=== PATIENT | female | born 1975 | race Caucasian/White ===

== ENCOUNTER → 2018-06-25 15:00 | Outpatient (CLI) | payer OTHER, SELFPAY | PROVIDERS: Family Provider Family Medicine; PCP Family Medicine; Visit Provider Nurse Practitioner Women's Health | DX: N89.8 Other specified noninflammatory disorders of vagina (principal) | CPT/HCPCS: 87070; 87205 ==

== ENCOUNTER → 2019-07-03 | Outpatient (CLI) | payer OTHER, SELFPAY ==
--- NOTE | 2019-07-03 07:38 | BI_ITS ---
MAMMOGRAPHY - BILATERAL SCREENING REASON FOR EXAM: Female, 43 years old. Routine annual screening examination. PERTINENT HISTORY: Non-contributory. TECHNIQUE: Digital bilateral breast sriram (3D mammographic acquisition) in the CC and MLO projections. 2-D mediolateral oblique (MLO) and craniocaudad (CC) views of both breasts were obtained. CAD: Full Field Digital Mammography with Computer Added Detection was performed. COMPARISON: Comparison is made with prior outside examination dated June 21, 2016. FINDINGS: Breast Composition: The breasts are extremely dense, which lowers the sensitivity of mammography. There are no dominant masses or suspicious calcifications. No other significant abnormalities are identified. There has been no significant change since the prior study. BI/SCREEN MAMM (CAD) W/SRIRAM BILAT IMPRESSION: Stable bilateral screening mammogram. Yearly follow-up mammogram recommended. (A) ASSESSMENT CATEGORY: BIRADS Category 1: Negative. A letter regarding these results will be sent to the patient by the facility within 30 days. Approximately 10% of breast cancers are not detected by mammography. A normal mammogram should not delay biopsy of a clinically suspicious abnormality. [id number] Electronically Signed: Rohan Bey, at 9:26 EDT , Service support ,
[2019-07-03 09:44] LABS: Absolute Lymphocyte Count 1.59 X10^3/uL (0.83-4.51); Absolute Neutrophil Count 3.9 X10^3/uL (2.0-7.7); Basophil# 0.06 X10^3/uL; Eosinophil# 0.09 X10^3/uL; Eosinophils% 1.5 % (0-5); Hematocrit 47.7 % (37-47); Hemoglobin 16.3 g/dL (12.0-15.0); Lymphocyte # 1.59 X10^3/ul (4.0); Lymphocyte % 25.6 % (19-41); Mean Corp Hgb Conc 34.2 g/dL (32-36); Mean Corpuscular Hgb 32.1 pg (27.0-32.0); Mean Corpuscular Volume 94.1 fL (81-99); Mean Platelet Vol. 10.6 fl (6.2-12.0); Monocyte# 0.51 X10^3/uL; Monocyte% 8.2 % (0-10); NRBC Flagged by Analyzer 0 % (0-5); Neutrophil # 3.93 X10^3/uL (2.7-7.7); Neutrophil % 63.4 % (47-70); Platelet Count 179 K/mm3 (150-450); RBC Distribution Width CV 11.9 % (11.6-14.6); Red Blood Count 5.07 M/mm3 (4.2-5.4); White Blood Count 6.2 K/mm3 (4.4-11.0)
[2019-07-03 10:11] LABS: T4 Free Direct 1.22 ng/dL (0.76-1.46); Thyroid Stim Hormone (TSH) 2.84 uIU/mL (0.358-3.74)
== END | disposition home or self-care (01) ==
PROVIDERS: Family Provider Family Medicine; PCP Family Medicine; Referring Provider Nurse Practitioner Women's Health; Visit Provider Nurse Practitioner Women's Health
DX: Z12.31 Encounter for screening mammogram for malignant neoplasm of breast (principal); R53.83 Other fatigue
CPT/HCPCS: 36415; 77063; 77067; 84439; 84443; 85025

== ENCOUNTER → 2020-07-06 | Outpatient (CLI) | payer OTHER, SELFPAY ==
[2020-07-06 09:22] VITALS: BMI 21.9
[2020-07-09 07:35] LABS: HPV APTIMA, High Risk Negative (Negative)
== END | disposition home or self-care (01) ==
LOC: LABSPEC 11:50
PROVIDERS: PCP Family Medicine; Referring Provider Nurse Practitioner Women's Health; Visit Provider Nurse Practitioner Women's Health
DX: Z12.4 Encounter for screening for malignant neoplasm of cervix (principal)
CPT/HCPCS: 87624; 88175; G0145

== ENCOUNTER → 2021-02-11 08:33 | Outpatient (CLI) | payer OTHER, SELFPAY ==
[2020-07-06 09:22] VITALS: BMI 21.9
[2021-02-11 10:46] LABS: Anion Gap 5 (5-15); BUN 12 mg/dL (7-18); BUN/Creat Ratio 12.8 RATIO (10-20); Calcium,Total 8.5 mg/dL (8.5-10.1); Chloride 107 mmol/L (98-107); Cholesterol 121 mg/dL (200); Creatinine, Serum 0.94 mg/dL (0.55-1.02); EST Glomerular Filtration Rate 68 mL/min (>60); Est Glom Filt Rate - Afr Amer 82 mL/min (>60); Free T3 1.9 pg/mL (2.18-3.98); Glucose 82 mg/dL (74-106); High Density Lipoprotein 40 mg/dL; Potassium 4.2 mmol/L (3.5-5.1); Sodium Level 140 mmol/L (136-145); T4 Free Direct 0.99 ng/dL (0.76-1.46); Thyroid Stim Hormone (TSH) 4.07 uIU/mL (0.358-3.74); Triglycerides 64 mg/dL; Very Low Density Lipoprotein 13 mg/dL (5-40)
== END ==
PROVIDERS: PCP Family Medicine; Referring Provider Family Medicine; Visit Provider Family Medicine
DX: Z00.00 Encounter for general adult medical examination without abnormal findings (principal); E03.9 Hypothyroidism, unspecified
CPT/HCPCS: 36415; 80048; 80061; 84439; 84443; 84481

== ENCOUNTER → 2021-04-09 | Outpatient (CLI) | payer OTHER, SELFPAY ==
[2021-04-03 11:21] VITALS: BMI 21.9
== END | disposition home or self-care (01) ==
LOC: LABSPEC 12:09
PROVIDERS: PCP Family Medicine; Referring Provider Physician Assistant Medical; Visit Provider Physician Assistant Medical
DX: L08.9 Local infection of the skin and subcutaneous tissue, unspecified (principal); B95.62 Methicillin resistant Staphylococcus aureus infection as the cause of diseases classified elsewhere
CPT/HCPCS: 87070; 87075; 87205

== ENCOUNTER 2021-04-11 20:03 | Emergency (ER) | payer OTHER, SELFPAY ==
[2021-04-03 11:21] VITALS: BMI 21.9
[2021-04-11 20:04] VITALS: BP 158/70; PULSE 77; RESP 16; TEMP 36.7; O2SAT 99; BMI 23.4
[2021-04-11 21:33] LABS: Absolute Lymphocyte Count 2.12 X10^3/uL (0.83-4.51); Absolute Neutrophil Count 4.2 X10^3/uL (2.0-7.7); Basophil# 0.08 X10^3/uL; Basophil% 1.1 % (0-1); Eosinophil# 0.33 X10^3/uL; Eosinophils% 4.4 % (0-5); Hematocrit 46.4 % (37-47); Hemoglobin 15.1 g/dL (12.0-15.0); Lymphocyte # 2.12 X10^3/ul (0.83-4.51); Lymphocyte % 28.2 % (19-41); Mean Corp Hgb Conc 32.5 g/dL (32-36); Mean Corpuscular Hgb 32.1 pg (27.0-32.0); Mean Corpuscular Volume 98.7 fL (81-99); Mean Platelet Vol. 11.1 fl (6.2-12.0); Monocyte# 0.79 X10^3/uL; Monocyte% 10.5 % (0-10); NRBC Flagged by Analyzer 0 % (0-5); Neutrophil # 4.16 X10^3/uL (2.7-7.7); Neutrophil % 55.4 % (47-70); Platelet Count 203 K/mm3 (150-450); RBC Distribution Width CV 11.8 % (11.6-14.6); RBC Distribution Width SD 43.1 fl (35.1-43.9); White Blood Count 7.5 K/mm3 (4.4-11.0)
[2021-04-11 21:40] LABS: Erythrocyte Sedimentation Rate 2 mm/hr (0-30)
[2021-04-11 21:46] LABS: Anion Gap 7 (5-15); BUN 16 mg/dL (7-18); BUN/Creat Ratio 15.5 RATIO (10-20); CRP < 2.90 mg/L (0.0-3.0); Calcium,Total 8.2 mg/dL (8.5-10.1); Chloride 108 mmol/L (98-107); Creatinine, Serum 1.03 mg/dL (0.55-1.02); EST Glomerular Filtration Rate 61 mL/min (>60); Est Glom Filt Rate - Afr Amer 74 mL/min (>60); Estimated Creatinine Clearance 68.11 ml/min; Glucose 80 mg/dL (74-106); Potassium 3.8 mmol/L (3.5-5.1); Sodium Level 136 mmol/L (136-145)
--- NOTE | 2021-04-11 22:25 | EDS_ITS ---
HPI History of Present Illness Chief Complaint: Cellulitis Informant: patient Onset/Context/Timing Onset: Weeks (3 weeks) Context: Gradual Onset Current Severity: Moderate Maximum Severity: Moderate Narrative Narrative: Patient presents with 3-week history of redness and swelling to her left lower extremity. She is currently on antibiotics. [facility] on [facility] and started on Keflex. She followed up the following week with her PCP and then dermatology. She had punch biopsies performed 2 days ago. She is currently on doxycycline and triamcinolone cream topically. Patient presents tonight because it does not seem to be improving. She is also noting some red raised areas to her right adorno. She denies that the area is painful. She has not had fevers or chills. No weeping lesions. [facility] Medical History Anemia hx of child Stomach ulcer Thyroid disease Home Medications ferrous sulfate 65 mg PO BID 11/10/14 [History Last Taken 11/17/14 05:30] desogestrel 0.15 mg-ethinyl estradiol 0.03 mg tablet 1 tab PO QDAY #84 tab 07/06/20 [Rx Last Taken Unknown] doxycycline monohydrate [Mondoxyne NL] 100 mg PO BID 04/11/21 [History Last Taken Unknown] levothyroxine [Synthroid] 88 mcg PO DAILY 04/11/21 [History Last Taken Unknown] triamcinolone acetonide applic TOPICAL 04/11/21 [History Last Taken Unknown] Allergy/AdvReac Type Severity Reaction Status Date / Time No Known Allergies Allergy Verified 04/11/21 20:04 Surgical History Hernia Social History Smoking Status: Never smoker alcohol intake: current alcohol intake frequency: a few times a month details: social substance use type: does not use caffeine: Yes what type of physical activity do you participate in: walking frequency: 5-6 times per week seatbelt use: always do you feel safe at home: Yes additional social history: [facility] [employer] 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[employer] [facility] ED Constitutional Constitutional ED: Denies chills or fever(s) Eyes Eyes: Denies change in vision ENT ENT ED: Denies sore throat Cardiovascular Cardiovascular: Denies chest pain Respiratory/Chest Respiratory/Chest: Denies cough or dyspnea Gastrointestinal Gastrointestinal: Denies abdominal pain, diarrhea, nausea or vomiting Genitourinary Genitourinary ED: Denies dysuria Musculoskeletal Musculoskeletal: Denies back pain Integumentary Reports rash Neurologic Neurologic: Denies headache(s) or weakness Psychiatric Psychiatric: Denies anxiety or depression Endocrine Endocrinology: Denies polydipsia or polyuria Allergic/Immunologic Allergic/Immunologic ED: Denies urticaria EXAM Physical Exam Const Vital Signs: 04/11/21 20:04 04/11/21 22:37 Temperature 98.1 F Temperature Source Temporal Pulse Rate 77 81 Respiratory Rate 16 18 Blood Pressure 158/70 H 145/78 H Blood Pressure Mean 99 Pulse Ox 99 98 Oxygen Delivery Method Room Air Positive well nourished and well developed General Appearance ED: well developed HEENT Reports normocephalic and head/scalp atraumatic Eyes PERRL and EOMs intact bilaterally Neck supple Chest Wall inspection of chest normal and palpation of chest normal Resp normal respiratory effort and clear to auscultation bilaterally Cardio regular rate and regular rhythm GI normal to inspection, nondistended, normoactive bowel sounds Palpation: soft Extremity Extremity Narrative: Left lower extremity: Erythema around the anterior two thirds of the leg. Some satellite erythema lesions noted superiorly. No blisters or open wounds. Area is not significantly hot to the touch. Biopsy sites appear to be healing appropriately. Right lower extremity: Findings consistent with folliculitis noted over the anterior right adorno. No sign of cellulitis. Neuro oriented x3 and no sensory deficits noted Sensorium / Orientation: alert Motor Exam: strength 5/5 throughout Psych mental status grossly normal Skin no rashes or lesions noted MDM MDM MDM Narrative Medical decision making narrative: Blood work including sed rate and CRP are obtained. Lab Data Labs: Laboratory Results - last 24 hr 04/11/21 04/11/21 21:20 21:20 WBC 7.5 RBC 4.70 Hgb 15.1 H Hct 46.4 MCV 98.7 MCH 32.1 H MCHC 32.5 RDW Std Deviation 43.1 RDW Coeff of Wilfred 11.8 Plt Count 203 MPV 11.1 Immature Gran % (Auto) 0.400 Neut % (Auto) 55.4 Lymph % (Auto) 28.2 [place] % (Auto) 10.5 H Eos % (Auto) 4.4 Baso % (Auto) 1.1 H Absolute Neuts (auto) 4.2 Absolute Lymphs (auto) 2.12 Nucleated RBC % 0 ESR 2 Sodium 136 Potassium 3.8 Chloride 108 H Carbon Dioxide 21.0 Anion Gap 7 BUN 16 Creatinine 1.03 H Estim Creat Clear Calc 68.11 Est GFR (MDRD) Af Amer 74 Est GFR (MDRD) Non-Af 61 BUN/Creatinine Ratio 15.5 Glucose 80 Calcium 8.2 L C-React Prot Ext Range < 2.90 Treatment and Re-Evaluation Comments:: Lab work is unremarkable at this time. I did give the patient a dose of IV steroids. She will continue to use steroids topically. I encouraged her to follow-up this week for biopsy results as I feel this will be the marin in determining the cause of her presentation. At this time there is no sign of acute infection. Discharge Plan Triage Chief Complaint: Cellulitis ED Provider: Leandra Patel Dx/Rx/DC Orders Clinical Impression: Erythema of lower extremity Instructions: ED Erythema Prescriptions: No Action desogestrel-ethinyl estradiol [Enskyce] 0.15-0.03 mg tablet 1 tab PO QDAY Qty: 84 RF: 4 ferrous sulfate 325 MG tablet 65 mg PO BID RF: 0 triamcinolone acetonide 0.1 % cream TOPICAL RF: 0 levothyroxine [Synthroid] 88 mcg tablet 88 mcg PO DAILY RF: 0 doxycycline monohydrate [Mondoxyne NL] 100 mg capsule 100 mg PO BID RF: 0 Primary Care Provider: Dimitry Mao Referrals: Lizy Spicer MD [NON-STAFF] - 5-7 Days Dimitry Mao MD [Primary Care Provider] - Disposition Disposition: Home, self care Discharge Date/Time: 04/11/21 22:43
[2021-04-11] MEDS: MethylPREDNISolone 125 MG/2 ML Vial IV (22:33)
[2021-04-11 22:37] VITALS: BP 145/78; PULSE 81; RESP 18; O2SAT 98
== END 2021-04-11 22:43 | disposition home or self-care (01) ==
PROVIDERS: Emergency Provider Emergency Medicine; PCP Family Medicine
DX: L53.8 Other specified erythematous conditions (principal); D64.9 Anemia, unspecified; Z87.11 Personal history of peptic ulcer disease; Z79.899 Other long term (current) drug therapy
CPT/HCPCS: 80048; 85025; 85652; 86140; 96374; 99283; A4216

== ENCOUNTER → 2021-04-16 12:18 | Outpatient (CLI) | payer OTHER, SELFPAY ==
[2021-04-11 20:04] VITALS: BMI 23.4
[2021-04-16 12:21] LABS: Lyme Ab Screen Interpretation REF LAB
[2021-04-19 20:33] LABS: Lyme Scn Total Ab w/Rflx <0.91 ISR (0.00-0.90)
== END ==
PROVIDERS: PCP Family Medicine; Referring Provider Family Medicine; Visit Provider Family Medicine
DX: L03.119 Cellulitis of unspecified part of limb (principal); L02.419 Cutaneous abscess of limb, unspecified
CPT/HCPCS: 36415; 86618

== ENCOUNTER → 2021-04-19 10:20 | Outpatient (CLI) | payer OTHER, SELFPAY ==
[2021-04-11 20:04] VITALS: BMI 23.4
[2021-04-19 12:46] LABS: Erythrocyte Sedimentation Rate < 1 mm/hr (0-30)
[2021-04-19 12:48] LABS: Absolute Lymphocyte Count 0.56 X10^3/uL (0.83-4.51); Absolute Neutrophil Count 10.5 X10^3/uL (2.0-7.7); Basophil# 0.06 X10^3/uL; Basophil% 0.5 % (0-1); Eosinophil# 0.08 X10^3/uL; Eosinophils% 0.7 % (0-5); Hematocrit 44.4 % (37-47); Lymphocyte # 0.56 X10^3/ul (0.83-4.51); Lymphocyte % 4.9 % (19-41); Mean Corp Hgb Conc 33.8 g/dL (32-36); Mean Corpuscular Hgb 31.4 pg (27.0-32.0); Mean Corpuscular Volume 93.1 fL (81-99); Mean Platelet Vol. 11.4 fl (6.2-12.0); Monocyte# 0.23 X10^3/uL; NRBC Flagged by Analyzer 0 % (0-5); Neutrophil # 10.49 X10^3/uL (2.7-7.7); Neutrophil % 91.3 % (47-70); POSITIVE DIFFERENTIAL YES; Platelet Count 350 K/mm3 (150-450); RBC Distribution Width SD 41.5 fl (35.1-43.9); Red Blood Count 4.77 M/mm3 (4.2-5.4); White Blood Count 11.5 K/mm3 (4.4-11.0)
[2021-04-19 12:50] LABS: Differential Indicated SCAN CRITERIA MET
[2021-04-19 13:16] LABS: CRP, High Sensitivity Cardiac 0.48 mg/L; Free T3 2.1 pg/mL (2.18-3.98); T4 Free Direct 1.45 ng/dL (0.76-1.46); Thyroid Stim Hormone (TSH) 3.96 uIU/mL (0.358-3.74)
[2021-04-20 18:58] LABS: ANTINUCLEAR ANTIBODIES DIRECT Negative (Negative); Anti-dsDNA Ab 5 IU/mL (0-9)
== END ==
PROVIDERS: PCP Family Medicine; Visit Provider Family Medicine
DX: L27.0 Generalized skin eruption due to drugs and medicaments taken internally (principal); D64.9 Anemia, unspecified; E03.9 Hypothyroidism, unspecified
CPT/HCPCS: 36415; 84439; 84443; 84481; 85025; 85652; 86038; 86141; 86225

== ENCOUNTER → 2021-06-09 13:11 | Outpatient (CLI) | payer OTHER, SELFPAY ==
--- NOTE | 2021-06-09 13:13 | BI_ITS ---
MAMMOGRAPHY - BILATERAL SCREENING REASON FOR EXAM: Female, 45 years old. Routine annual screening examination. PERTINENT HISTORY: Non-contributory. TECHNIQUE: Digital bilateral breast sriram (3D mammographic acquisition) in the CC and MLO projections. 2-D mediolateral oblique (MLO) and craniocaudad (CC) views of both breasts were obtained. CAD: Full Field Digital Mammography with Computer Added Detection was performed. COMPARISON: Comparison is made with prior study dated 07/03/2019. FINDINGS: Breast Composition: The breasts are extremely dense, which lowers the sensitivity of mammography. There are no dominant masses or suspicious calcifications. No other significant abnormalities are identified. There has been no significant change since the prior study. BI/SCRN MAMM (CAD)W/SRIRAM BILAT IMPRESSION: Stable bilateral screening mammogram. Yearly follow-up mammogram recommended. (A) ASSESSMENT CATEGORY: BIRADS Category 1: Negative. A letter regarding these results will be sent to the patient by the facility within 30 days. Approximately 10% of breast cancers are not detected by mammography. A normal mammogram should not delay biopsy of a clinically suspicious abnormality. [id number] Electronically Signed: Rohan Bey MD at 14:05 EDT , Service support ,
== END ==
PROVIDERS: PCP Family Medicine; Referring Provider Nurse Practitioner Women's Health; Visit Provider Nurse Practitioner Women's Health
DX: Z12.31 Encounter for screening mammogram for malignant neoplasm of breast (principal)
CPT/HCPCS: 77063; 77067

== ENCOUNTER → 2021-06-17 15:48 | Outpatient (CLI) | payer OTHER, SELFPAY ==
[2021-06-17 15:14] VITALS: BMI 23.4
[2021-06-17 16:43] LABS: Follicle Stimulating Hormone 104.4 mIU/mL
== END ==
PROVIDERS: PCP Family Medicine; Referring Provider Nurse Practitioner Women's Health; Visit Provider Nurse Practitioner Women's Health
DX: N91.2 Amenorrhea, unspecified (principal)
CPT/HCPCS: 36415; 83001

== ENCOUNTER → 2021-07-01 09:54 | Outpatient (CLI) | payer OTHER, SELFPAY ==
[2021-06-17 15:14] VITALS: BMI 23.4
--- NOTE | 2021-07-01 09:57 | ART_ITS ---
Reason For Study: ulcer Procedure A bilateral lower extremity continuous wave Doppler with analog waveform analysis,segmental pressures,and ankle brachial indexes with exercise. Left Segmental Pressures Left brachial= 112mmHg. Left posterior tibial artery = 144mmHg. Left dorsalis pedis artery = 123mmHg. The left dorsalis pedis waveforms are triphasic. The left posterior tibial artery waveforms are triphasic. Right Segmental Pressures Right brachial= 119mmHg. Right posterior tibial artery = 137mmHg. Right dorsalis pedis artery = 133mmHg. The right dorsalis pedis waveforms are triphasic. The right posterior tibial artery waveforms are triphasic. Indices The right ankle brachial index by the dorsalis pedis is 1.12. The right ankle brachial index by the posterior tibial artery is 1.15. The right post exercise ankle brachial index is 1.32. The left ankle brachial index by the posterior tibial artery is 1.03. The left ankle brachial index by the dorsalis pedis is 1.21. The left post exercise ankle brachial index is 1.33. VL/Lower Ext Art Exam w/ Exercise Interpretation Summary Normal bilateral lower extremity ankle-brachial indices with normal bilateral p osterior tibialis and dorsalis pedis triphasic Doppler waveforms Normal bilateral lower extremity response to exercise with the right FUENTES going from 1.15 to immediately after exercise at 1.32 and the left FUENTES going from the resting 1.21 to immediately exercise at 1.33 Ordering Physician: Lazara Hickey Performed By: TRISTIAN LAURA Brayden
== END ==
PROVIDERS: PCP Family Medicine; Referring Provider Nurse Practitioner Women's Health; Visit Provider Nurse Practitioner Women's Health
DX: L53.9 Erythematous condition, unspecified (principal); L03.119 Cellulitis of unspecified part of limb; L02.419 Cutaneous abscess of limb, unspecified
CPT/HCPCS: 93924

== ENCOUNTER → 2022-03-23 | Outpatient (CLI) | payer OTHER, SELFPAY ==
[2022-03-23 15:55] LABS: Lyme Ab Screen Interpretation REF LAB
[2022-03-23 17:45] LABS: Absolute Neutrophil Count 2.7 X10^3/uL (2.0-7.7); Basophil# 0.06 X10^3/uL; Basophil% 1.1 % (0-1); Eosinophil# 0.41 X10^3/uL; Eosinophils% 7.3 % (0-5); Hematocrit 43.3 % (37-47); Hemoglobin 14.3 g/dL (12.0-15.0); Lymphocyte % 31.9 % (19-41); Mean Corpuscular Hgb 30.7 pg (27.0-32.0); Mean Corpuscular Volume 92.9 fL (81-99); Mean Platelet Vol. 11.6 fl (6.2-12.0); Monocyte# 0.67 X10^3/uL; Monocyte% 11.9 % (0-10); NRBC Flagged by Analyzer 0 % (0-5); Neutrophil # 2.69 X10^3/uL (2.7-7.7); Neutrophil % 47.6 % (47-70); Platelet Count 256 K/mm3 (150-450); RBC Distribution Width CV 11.9 % (11.6-14.6); RBC Distribution Width SD 40.5 fl (35.1-43.9); Red Blood Count 4.66 M/mm3 (4.2-5.4); White Blood Count 5.6 K/mm3 (4.4-11.0)
[2022-03-23 18:52] LABS: Anion Gap 5 (5-15); BUN 12 mg/dL (7-18); BUN/Creat Ratio 15.3 RATIO (10-20); CRP < 2.90 mg/L (0.0-3.0); Chloride 107 mmol/L (98-107); Creatinine, Serum 0.79 mg/dL (0.55-1.02); EST Glomerular Filtration Rate 83 mL/min (>60); Est Glom Filt Rate - Afr Amer 100 mL/min (>60); Glucose 91 mg/dL (74-106); Potassium 4.1 mmol/L (3.5-5.1); Rheumatoid Factor < 10.0 IU/mL (<15); Sodium Level 140 mmol/L (136-145)
[2022-03-23 18:59] LABS: Erythrocyte Sedimentation Rate 4 mm/hr (0-30)
[2022-03-25 18:08] LABS: ANTINUCLEAR ANTIBODIES DIRECT Negative (Negative)
== END | disposition home or self-care (01) ==
LOC: MFPLAB 15:53
PROVIDERS: PCP Family Medicine; Referring Provider Family Medicine; Visit Provider Family Medicine
DX: R21 Rash and other nonspecific skin eruption (principal)
CPT/HCPCS: 36415; 80048; 85025; 85652; 86038; 86140; 86431; 86618

== ENCOUNTER → 2022-03-25 | Outpatient (CLI) | payer OTHER, SELFPAY ==
[2022-03-25 17:46] LABS: Color, Urine Yellow (Yellow); Glucose, Dipstick Normal (Normal); Ketone-Dipstick Negative (Negative); Leukocyte Esterase-Dipstick 100 /ul (Negative); Nitrite-Dipstick Positive (Negative); Occult Blood-Urine 10 /ul (Negative); Protein-Dipstick Negative (Negative); Urine Bilirubin Dipstick Negative (Negative); Urine Clarity Clear (Clear); Urine Urobilinogen Normal (Normal)
[2022-03-25 17:53] LABS: Protein, Urine (Random) < 6.0 mg/dL (<11.9); Protein:Creat Ratio 110 mg/g CRE (0-200)
[2022-03-28 09:51] LABS: Hepatitis B Surface Antibody Reactive; Hepatitis B Surface Antigen Non-Reactive (Nonreactive); Hepatitis C Antibody Non-Reactive (Nonreactive)
[2022-03-29 15:08] LABS: PROELU- Albumin, Urine 26.8 % (.); PROELU- Alpha-1-Globulin,Ur 7.1 % (.); PROELU- Alpha-2-Globulin,Ur 21.8 % (.); PROELU- Gamma Globulin, Ur 14.4 % (.); Total Protein, Ur 14.6 mg/dL (Not Estab.)
[2022-03-29 15:32] LABS: CCP IgG Antibodies 10 units (0-19)
== END | disposition home or self-care (01) ==
PROVIDERS: PCP Family Medicine; Referring Provider Family Medicine; Visit Provider Internal Medicine Rheumatology
DX: M06.4 Inflammatory polyarthropathy (principal); R21 Rash and other nonspecific skin eruption; E03.9 Hypothyroidism, unspecified
CPT/HCPCS: 36415; 81002; 82570; 84156; 84166; 86200; 86706; 86803; 87340

== ENCOUNTER → 2022-05-19 | Outpatient (CLI) | payer OTHER, SELFPAY ==
[2022-05-19 12:29] LABS: Vitamin D,25 Hydroxy 37.8 ng/mL
[2022-05-25 06:08] LABS: Immunoglobulin A 299 mg/dL (87-352); Immunoglobulin E 54 IU/mL (6-495); Immunoglobulin G 1181 mg/dL (586-1602); Immunoglobulin M 114 mg/dL (26-217)
[2022-05-26 16:51] LABS: C1 EST Inhibitor, Functional >100 (.); Complement CH50 59 U/mL (>41); Thyroid Peroxidase AB 200 IU/mL (0-34)
== END | disposition home or self-care (01) ==
PROVIDERS: PCP Family Medicine; Referring Provider Nurse Practitioner; Visit Provider Nurse Practitioner
DX: L50.1 Idiopathic urticaria (principal); D84.9 Immunodeficiency, unspecified; E55.9 Vitamin D deficiency, unspecified; E07.9 Disorder of thyroid, unspecified
CPT/HCPCS: 36415; 82306; 82784; 82785; 83520; 86160; 86161; 86162; 86376

== ENCOUNTER → 2022-07-07 | Outpatient (CLI) | payer OTHER, SELFPAY ==
[2022-07-07 16:52] LABS: Absolute Lymphocyte Count 2.27 X10^3/uL (0.83-4.51); Absolute Neutrophil Count 3.8 X10^3/uL (2.0-7.7); Basophil# 0.06 X10^3/uL; Basophil% 0.9 % (0-1); Eosinophil# 0.12 X10^3/uL; Eosinophils% 1.7 % (0-5); Hematocrit 44.2 % (37-47); Hemoglobin 14.6 g/dL (12.0-15.0); Lymphocyte # 2.27 X10^3/ul (0.83-4.51); Lymphocyte % 32.6 % (19-41); Mean Corpuscular Hgb 31.1 pg (27.0-32.0); Mean Platelet Vol. 10.8 fl (6.2-12.0); Monocyte# 0.66 X10^3/uL; Monocyte% 9.5 % (0-10); NRBC Flagged by Analyzer 0 % (0-5); Neutrophil # 3.83 X10^3/uL (2.7-7.7); Platelet Count 263 K/mm3 (150-450); RBC Distribution Width CV 11.9 % (11.6-14.6); RBC Distribution Width SD 41.7 fl (35.1-43.9)
[2022-07-07 17:45] LABS: CRP < 2.90 mg/L (0.0-3.0)
[2022-07-12 08:49] LABS: CCP IgG Antibodies 9 units (0-19)
[2022-07-12 12:46] LABS: Anti-Nuclear Antibody Test Negative (.)
== END | disposition home or self-care (01) ==
LOC: LAB 16:34
PROVIDERS: PCP Family Medicine; Visit Provider Nurse Practitioner
DX: J30.9 Allergic rhinitis, unspecified (principal); D84.9 Immunodeficiency, unspecified; J45.50 Severe persistent asthma, uncomplicated; R06.00 Dyspnea, unspecified; J32.9 Chronic sinusitis, unspecified; T78.3XXD Angioneurotic edema, subsequent encounter; T78.09XD Anaphylactic reaction due to other food products, subsequent encounter; Z91.038 Other insect allergy status; E55.9 Vitamin D deficiency, unspecified; E07.9 Disorder of thyroid, unspecified
CPT/HCPCS: 36415; 83520; 85025; 86038; 86140; 86200

== ENCOUNTER → 2022-08-19 | Outpatient (CLI) | payer OTHER, SELFPAY ==
[2022-08-19 11:40] LABS: Absolute Lymphocyte Count 1.52 X10^3/uL (0.83-4.51); Absolute Neutrophil Count 2.6 X10^3/uL (2.0-7.7); Basophil# 0.05 X10^3/uL; Basophil% 1.1 % (0-1); Eosinophil# 0.06 X10^3/uL; Eosinophils% 1.3 % (0-5); Hematocrit 45.9 % (37-47); Hemoglobin 15.2 g/dL (12.0-15.0); Lymphocyte # 1.52 X10^3/ul (0.83-4.51); Lymphocyte % 31.9 % (19-41); Mean Corp Hgb Conc 33.1 g/dL (32-36); Mean Corpuscular Volume 93.5 fL (81-99); Mean Platelet Vol. 10.8 fl (6.2-12.0); Monocyte# 0.52 X10^3/uL; Monocyte% 10.9 % (0-10); NRBC Flagged by Analyzer 0 % (0-5); Neutrophil % 54.6 % (47-70); Platelet Count 267 K/mm3 (150-450); RBC Distribution Width CV 11.4 % (11.6-14.6); RBC Distribution Width SD 39.3 fl (35.1-43.9); Red Blood Count 4.91 M/mm3 (4.2-5.4); White Blood Count 4.8 K/mm3 (4.4-11.0)
[2022-08-19 12:14] LABS: T4 Free Direct 1.11 ng/dL (0.76-1.46); Thyroid Stim Hormone (TSH) 4.82 uIU/mL (0.358-3.74)
== END | disposition home or self-care (01) ==
LOC: LAB 11:04
PROVIDERS: PCP Family Medicine; Referring Provider Internal Medicine Endocrinology, Diabetes & Metabolism; Visit Provider Internal Medicine Endocrinology, Diabetes & Metabolism
DX: D64.9 Anemia, unspecified (principal); E03.8 Other specified hypothyroidism; E06.3 Autoimmune thyroiditis
CPT/HCPCS: 36415; 84439; 84443; 85025

== ENCOUNTER → 2022-10-19 | Outpatient (CLI) | payer OTHER, SELFPAY ==
[2022-10-19 10:54] LABS: T4 Free Direct 1.09 ng/dL (0.76-1.46); Thyroid Stim Hormone (TSH) 2.44 uIU/mL (0.358-3.74)
== END | disposition home or self-care (01) ==
PROVIDERS: PCP Family Medicine; Referring Provider Internal Medicine Endocrinology, Diabetes & Metabolism; Visit Provider Internal Medicine Endocrinology, Diabetes & Metabolism
DX: E03.8 Other specified hypothyroidism (principal); E06.3 Autoimmune thyroiditis
CPT/HCPCS: 36415; 84439; 84443

== ENCOUNTER → 2023-06-19 | Outpatient (CLI) | payer OTHER, SELFPAY ==
--- NOTE | 2023-06-19 07:23 | BI_ITS ---
MAMMOGRAPHY - BILATERAL SCREENING REASON FOR EXAM: Female, 47 years old. Routine annual screening examination. PERTINENT HISTORY: Non-contributory. TECHNIQUE: Digital bilateral breast sriram (3D mammographic acquisition) in the CC and MLO projections. 2-D mediolateral oblique (MLO) and craniocaudad (CC) views of both breasts were obtained. CAD: Full Field Digital Mammography with Computer Added Detection was performed. COMPARISON: Comparison is made with prior study dated June 09, 2021 and July 03, 2019. FINDINGS: Breast Composition: The breasts are extremely dense, which lowers the sensitivity of mammography. There are no dominant masses or suspicious calcifications. No other significant abnormalities are identified. There has been no significant change since the prior study. BI/SCRN MAMM (CAD)W/SRIRAM BILAT IMPRESSION: Stable bilateral screening mammogram. Yearly follow-up mammogram recommended. (A) ASSESSMENT CATEGORY: BIRADS Category 1: Negative. A letter regarding these results will be sent to the patient by the facility within 30 days. Approximately 10% of breast cancers are not detected by mammography. A normal mammogram should not delay biopsy of a clinically suspicious abnormality. [id number] Electronically Signed: Rohan Bey MD at 8:50 EDT ,
== END | disposition home or self-care (01) ==
LOC: OPBI 07:22
PROVIDERS: PCP Family Medicine; Referring Provider Nurse Practitioner Women's Health; Visit Provider Nurse Practitioner Women's Health
DX: Z12.31 Encounter for screening mammogram for malignant neoplasm of breast (principal)
CPT/HCPCS: 77063; 77067

== ENCOUNTER → 2023-09-05 | Outpatient (CLI) | payer OTHER, SELFPAY ==
[2023-09-05 16:04] LABS: Absolute Lymphocyte Count 2.12 X10^3/uL (0.83-4.51); Absolute Neutrophil Count 4.2 X10^3/uL (2.0-7.7); Basophil% 1.4 % (0-1); Eosinophils% 2.7 % (0-5); Hemoglobin 14.8 g/dL (12.0-15.0); Lymphocyte # 2.12 X10^3/ul (0.83-4.51); Lymphocyte % 28.9 % (19-41); Mean Corp Hgb Conc 32.2 g/dL (32-36); Mean Corpuscular Hgb 30.6 pg (27.0-32.0); Mean Corpuscular Volume 95.2 fL (81-99); Mean Platelet Vol. 11.2 fl (6.2-12.0); Monocyte# 0.71 X10^3/uL; Monocyte% 9.7 % (0-10); NRBC Flagged by Analyzer 0 % (0-5); Neutrophil # 4.19 X10^3/uL (2.7-7.7); Platelet Count 287 K/mm3 (150-450); RBC Distribution Width CV 12.1 % (11.6-14.6); RBC Distribution Width SD 42.3 fl (35.1-43.9); Red Blood Count 4.83 M/mm3 (4.2-5.4); White Blood Count 7.3 K/mm3 (4.4-11.0)
[2023-09-05 16:28] LABS: Vitamin D,25 Hydroxy 39.6 ng/mL
[2023-09-05 16:35] LABS: Cholesterol 117 mg/dL (200); Ferritin 20 ng/mL (8-252); High Density Lipoprotein 50 mg/dL; T4 Free Direct 1.05 ng/dL (0.76-1.46); Thyroid Stim Hormone (TSH) 2.33 uIU/mL (0.358-3.74); Triglycerides 93 mg/dL; Very Low Density Lipoprotein 19 mg/dL (5-40)
== END | disposition home or self-care (01) ==
LOC: LAB 15:31
PROVIDERS: PCP Family Medicine; Referring Provider Internal Medicine Endocrinology, Diabetes & Metabolism; Visit Provider Internal Medicine Endocrinology, Diabetes & Metabolism
DX: E03.8 Other specified hypothyroidism (principal); E06.3 Autoimmune thyroiditis; E55.9 Vitamin D deficiency, unspecified
CPT/HCPCS: 36415; 80061; 82306; 82728; 84439; 84443; 85025

== ENCOUNTER 2023-11-22 07:52 | Day surgery (SDC) | payer OTHER, SELFPAY ==
[2023-11-22 08:23] VITALS: BP 99/66; PULSE 63; RESP 12; TEMP 36.3; O2SAT 100; BMI 20.7
[2023-11-22] MEDS: Lactated Ringers 1,000 ML 15 ML IV (08:38)
--- NOTE | 2023-11-22 08:38 | H&P.OPEN ---
[facility] - General General Date of Service: 11/22/23 [facility] Narrative KURTIS WOO, is a 48 F who presents for screening colonoscopy. Patient never had previous colonoscopy. Patient denies any family history of colon cancer in immediate family. Patient's bowel movements daily denies any blood. Patient denies any chronic abdominal pain/nausea/vomiting/reflux. 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 Non-smoker Post-menopausal Thyroid disease Wears contact lenses Home Medications ferrous sulfate 325 mg (65 mg iron) tablet 65 mg PO .QOD 07/04/22 [History Last Taken 11/14/23] levothyroxine 88 mcg tablet (Synthroid) 88 mcg PO .daily, 1 / on #96 tabs 09/13/23 [Rx Last Taken 11/19/23] estradiol 0.01% (0.1 mg/gram) vaginal cream 1 appful vaginal SUTH 11/17/23 [History Last Taken 11/17/23] levothyroxine 88 mcg capsule 132 mcg PO CHENEY 11/17/23 [History Last Taken 11/22/23] Allergy/AdvReac Type Severity Reaction Status Date / Time doxycycline Allergy Intermediate Rash Verified 11/22/23 08:22 Family History (Updated 09/20/23 @ 08:28 by Kim Bonilla) Grandfather Colon cancer Other Anemia Autoimmune disorder Surgical History (Updated 11/17/23 @ 11:20 by Anna Cooper) History of umbilical hernia repair Social History Smoking Status: Never smoker alcohol intake: current alcohol intake frequency: 0-2 drinks per day details: social substance use type: does not use caffeine: Yes what type of physical activity do you participate in: walking and additional details: treadmill frequency: 5-6 times per week seatbelt use: always do you feel safe at home: Yes additional social history: [employer] 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Past Medical/Surgical History Planned Operation Planned Operative Procedure/s: CSCOPE OA S.O.S: No Previous Hospitalizations/Surgeries HX Hospitalizations: No HX of Surgeries: VAGINAL CHILDBIRTH X 2 Any Problems With Anesthesia: No You/Your Family Experience Fever (Hyperthermia) With Anes: No Cholinesterase deficiency: No Cardiovascular Hx Chest Pain within Last 2 months: No Hx of Irregular Heartbeat and/or Afib: No Hx Heart Attack: No Hx Congestive Heart Failure: No Hx Rheumatic Fever: No Hx Hypertension: No Hx Internal Defibrillator: No Hx Pacemaker: No Hx Cardiac Catheterization: No Hx Cardiac Surgery/Stents/Etc.: No Hx Stress Test: No Hx Pain in Legs when Walking/Leg Cramps: No Respiratory Chronic Cough: No HX of Shortness of Breath: No Hoarseness: No Hx Chronic Obstructive Pulmonary Disease (COPD): No Hx Asthma: No Hx Emphysema: No Hx Sleep Apnea: No CPAP: No BIPAP: No Hx Respiratory Tract Infection/Cold (presently): No Do You Snore Loudly (louder than talking or can be heard): No Do You Often Feel Tired/ Fatigued/ Sleepy Dring Daytime?: No Has Anyone Observed You Stop Breathing During Sleep?: No Result (for STOP score): Negative Hx Smoking: No Smoking Status: Never smoker Gastrointestinal Hx Gastrointestinal Disorders: No Hx Gastrointestinal Bleed: No Hx Ulcer: Yes (AGE 6) Hx Hiatal Hernia: No Difficulty Chewing/Swallowing: No Special diet followed at home: No Hx Unplanned Weight Loss of 20#: No HX Unplanned Weight Gain of 20#: No Neurological Hx Seizures: No HX Syncope/Blackout Spells/Unconsciousness: No Hx Transient Ischemic Attacks (TIA): No Hx Multiple Sclerosis: No Hx Parkinson's Disease: No Hx Head/Neck Injury: No Hx Headaches: No Hx Back Injury/Pain: No Recent Onset of Speech Difficulty: No Restless Legs: No Does patient have nerve stimulator: No Blood Disorder Hx Leukemia: No Bleeding Tendencies: No Hx Deep Vein Thrombosis: No Hx High Cholesterol: No Blood Transmitted Disease: No Hx Hepatitis: No Hx Cirrhosis: No Hx Anemia: Yes (ON IRON) Hx Blood Disorders: No Reproduction : No Is Patient Lactating: No Hx Hysterectomy: No Hx Tubal Ligation: No Are You Post Menopause: No Genitourinary Hx Renal Disease: No Musculoskeletal Hx Arthritis: No Hx Rheumatoid Arthritis: No Hx Gout: No Recent Onset of an Orthopedic Problem: No Endocrine Hx Diabetes: No Thyroid Disease: Yes (ON MED) Hx Steroid Therapy: No Psycho/Social Hx Substance Use: No Hx Alcohol Use: Yes (OCCASIONAL SOCIAL) Hx Anxiety: No Hx Depression: No Mental Illness: No Hx Dementia: No Miscellaneous Hx Cancer: No Recent Exposure to Contagious Disease: No Hx of C-Diff: No Any Loose Teeth: No Allergies doxycycline Allergy (Intermediate, Verified 11/22/23 08:22) Rash Discharge Is Pt Admitted From a Residential, or a [place] [facility]: No After D/C, Where Do you Plan to Go: Return Home Vital Signs Vital Signs Vital Signs: 11/22/23 08:23 11/22/23 08:23 Temperature 97.4 F L Temperature Source Temporal Pulse Rate 63 Respiratory Rate 12 Respiratory Pattern Normal Blood Pressure 99/66 Blood Pressure Mean 77 Blood Pressure Source Manual Blood Pressure Position Sitting Blood Pressure Location Left Arm Pulse Ox 100 Oxygen Delivery Method Room Air Weight Weight: 136 lb 10.986 oz Body Mass Index (BMI) 20.7 Physical Exam Const alert, oriented x3 and no apparent distress HEENT normocephalic and head/scalp atraumatic Resp normal respiratory effort Cardio regular rate GI soft to palpation and non-tender; Negative for non-distended Palpation: Negative for guarding Extremity no clubbing, cyanosis or edema Skin no rashes or lesions noted Neuro CN's II-XII intact bilaterally Psych mental status grossly normal Assessment & Plan Assessment/Plan (1) Encounter for screening for malignant neoplasm of colon: Surgery Risks - Colonoscopy Risks Include but are not Limited To: Risks include but are not limited to: Bleeding, perforation requiring further surgery, inability to complete colonoscopy requiring barium enema.
[2023-11-22 09:25] VITALS: BP 110/73; BP 99/66; PULSE 63; RESP 16; TEMP 36.4; O2SAT 92
--- NOTE | 2023-11-22 09:27 | OP.CCLET_ITS ---
11/22/2023 Dimitry Mao MD [address] [id number] Re : Colonoscopy procedure for Marycheryle Sage Dear Dr. Mao This procedure was performed on Wednesday, November 22, 2023. My impressions and recommendations are as follows: Impressions : - Hemorrhoids found on perianal exam. - Non-bleeding internal hemorrhoids. - The entire examined colon is normal. - No specimens collected. Recommendations : - Discharge patient to home. - Resume previous diet. - Continue present medications. - Repeat colonoscopy in 10 years for screening purposes. My findings are described in the full procedure note, which is enclosed. If I can be of further assistance, please feel free to contact me at Doctor phone number(s): , Work: . Sincerely, MD Nilam Garza MD 11/22/2023 9:26:22 AM This report has been signed electronically.
--- NOTE | 2023-11-22 09:27 | OP.COLON_ITS ---
Patient Name: Mary Sage Procedure Date: 11/22/2023 8:46 AM Date of : 1975 Age: 48 Procedure: Colonoscopy Indications: Screening for colorectal malignant neoplasm Providers: Nilam Elliott MD Referring MD: Nilam Elliott MD Medicines: Monitored Anesthesia Care Patient Profile: This is a 48 year old female. Last Colonoscopy: none. The patient's first colonoscopy is today. Complications: No immediate complications. Procedure: Pre-Anesthesia Assessment: - Prior to the procedure, a History and Physical was performed, and patient medications and allergies were reviewed. The patient's tolerance of previous anesthesia was also reviewed. The risks and benefits of the procedure and the sedation options and risks were discussed with the patient. All questions were answered, and informed consent was obtained. Prior Anticoagulants: The patient has taken no anticoagulant or antiplatelet agents. ASA Grade Assessment: Per anesthesia. After reviewing the risks and benefits, the patient was deemed in satisfactory condition to undergo the procedure. After I obtained informed consent, the scope was passed under direct vision. Throughout the procedure, the patient's blood pressure, pulse, and oxygen saturations were monitored continuously. The pediatric colonoscope was introduced through the anus and advanced to the cecum, identified by the appendiceal orifice, ileocecal valve and palpation. The colonoscopy was technically difficult and complex due to a tortuous colon. The patient tolerated the procedure well. The quality of the bowel preparation was good. Scope In: 9:01:07 AM Scope Withdrawal Time 0 hours 4 minutes 55 seconds Scope Out: 9:19:48 AM Total Procedure Duration Time 0 hours 18 minutes 41 seconds Findings: Hemorrhoids were found on perianal exam. Non-bleeding internal hemorrhoids were found. The hemorrhoids were Grade I (internal hemorrhoids that do not prolapse). The entire examined colon appeared normal. Impression: - Hemorrhoids found on perianal exam. - Non-bleeding internal hemorrhoids. - The entire examined colon is normal. - No specimens collected. Recommendation: - Discharge patient to home. - Resume previous diet. - Continue present medications. - Repeat colonoscopy in 10 years for screening purposes. Procedure Code(s): --- Professional --- G0121, PT, Colorectal cancer screening; colonoscopy on individual not meeting criteria for high risk Diagnosis Code(s): --- Professional --- Z12.11, Encounter for screening for malignant neoplasm of colon K64.0, First degree hemorrhoids CPT copyright 2021 [employer]. All rights reserved. The codes documented in this report are preliminary and upon lumber stacker driver review may be revised to meet current compliance requirements. MD Nilam Garza MD 11/22/2023 9:26:22 AM This report has been signed electronically. Number of Addenda: 0 Note Initiated On: 11/22/2023 8:46 AM
[2023-11-22 09:30] VITALS: BP 91/61; BP 99/66; PULSE 65; RESP 16; O2SAT 93
[2023-11-22 09:35] VITALS: BP 90/54; BP 99/66; PULSE 77; RESP 16; O2SAT 96
[2023-11-22 09:40] VITALS: BP 94/62; BP 99/66; PULSE 74; RESP 16; TEMP 36.4; O2SAT 97
[2023-11-22 09:48] VITALS: BP 99/66
== END 2023-11-22 10:15 | disposition home or self-care (01) ==
LOC: EN 07:53 → AC 07:53
PROVIDERS: PCP Family Medicine; Referring Provider Surgery; Visit Provider Surgery
PROC: 0DJD8ZZ Inspection of Lower Intestinal Tract, Via Natural or Artificial Opening Endoscopic (ICD-10-PCS; CPT 45378; principal; 2023-11-22 08:55)
DX: Z12.11 Encounter for screening for malignant neoplasm of colon (principal); D64.9 Anemia, unspecified; E06.3 Autoimmune thyroiditis; K64.0 First degree hemorrhoids; Z79.890 Hormone replacement therapy; K64.4 Residual hemorrhoidal skin tags; Z80.0 Family history of malignant neoplasm of digestive organs; Z87.19 Personal history of other diseases of the digestive system
CPT/HCPCS: 45378; J7120; J2405

== ENCOUNTER → 2024-07-02 | Outpatient (CLI) | payer OTHER, SELFPAY ==
[2024-07-02 09:36] LABS: Absolute Lymphocyte Count 1.71 X10^3/uL (0.83-4.51); Absolute Neutrophil Count 2.4 X10^3/uL (2.0-7.7); Basophil# 0.05 X10^3/uL; Basophil% 1.1 % (0-1); Eosinophils% 2.1 % (0-5); Hematocrit 44.4 % (37-47); Hemoglobin 14.6 g/dL (12.0-15.0); Lymphocyte # 1.71 X10^3/ul (0.83-4.51); Lymphocyte % 36.5 % (19-41); Mean Corp Hgb Conc 32.9 g/dL (32-36); Mean Corpuscular Hgb 30.7 pg (27.0-32.0); Mean Corpuscular Volume 93.5 fL (81-99); Mean Platelet Vol. 10.8 fl (6.2-12.0); Monocyte# 0.46 X10^3/uL; Monocyte% 9.8 % (0-10); NRBC Flagged by Analyzer 0 % (0-5); Neutrophil # 2.35 X10^3/uL (2.7-7.7); Neutrophil % 50.3 % (47-70); Platelet Count 238 K/mm3 (150-450); RBC Distribution Width CV 11.8 % (11.6-14.6); RBC Distribution Width SD 40.7 fl (35.1-43.9); Red Blood Count 4.75 M/mm3 (4.2-5.4); White Blood Count 4.7 K/mm3 (4.4-11.0)
[2024-07-02 10:03] LABS: Vitamin D,25 Hydroxy 47.3 ng/mL
[2024-07-02 10:11] LABS: Ferritin 15 ng/mL (8-252); T4 Free Direct 1.16 ng/dL (0.76-1.46); Thyroid Stim Hormone (TSH) 2.55 uIU/mL (0.358-3.74)
== END | disposition home or self-care (01) ==
PROVIDERS: PCP Family Medicine; Referring Provider Internal Medicine Endocrinology, Diabetes & Metabolism; Visit Provider Internal Medicine Endocrinology, Diabetes & Metabolism
DX: E55.9 Vitamin D deficiency, unspecified (principal); E03.8 Other specified hypothyroidism; E06.3 Autoimmune thyroiditis; R53.81 Other malaise; R53.83 Other fatigue
CPT/HCPCS: 36415; 82306; 82728; 84439; 84443; 85025

== ENCOUNTER → 2024-07-04 | Outpatient (CLI) | payer OTHER, SELFPAY ==
--- NOTE | 2024-07-04 08:17 | BD_ITS ---
STUDY: DUAL ENERGY X-RAY ABSORPTIOMETRY / DXA REASON FOR EXAM: Female, 48 years old. Screening TECHNIQUE: Bone Mineral Density (BMD) measurements of lumbar spine and bilateral hips were obtained. COMPARISON: None. FINDINGS: Lumbar Spine (L1-L4): g/cm2 (0.921) / T-score (-1.1) / Z-score (-0.4) Findings are suggestive of osteopenia with a low fracture risk. Left Femur Total: g/cm2 (0.876) / T-score (-0.5) / Z-score (0.0) Left Femoral Neck: g/cm2 (0.710) / T-score (-1.2) / Z-score (-0.5) Right Femur Total: g/cm2 (0.916) / T-score (-0.2) / Z-score (0.3) Right Femoral Neck: g/cm2 (0.768) / T-score (-0.7) / Z-score (0.1) BD/Dexa Bone Density Study IMPRESSION: The patient is considered osteopenic as outlined below according to World Jamel Organization (WHO) criteria with a low fracture risk. Reference Information: The T-score is the number of standard deviations above or below the standard which is normal for young adults at their peak bone mineral density. The World Health Organization (WHO) interprets the T-scores as follows: Above -1 Normal bone density Between -1 and -2.5 Osteopenia Equal to / or below -2.5 Osteoporosis As a practical clinical guideline, osteopenia may be graded as follows: Mild -1 through -1.5 Moderate -1.6 through -2.0 Severe -2.1 through -2.4 The Z-score is the number of standard deviations above or below age-matched controls. A Z-score of less than -1.5 would be considered abnormal. References: 1. NIH Osteoporosis and Related Bone Diseases www osteo.org 2. International Society for Clinical Densitometry www iscd.org 3. National Osteoporosis Foundation www nof.org Electronically Signed: Rohan Bey MD at 9:37 EDT ,
== END | disposition home or self-care (01) ==
LOC: OPBD 08:17
PROVIDERS: PCP Family Medicine; Referring Provider Internal Medicine Endocrinology, Diabetes & Metabolism; Visit Provider Internal Medicine Endocrinology, Diabetes & Metabolism
DX: Z13.820 Encounter for screening for osteoporosis (principal)
CPT/HCPCS: 77080

== ENCOUNTER → 2025-04-23 | Outpatient (CLI) | payer OTHER, SELFPAY ==
[2025-04-28 08:08] LABS: Alternaria tenuis <0.10 kU/L (Class 0); Ash, White <0.10 kU/L (Class 0); Aspergillus fumigatus <0.10 kU/L (Class 0); Bermuda Grass 1.38 kU/L (Class II); Birch 0.13 kU/L (Class 0/I); Black Walnut 0.18 kU/L (Class 0/I); Cat Hair / Dander,Stand 0.61 kU/L (Class II); Cedar, Mountain <0.10 kU/L (Class 0); Cladosporium herbarum <0.10 kU/L (Class 0); Clam <0.10 kU/L (Class 0); Cockroach, American <0.10 kU/L (Class 0); Codfish <0.10 kU/L (Class 0); Corn <0.10 kU/L (Class 0); Cottonwood <0.10 kU/L (Class 0); D farinae Mite 1.37 kU/L (Class II); D pteronyssinus 1.31 kU/L (Class II); Dog Epithelia <0.10 kU/L (Class 0); Egg, White <0.10 kU/L (Class 0); Immunoglobulin E 63 IU/mL (6-495); Milk (Cow) 0.18 kU/L (Class 0/I); Mouse Urine <0.10 kU/L (Class 0); Mulberry, White <0.10 kU/L (Class 0); Oak, White <0.10 kU/L (Class 0); Peanut <0.10 kU/L (Class 0); Pecan 1.59 kU/L (Class III); Penicillium Notatum <0.10 kU/L (Class 0); Pigweed, Rough <0.10 kU/L (Class 0); Ragweed, Short/Common 0.14 kU/L (Class 0/I); Russian Thistle <0.10 kU/L (Class 0); SCALLOP <0.10 kU/L (Class 0); SESAME SEED <0.10 kU/L (Class 0); Sheep Sorrel <0.10 kU/L (Class 0); Shrimp <0.10 kU/L (Class 0); Soybean <0.10 kU/L (Class 0); Sycamore, American <0.10 kU/L (Class 0); Timothy Grass 6.02 kU/L (Class IV); Walnut, (Food) <0.10 kU/L (Class 0); Wheat <0.10 kU/L (Class 0)
== END | disposition home or self-care (01) ==
LOC: LAB 16:25
PROVIDERS: PCP Family Medicine
DX: T78.40XA Allergy, unspecified, initial encounter (principal)
CPT/HCPCS: 36415; 82785; 86003

== ENCOUNTER → 2025-05-06 | Outpatient (CLI) | payer OTHER, SELFPAY ==
[2025-05-09 08:09] LABS: Thyroid Stim Immunoglob <0.10 IU/L (0.00-0.55)
== END | disposition home or self-care (01) ==
LOC: LAB 12:48
PROVIDERS: PCP Family Medicine; Referring Provider Internal Medicine Endocrinology, Diabetes & Metabolism; Visit Provider Internal Medicine Endocrinology, Diabetes & Metabolism
DX: E03.8 Other specified hypothyroidism (principal); E06.3 Autoimmune thyroiditis; E05.90 Thyrotoxicosis, unspecified without thyrotoxic crisis or storm
CPT/HCPCS: 36415; 84439; 84443; 84445

== ENCOUNTER → 2025-06-09 | Outpatient (CLI) | payer OTHER, SELFPAY ==
--- NOTE | 2025-06-09 08:30 | BI_ITS ---
EXAM: SCRN MAMM (CAD)W/SRIRAM BILAT DATE: 06/09/2025 CLINICAL HISTORY: F, Age 49 y/o , SCREEN FOR BREAST CANCER No family history. TECHNIQUE: SCRN MAMM (CAD)W/SRIRAM BILAT COMPARISON: Prior exam(s) dated June 19, 2023.. FINDINGS: TISSUE DENSITY: The breasts are extremely dense, which lowers the sensitivity of mammography. Bilateral Breast Mammographic Findings: No significant masses, calcifications or other abnormalities are identified. No suspicious masses, areas of developing architectural distortion, or suspicious calcifications. There has been no significant interval change. BI/SCRN MAMM (CAD)W/SRIRAM BILAT IMPRESSION: Stable examination. OVERALL FINAL ASSESSMENT BI-RADS 1: NEGATIVE. RECOMMENDATION: Routine annual follow-up in 1 Year A letter with findings and recommendations will be mailed to the patient. Reading Location: [place] [id number]
[2025-06-11 16:09] LABS: HPV APTIMA, High Risk Negative (Negative)
== END | disposition home or self-care (01) ==
LOC: OPBI 08:20
PROVIDERS: PCP Family Medicine; Referring Provider Nurse Practitioner Women's Health; Visit Provider Nurse Practitioner Women's Health
DX: Z12.31 Encounter for screening mammogram for malignant neoplasm of breast (principal); Z12.4 Encounter for screening for malignant neoplasm of cervix
CPT/HCPCS: 77063; 77067; 87624; 88175; G0145

== ENCOUNTER → 2025-07-03 | Outpatient (CLI) | payer OTHER, SELFPAY ==
[2025-07-03 12:04] LABS: Hematocrit 44.4 % (37-47); Hemoglobin 14.6 g/dL (12.0-15.0); Immature Granulocytes Count 0.020 X10^3/uL (0.0-0.0); Mean Corp Hgb Conc 32.9 g/dL (32-36); Mean Corpuscular Volume 94.1 fL (81-99); Mean Platelet Vol. 11.0 fl (6.2-12.0); NRBC Flagged by Analyzer 0 % (0-5); Platelet Count 243 K/mm3 (150-450); RBC Distribution Width CV 11.8 % (11.6-14.6); RBC Distribution Width SD 40.9 fl (35.1-43.9); Red Blood Count 4.72 M/mm3 (4.2-5.4); White Blood Count 5.6 K/mm3 (4.4-11.0)
[2025-07-03 12:51] LABS: Ferritin 21 ng/mL (22-378); Vitamin B12 772 pg/mL (180-914)
== END | disposition home or self-care (01) ==
LOC: LAB 11:22
PROVIDERS: PCP Family Medicine; Referring Provider Internal Medicine Endocrinology, Diabetes & Metabolism; Visit Provider Internal Medicine Endocrinology, Diabetes & Metabolism
DX: E06.3 Autoimmune thyroiditis (principal); E03.8 Other specified hypothyroidism; E61.1 Iron deficiency
CPT/HCPCS: 36415; 82607; 82728; 85025

== ENCOUNTER → 2025-07-30 | Outpatient (CLI) | payer OTHER, SELFPAY ==
--- OUTSIDE RECORDS SUMMARY | 2025-07-30 06:53 | XMS RPT_ITS | CCD ---
Author Organization [facility] Care Team Providers Care Recordings Librarian Name Role Phone Hays GEOMETRICIAN, Lazara S Unavailable Dimitry Sr MD Primary Care Provider Unavailable Primary Care Provider UnavailDIMITRY Schroeder Primary Care Unavailable TINO ADAMS Attending Unavailable Dimitry Sr MD Primary Care Provider ChristmasJed Primary Care Provider UnavailDr. Dimitry Schroeder Primary Care Provider Dr. Dimitry Sr Referring Provider Ruperto GEOMETRICIAN, GEOMETRICIAN-C Lazara Attending Provider Dr. Eric Bonilla Attending Provider Dr. Dimitry Sr Primary Care Provider Dr. Dimitry Sr Referring Provider Ruperto GEOMETRICIAN, GEOMETRICIAN-C Lazara Attending Provider Dr. Eric Bonilla Attending Provider Dr. Dimitry Sr Referring Provider Ruperto GEOMETRICIAN, GEOMETRICIAN-C Lazara Attending Provider Dr. Eric Bonilla Attending Provider Dr. Dimitry Sr Referring Provider Dr. Eric Bonilla Attending Provider Dr. Dimitry Sr Primary Care Provider Kim Bonilla Attending Provider Unavailable Dr. Nilam Elliott Attending Provider Dr. Nilam Elliott Referring Provider Dr. Nilam Elliott Other Provider Dr. Eric Bonilla Other Provider Dr. Dimitry Sr MD Primary Care Provider Dorothy DYER, Chuck Attending Provider Dorothy PA, Chukc Referring Provider Dr. Eric Bonilla MD Attending Provider Dr. Eric Bonilla MD Referring Provider Ruperto GEOMETRICIAN-C, Lazara Attending Provider Ruperto GEOMETRICIAN-C, Lazara Referring Provider Dr. Dimitry Sr MD Referring Provider King AMISHA, Dr. Reyes Attending Provider Unavailable Chad, Eric Attending Unavailable Chad, Eric Referring Unavailable Sr, Dimitry Primary Care Unavailable Sr, Dimitry Primary Care Unavailable De La Cruz, Chuck Attending Unavailable De La Cruz, Chuck Referring Unavailable Chad, Eric Attending Unavailable Sr, Dimitry Primary Care Unavailable Chad, Eric Referring Unavailable Sr, Dimitry Primary Care Unavailable Chad, Eric Attending Unavailable Chad, Eric Referring Unavailable Sr, Dimitry Referring Unavailable Hays, Lazara Attending Unavailable Sr, Dimitry Primary Care Unavailable Sr, Dimitry Referring Unavailable Chad, Eric Attending Unavailable Sr, Dimitry Primary Care Unavailable Hays, Lazara Attending Unavailable Hays, Lazara Referring Unavailable Sr, Dimitry Primary Care Unavailable Allergies Allergy Classification Reported Allergen(s) Allergy Type Date of Onset Reaction(s) Facility (3 sources) Cephalexin Drug Allergy 06-17-2021 [facility] Work Phone: (11 sources) Doxycycline Drug Allergy 08-19-2022 [facility] (1 source) Doxycycline Drug Allergy 07-03-2025 [facility] Repository Medications Current Medications Medication Drug Class(es) Dates Sig (Normalized) Sig (Original) diphenhydrAMINE hydrochloride 25 mg oral capsule (2 sources) Histamine-1 Receptor Antagonist Start: 04-24-2021 End: 05-04-2021 take 2 capsules by mouth every six hours as needed diphenhydrAMINE (BENADRYL) 25 mg capsule Take 2 (two) capsules (50 mg total) by mouth every 6 (six) hours as needed for itching . 30 capsule 0 04/24/2021 05/04/2021 Active Start: 04-24-2021 End: 04-24-2021 diphenhydrAMINE (BENADRYL) i njection 50 mg estradiol 0.1 mg/ml vaginal cream (20 sources) Estrogen Start: 06-09-2025 Estradiol 0.01 % (0.1 mg/gram) cream Active 0 VAGINAL .COMPLEX 42.5 2 June 09, 2025 9:22am small amount vaginally three times a week Start: 08-05-2024 End: 06-09-2025 Estradiol 0.01 % (0.1 mg/gra m) cream Discontinued 0 VAGINAL .COMPLEX 42.5 2 August 05, 2024 9:04am June 09, 2025 9:23am small amount vaginally twice a week Start: 06-19-2023 End: 08-05-2024 Estradiol 0.01 % (0.1 mg/gra m) cream Discontinued 1 NMA VAGINAL SUT November 17, 2023 1:00am August 05, 2024 9:04am small amount as directed vaginal every other day X 4 weeks then twice a week; Start: 06-19-2023 End: 11-17-2023 Estradiol Active 1 APPFUL [facility] November 17, 2023 12:00am small amount as directed vaginal every other day X 4 weeks then twice a week; famotidine 20 mg oral tablet (4 sources) Histamine-2 Receptor Antagonist Start: 04-24-2021 End: 05-24-2021 take 1 tablet by mouth twice daily faMOTIdine 20 MG tablet Take 20 mg by mouth Twice daily. 0 04/24/2021 05/24/2021 Active ferrous sulfate 325 mg oral tablet (20 sources) Start: 07-04-2022 take 1 tablet by mouth every other day Ferrous Sulfate 325 mg (65 mg iron) tablet Active 65 mg PO .QOD July 04, 2022 12:54pm Start: 07-04-2022 take 65 mg by mouth once daily Ferrous Sulfate Active 65 MG PO DAILY July 04, 2022 12:54pm Start: 06-20-2017 take 1 tablet by prachi once daily KP FERROUS SULFATE 325 (65 Fe) MG TABS One tablet by mouth daily FERROUS SULFATE [id number] Lazara Hickey GEOMETRICIAN Start: 11-10-2014 End: 07-04-2022 Ferrous Sulfate 325 MG table t Discontinued 65 mg PO TWICE A DAY November 10, 2014 1:00am July 04, 2022 12:54pm Start: 11-10-2014 End: 07-04-2022 take 65 mg by mouth twice daily Ferrous Sulfate Discon tinued 65 MG PO TWICE A DAY November 10, 2014 12:00am July 04, 2022 11:54am FERROUS SULFATE, DRIED (IRON, DRIED, ORAL) Take by mouth. 0 Active take 1 tablet by prachi th once daily Ferrous Sulfate (Iron) 325 (65 Fe) MG tablet Take 65 mg by mouth daily. 0 Active take 1 tablet by prachi th twice daily IRON TABS One tablet by mouth twice daily FERROUS SULFATE TABS [id number] Russell Huffman Uriel End: 06-20-2017 take 1 tablet by mouth twice daily IRON TABS One tablet by mouth twice daily FERROUS SULFATE TABS [id number] Lazara Hickey GEOMETRICIAN Comment on above: Take by mouth. predniSONE 20 mg oral tablet (5 sources) Start: 2 End: 2 take 3 tablets by mouth once daily, then take 2 tablets by mouth once daily, then take 1 tablet by mouth once daily, then take 0.5 tablet by mouth once daily predniSONE (DELTASONE) 20 mg tablet Indications: Dermal hypersensitivity reaction , Rash and other nonspecific skin eruption Take 3 tablets by mouth once daily for 5 days, THEN 2 tablets once daily for 5 days, THEN 1 tablet once daily for 5 days, THEN 0.5 tablets once daily for 5 days. 33 tablet 0 05/04/2022 05/24/2022 Active Start: 04-24-2021 End: 04-29-2021 take 1 tablet by mouth twice daily predniSONE 20 MG tablet Take 20 mg by mouth Twice daily. 0 04/24/2021 Active End: 04-24-2021 take 1 tablet by mouth once daily predniSONE (DELTASONE) 20 MG tablet Take 20 mg by mouth daily . 0 04/24/2021 Discontinued Comment on above: Take 3 tablets by mo [facility] once daily for 5 days, THEN 2 tablets once daily for 5 days, THEN 1 tablet once daily for 5 days, THEN 0.5 tablets once daily for 5 days. sulfamethoxazole 40 mg/ml / trimethoprim 8 mg/ml oral suspension (1 source) Dihydrofolate Reductase Inhibitor Antibacterial, Sulfonamide Antimicrobial sulfamethoxazole-tri met hoprim (BACTRIM,SEPTRA) 200-40 mg/5 mL suspension Take by mouth 2 (two) times a day . 0 Active triamcinolone acetonide 1 mg/ml topical cream (15 sources) Corticosteroid Start: 05-12-2021 triamcinolone 0.1 % Cream cream Apply area of lesion bid and prn for 10 days. 45 g 0 05/12/2021 Active Start: 04-11-2021 End: 06-17-2021 Triamcinolone Acetonide 0.1 % cream Discontinued NMA TOPICAL April 11, 2021 12:00am June 17, 2021 3:17pm Start: 04-11-2021 End: 06-17-2021 Triamcinolone Acetonide Disc ontinued APPLIC TOPICAL April 10, 2021 11:00pm June 17, 2021 2:17pm Completed/Discontinued Medications Medication Drug Class(es) Dates Sig (Normalized) Sig (Original) acetaminophen 325 mg / oxyCODONE hydrochloride 5 mg oral tablet (14 sources) Opioid Agonist Start: 11-17-2014 End: 12-02-2017 Oxycodone-Acetamino phen 1 TABLET tablet Discontinued 1 - 2 {tbl} PO EVERY 6 HOURS NEEDED as needed for Pain November 17, 2014 1:00am December 02, 2017 11:31am Start: 11-17-2014 End: 12-02-2017 take 1 tablet by mouth every six hours as needed Oxycodone-Acetaminophen Discontinued 1 - 2 TABLET PO EVERY 6 HOURS NEEDED November 17, 2014 12:00am December 02, 2017 10:31am Desogestrel-Ethinyl Estradiol (20 sources) Progestin, Estrogen Start: 07-06-2020 End: 06-17-2021 take 0.15 tablet by mouth once daily Desogestrel-Ethinyl Estradiol (Enskyce) 0.15-0.03 mg tablet Discontinued 1 {tbl} PO daily 84 4 July 06, 2020 9:00am June 17, 2021 3:16pm Start: 07-06-2020 End: 06-17-2021 take 0.15 tablet by mouth once daily Desogestrel-Ethinyl Estradiol (Enskyce) 0.15-0.03 mg tablet Discontinued 1 {tbl} PO daily 84 July 06, 2020 9:00am June 17, 2021 3:16pm Start: 07-06-2020 End: 06-17-2021 Desogestrel-Ethinyl Estradio l (Enskyce) 0.15-0.03 mg tablet Discontinued 1 TABLET PO daily 84 July 06, 2020 8:00am June 17, 2021 2:16pm Start: 07-06-2020 End: 06-17-2021 Desogestrel-Ethinyl Estradio l (Enskyce) 0.15-0.03 mg tablet Discontinued 1 TABLET PO daily July 06, 2020 9:00am June 17, 2021 3:16pm Start: 07-03-2019 End: 07-06-2020 take 0.15 tablet by mouth once daily Desogestrel-Ethinyl Estradiol (Enskyce) 0.15-0.03 mg tablet Discontinued 1 {tbl} PO daily 84 July 03, 2019 9:04am July 06, 2020 9:01am Start: 07-03-2019 End: 07-06-2020 take 0.15 tablet by mouth once daily Desogestrel-Ethinyl Estradiol (Enskyce) 0.15-0.03 mg tablet Discontinued 1 {tbl} PO daily July 03, 2019 9:04am July 06, 2020 9:01am Start: 07-03-2019 End: 07-06-2020 Desogestrel-Ethinyl Estradio l (Enskyce) 0.15-0.03 mg tablet Discontinued 1 TABLET PO daily 84 July 03, 2019 8:04am July 06, 2020 8:01am Start: 07-03-2019 End: 07-06-2020 Desogestrel-Ethinyl Estradio l (Enskyce) 0.15-0.03 mg tablet Discontinued 1 TABLET PO daily July 03, 2019 9:04am July 06, 2020 9:01am Start: 07-12-2018 End: 07-03-2019 take 0.15 tablet by mouth once daily Desogestrel-Ethinyl Estradiol (Enskyce) 0.15-0.03 mg tablet Discontinued 1 {tbl} PO daily 84 July 12, 2018 8:23am July 03, 2019 9:04am Start: 07-12-2018 End: 07-03-2019 take 0.15 tablet by mouth once daily Desogestrel-Ethinyl Estradiol (Enskyce) 0.15-0.03 mg tablet Discontinued 1 {tbl} PO daily July 12, 2018 8:23am July 03, 2019 9:04am Start: 07-12-2018 End: 07-03-2019 Desogestrel-Ethinyl Estradio l (Enskyce) 0.15-0.03 mg tablet Discontinued 1 TABLET PO daily July 12, 2018 7:23am July 03, 2019 8:04am Start: 07-12-2018 End: 07-03-2019 Desogestrel-Ethinyl Estradio l (Enskyce) 0.15-0.03 mg tablet Discontinued 1 TABLET PO daily July 12, 2018 8:23am July 03, 2019 9:04am Start: 06-25-2018 End: 07-12-2018 take 0.15 tablet by mouth once daily Desogestrel-Ethinyl Estradiol (Enskyce) 0.15-0.03 mg tablet Discontinued 1 {tbl} PO daily 84 June 25, 2018 11:45am July 12, 2018 8:23am Start: 06-25-2018 End: 07-12-2018 take 0.15 tablet by mouth once daily Desogestrel-Ethinyl Estradiol (Enskyce) 0.15-0.03 mg tablet Discontinued 1 {tbl} PO daily June 25, 2018 11:45am July 12, 2018 8:23am Start: 06-25-2018 End: 07-12-2018 Desogestrel-Ethinyl Estradio l (Enskyce) 0.15-0.03 mg tablet Discontinued 1 TABLET PO daily June 25, 2018 10:45am July 12, 2018 7:23am Start: 06-25-2018 End: 07-12-2018 Desogestrel-Ethinyl Estradio l (Enskyce) 0.15-0.03 mg tablet Discontinued 1 TABLET PO daily June 25, 2018 11:45am July 12, 2018 8:23am Start: 01-29-2018 End: 06-25-2018 take 0.15 tablet by mouth once daily Desogestrel-Ethinyl Estradiol (Enskyce) 0.15-0.03 mg tablet Discontinued 1 {tbl} PO daily 84 January 29, 2018 10:36am June 25, 2018 11:46am Start: 01-29-2018 End: 06-25-2018 take 0.15 tablet by mouth once daily Desogestrel-Ethinyl Estradiol (Enskyce) 0.15-0.03 mg tablet Discontinued 1 {tbl} PO daily January 29, 2018 10:36am June 25, 2018 11:46am Start: 01-29-2018 End: 06-25-2018 Desogestrel-Ethinyl Estradio l (Enskyce) 0.15-0.03 mg tablet Discontinued 1 TABLET PO daily January 29, 2018 9:36am June 25, 2018 10:46am Start: 01-29-2018 End: 06-25-2018 Desogestrel-Ethinyl Estradio l (Enskyce) 0.15-0.03 mg tablet Discontinued 1 TABLET PO daily January 29, 2018 10:36am June 25, 2018 11:46am Start: 01-29-2018 End: 01-29-2018 Desogestrel-Ethinyl Estradio l (Enskyce) 0.15-0.03 mg tablet Discontinued 1 TABLET PO daily January 29, 2018 10:35am January 29, 2018 10:37am Start: 01-29-2018 End: 01-29-2018 take 0.15 tablet by mouth once daily Desogestrel-Ethinyl Estradiol (Enskyce) 0.15-0.03 mg tablet Discontinued 1 {tbl} PO daily 24 12January 29, 2018 1:00am January 29, 2018 10:37am Start: 01-29-2018 End: 01-29-2018 take 0.15 tablet by mouth once daily Desogestrel-Ethinyl Estradiol (Enskyce) 0.15-0.03 mg tablet Discontinued 1 {tbl} PO daily January 29, 2018 1:00am January 29, 2018 10:37am Start: 01-29-2018 End: 01-29-2018 Desogestrel-Ethinyl Estradio l (Enskyce) 0.15-0.03 mg tablet Discontinued 1 TABLET PO daily January 29, 2018 12:00am January 29, 2018 9:37am Start: 01-29-2018 End: 01-29-2018 Desogestrel-Ethinyl Estradio l (Enskyce) 0.15-0.03 mg tablet Discontinued 1 TABLET PO daily January 29, 2018 1:00am January 29, 2018 10:37am Start: 06-20-2017 take 1 tablet by prachi th once daily ENSKYCE 0.15-30 MG-MCG TABS One tablet by mouth daily DESOGESTREL-ETHINYL ESTRADIOL [id number] Lazara Hickey NP Start: 06-21-2016 take 1 tablet by prachi th once daily, then take 0.15 tablet by mouth once Desogestrel-Ethinyl Estradiol (APRI) 0.15-0.03 mg per tablet Indications: Irregular menstrual cycle , General counseling for prescription of oral contraceptives Take 1 tablet by mouth once daily. 3 Package 4 06/21/2016 Active Comment on above: Take 1 tablet by prachi th once daily. doxycycline monohydrate 100 mg oral capsule (14 sources) Tetracycline-clas s Drug Start: 1 End: 1 take 1 capsule by mouth twice daily Doxycycline Monohydrate (Mondoxyne Nl) 100 mg capsule Discontinued 100 mg PO TWICE A DAY April 11, 2021 12:00am June 17, 2021 3:17pm Ethinyl Estradiol / Ferrous fumarate / Norethindrone (20 sources) Estrogen Start: 4 End: 8 take 1 tablet by mouth once daily Microgestin Fe 1-20 Tablet Discontinued 1 TABLET PO DAILY November 10, 2014 4:21pm January 29, 2018 10:35am Start: 11-10-2014 End: 01-29-2018 Microgestin Fe 1-20 Tablet Discontinued 1 {tbl} PO DAILY November 10, 2014 1:00am January 29, 2018 10:35am Start: 11-10-2014 End: 01-29-2018 take 1 tablet by mouth once daily Microgestin Fe 1-20 Tablet Discontinued 1 TABLET PO DAILY November 10, 2014 12:00am January 29, 2018 9:35am Start: 11-10-2014 End: 01-29-2018 take 1 tablet by mouth once daily Microgestin Fe 1-20 Tablet Discontinued 1 TABLET PO DAILY November 10, 2014 1:00am January 29, 2018 10:35am take 1 tablet by prachi th once daily, then take 1.5-30 tablets by mouth MICROGESTIN FE 1.5/30 1.5-30 MG-MCG TABS One tablet by mouth daily NORETHIN THELMA-ETH ESTRAD-FE [id number] Russell Trevino End: 06-20-2017 take 1 tablet by mouth once daily, then take 1.5-30 tablets by mouth MICROGESTIN FE 1.5/30 1.5-30 MG-MCG TABS One tablet by mouth daily NORETHIN THELMA-ETH ESTRAD-FE [id number] Lazara Hickey GEOMETRICIAN fluconazole 150 mg oral tablet (11 sources) Azole Antifungal Start: 07-04-2022 End: 08-19-2022 Fluconazole 150 mg tablet Discontinued 150 mg PO .COMPLEX 2 0 July 04, 2022 12:00am August 19, 2022 9:56am 150 mg PO take one po now and repeat in 3 days levothyroxine sodium 0.088 mg oral tablet (20 sources) l-Thyroxine Start: 11-17-2023 End: 01-11-2024 Levothyroxine 88 mcg capsule Discontinued 132 ug PO CHENEY November 17, 2023 1:00am January 11, 2024 8:28am Start: 11-17-2023 Levothyroxine Active 132 MCG PO CHENEY November 17, 2023 12:00am Start: 04-05-2021 End: 07-03-2025 take 1 tablet by mouth once daily Levothyroxine (Synthroid) 88 mcg tablet Discontinued 88 ug PO .daily, 1 1/2 on July 02, 2024 12:43pm July 03, 2025 9:06am Start: 06-20-2017 End: 06-20-2017 take 1 tablet by mouth once daily SYNTHROID 50 MCG TABS One tablet by mouth daily LEVOTHYROXINE SODIUM [id number] Lazara S Ruperto GEOMETRICIAN LEVOTHYROXINE SO DIUM (SYNTHROID ORAL) Take by mouth. 0 Active Comment on above: Take by mouth. methylPREDNISolone 125 mg injection (1 source) Corticosteroid Start: 04-24-2021 End: 04-24-2021 methylPREDNISolone sod suc(PF) (SOLU-medrol) Injection 125 mg Problems Active Problems Problem Classification Problem Date Documented Date Episodic/Chronic Menopausal disorders (14 sources) Atrophic vaginitis; Translations: [Postmenopausal atrophic vaginitis] 06-19-2023 Chronic Comment on above: estradiol cream estradiol cream 3 ni ghts a week Menstrual disorders (3 sources) Amenorrhea; Translations: [Amenorrhea, unspecified] Chronic Mycoses (2 sources) Candidiasis of vulva and vagina; Translations: [Candidiasis of vulva and vagina] Episodic Nutritional deficiencies (5 sources) Iron deficiency; Translations: [Iron deficiency] Onset: 07-03-2025 07-03-2025 Episodic Other connective tissue disease (14 sources) Pain in lower limb; Translations: [Pain in unspecified lower leg] 06-19-2023 Episodic Other connective tissue disease (4 sources) Pain in limb; Translations: [Pain in unspecified limb] 07-03-2025 Episodic Other connective tissue disease (2 sources) Pain in unspecified limb; Translations: [Pain in unspecified limb] Onset: 07-03-2025 Episodic Other inflammatory condition of skin (14 sources) Erythroderma; Translations: [Erythematous condition, unspecified] 06-19-2023 Episodic Other nervous system disorders (4 sources) Paresthesia of lower extremity; Translations: [Paresthesia of skin] 07-03-2025 Episodic Comment on above: Left leg only Other nervous system disorders (2 sources) Paresthesia of skin; Translations: [Paresthesia of skin] Onset: 07-03-2025 Episodic Other screening for suspected conditions (not mental disorders or infectious disease) (10 sources) Patient encounter status; Translations: [Encounter for screening for malignant neoplasm of colon] Onset: 06-09-2025 09-20-2023 Episodic Other skin disorders (3 sources) Eruption; Translations: [Rash and other nonspecific skin eruption] Episodic Skin and subcutaneous tissue infections (14 sources) Cellulitis and abscess of lower limb; Translations: [Cellulitis of unspecified part of limb] 06-19-2023 Episodic Thyroid disorders (20 sources) Hypothyroidism; Translations: [Hypothyroidism, unspecified] Onset: 06-17-2014 06-17-2014 Chronic Unclassified (4 sources) Medication monitoring; Translations: [Encounter for surveillance of contraceptive pills] Onset: 06-20-2017 06-20-2017 Past or Other Problems Problem Classification Problem Date Documented Da te Episodic/Chronic Abdominal hernia (4 sources) Umbilical hernia; Translations: [Umbilical hernia without obstruction or gangrene] 08-05-2014 Episodic Allergic reactions (4 sources) Inflammatory dermatosis; Translations: [Dermatitis, unspecified] Onset: 04-28-2025 Episodic Unclassified (11 sources) hx of child 06-25-2022 Results Test Name Value Interpretation Reference Range Facility Absolute lymphocyte countOrd ered By: Eric Bonilla on 07-03-2025 Lymphocytes Auto (Unsp spec) [#/Vol] 1.59 10*3/uL 0.83-4.51 [facility] Absolute neutrophil countOrd ered By: Eric Chad on 07-03-2025 Neutrophils (Bld) [#/Vol] 3.2 10*3/uL 2.0-7.7 [facility] Automated lymphocyte count a s percentage of total leukocytesOrdered By: Eric Bonilla on 07-03-2025 Lymphocytes/100 WBC Auto (Unsp spec) 28.4 % 19-41 [facility] Basophil percentageOrdered B y: Ericmiguel Bonilla on 07-03-2025 Basophils/100 WBC (Bld) 1.4 % High 0-1 [facility] CBC W/Diff, Automatedon Absolute Lymph 1.59 X10 3/uL Normal 0.83-4.51 [facility] Comment on above: Performed By: #### L [id number], [id number], L100.0100 #### [facility] [address] [place], [address] Absolute Neut 3.2 X10 3/uL Normal 2.0-7.7 [facility] Comment on above: Performed By: #### L [id number], [id number], L100.0100 #### [facility] [address] [place], [address] Basophils/100 WBC (Bld) 1.4 % High 0-1 [facility] Comment on above: Performed By: #### L [id number], [id number], L100.0100 #### [facility] [address] [place], [address] Eosinophils/100 WBC (Bld) 2.1 % Normal 0-5 [facility] Comment on above: Performed By: #### L [id number], [id number], L100.0100 #### [facility] [address] [place], [address] Erythrocyte distribution width (RBC) [Ratio] 11.8 % Normal 11.6-14.6 [facility] Comment on above: Performed By: #### L [id number], [id number], L100.0100 #### [facility] [address] [place], [address] Hematocrit (Bld) [Volume fraction] 44.4 % Normal 37-47 [facility] Comment on above: Performed By: #### L [id number], [id number], L100.0100 #### [facility] [address] [place], [address] Hemoglobin (Bld) [Mass/Vol] 14.6 g/dL Normal 12.0-15.0 [facility] Comment on above: Performed By: #### L [id number], [id number], L100.0100 #### [facility] [address] [place], [address] IG% 0.400 Normal 0.0-0.9 [facility] Comment on above: Result Comment: IG% - Immature Granulocytes (promyelocytes, myelocytes and metamyelocytes) > 1% indicates that a LEFT SHIFT is Present. Performed By: #### L [id number], [id number], L100.0100 #### [facility] [address] [place], [address] Lymphocytes/100 WBC (Bld) 28.4 % Normal 19-41 [facility] Comment on above: Performed By: #### L [id number], [id number], L100.0100 #### [facility] [address] [place], [address] MCH (RBC) [Entitic mass] 30.9 pg Normal 27.0-32.0 [facility] Comment on above: Performed By: #### L [id number], [id number], L100.0100 #### [facility] [address] [place], [address] MCHC (RBC) [Mass/Vol] 32.9 g/dL Normal 32-36 [facility] Comment on above: Performed By: #### L [id number], [id number], L100.0100 #### [facility] [address] [place], [address] MCV (RBC) [Entitic vol] 94.1 fL Normal 81-99 [facility] Comment on above: Performed By: #### L [id number], [id number], L100.0100 #### [facility] [address] [place], [address] Monocytes/100 WBC (Bld) 10.6 % High 0-10 [facility] Comment on above: Performed By: #### L [id number], [id number], L100.0100 #### [facility] [address] [place], [address] Neutrophils/100 WBC (Bld) 57.1 % Normal 47-70 [facility] Comment on above: Performed By: #### L [id number], [id number], L100.0100 #### [facility] [address] [place], [address] Nucleated RBC (Bld) [#/Vol] 0 10*3/uL Normal 0-5 [facility] Comment on above: Performed By: #### L [id number], [id number], L100.0100 #### [facility] [address] [place], [address] Platelet mean volume (Bld) [Entitic vol] 11.0 fL Normal 6.2-12.0 [facility] Comment on above: Performed By: #### L [id number], [id number], L100.0100 #### [facility] [address] [place], [address] Platelets (Bld) [#/Vol] 243 10*3/uL Normal 150-450 [facility] Comment on above: Performed By: #### L [id number], [id number], L100.0100 #### [facility] [address] [place], [address] RBC (Bld) [#/Vol] 4.72 10*6/uL Normal 4.2-5.4 [facility] Comment on above: Performed By: #### L [id number], [id number], L100.0100 #### [facility] [address] [place], [address] RDW SD 40.9 fl Normal 35.1-43.9 [facility] Comment on above: Performed By: #### L [id number], [id number], L100.0100 #### [facility] [address] [place], [address] WBC (Bld) [#/Vol] 5.6 10*3/uL Normal 4.4-11.0 [facility] Comment on above: Performed By: #### L [id number], [id number], L100.0100 #### [facility] [address] [place], [address] Endocrinology Visit Reporton 07-03-2025 Endocrinology Visit Report [facility] [address] [place] [address] OFFICE VISIT Date of Service: 07/03/25 MR#: [id number] Acct: [id number] Name: MARY SAGE Rep #: [id number] : 1975 Provider: Piotr Cummins Age/Sex: 49/F Location: [facility] [place] Status: Signed Intake Vital Signs 07/02/24 08:24 06/09/25 09:08 07/03/25 08:54 Height 5 ft 8 in 5 ft 8 in 5 ft 8 in Weight: 144 lb 8 oz BMI 21.9 BP 109/60 Blood Pressure Location Rt brachial Position Sitting Pulse 67 Pulse Source Monitor Pulse Oximetry (%) 99 Oxygen Delivery Method room air Intake Visit Reasons: 1 Y FU Chief Complaint: Annual thyroid Is patient in pain?: Yes Allergies doxycycline Allergy (Intermediate, Verified 07/03/25 08:59) Rash Medications ???Medication ???Instructions ???Recorded ???Confirmed ???Type ferrous sulfate 325 mg (65 mg 65 mg PO .QOD 07/04/22 07/03/25 Hi story iron) tablet estradiol 0.01% (0.1 mg/gram) See Rx Instructions vaginal 07/03/25 Rx vaginal cream .COMPLEX #42.5 grams levothyroxine 88 mcg tablet 88 mcg PO .daily, 11/28 on 07/03/25 Rx (Synthroid) #96 tabs PFSH Medical History Iron deficiency Paresthesia of bilateral legs Paresthesia and pain of right extremity Pretibial myxedema Post-menopausal Wears contact lenses History of ulceration Non-smoker Family hx of colon cancer 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 Thyroid disease Anemia Surgical History History of umbilical hernia repair Family History Grandfather Colon cancer Other Anemia Autoimmune disorder Social History Smoking Status: Never smoker alcohol intake: current alcohol intake frequency: holidays/special occasions only details: social substance use type: does not use caffeine: Yes what type of physical activity do you participate in: walking and additional details: treadmill frequency: 5-6 times per week seatbelt use: always do you feel safe at home: Yes additional social history: [facility] [place] [employer] 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 She has autoimmune thyroid failure and is taking levothyroxine. TSH is normal from April,. 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 She reports that her right arm from elbow out and left leg from knee down are numb and tingly. Don't get better with activity or change in postition. She has FMH of multiple sclerosis. No bladder control issues, no balance issues. No visual changes. ROS Const Constitutional: No fatigue, weight change or change in appetite Eyes Eyes: No change in vision ENT ENT: No dizziness/vertigo or difficulty swallowing Cardio Cardiology: No chest pain at rest, chest pain with exertion, shortness of breath or palpitations Musc Musculoskeletal: Positive for numbness and tingling; No abnormal gait or joint pain Neuro Neurology: Positive for numbness and tingling; No abnormal gait or memory loss Psych Psychiatric: No change in appetite, No memory loss and No Thoughts of harming yourself/Others Resp Respiratory: No cough, chest congestion or shortness of breath Gastro GI: No abdominal pain, constipation, diarrhea or difficulty swallowing Genitourinary-Female: No burning urination Skin Skin: No itchy eyes or wounds Endo Endocrine: No fatigue or weight change Aller/Imm Allergy/Immunologic: No itchy eyes Exam Const General: cooperative, healthy appearing, comfortable, no acute distress, well developed and not cushingoid Nutritional Appearance: well nourished Orientation: alert, awake and oriented x3 HENMT Head: normal to inspection Ears: hearing grossly normal bilaterally Nose: external nose normal Mouth: oral mucosae normal Eyes General: appearance normal, both eyes and all related structures Alignment and Position: alignment normal Periorbital: periorbital findings normal Eyelids: eyelids normal Conjunctivae: conjunctivae normal Neck Neck: normal visual inspection Neck mass: No Thyroid: thyroid normal Lymphatic: no lymphadenopathy noted Chest Chest palpation inspection: normal inspection of the chest Resp Effort Inspection: normal respiratory effort, able to speak in complete sentences, symmetric chest movement, no audible wheezes and no cough Auscultation: Bilateral: Clear to Auscultation Cardio Rate: regular rate Rhythm: regular rhythm Pulses: po (more content not included)... Normal [facility] Eosinophil percentageOrdered By: Eric Bonilla on 07-03-2025 Eosinophils/100 WBC (Bld) 2.1 % 0-5 [facility] Erythrocyte distribution wid th ratioOrdered By: Eric Bonilla on 07-03-2025 Erythrocyte distribution width (RBC) [Ratio] 11.8 % 11.6-14.6 [facility] Erythrocyte distribution wid th standard deviationOrdered By: Eric Bonilla on 07-03-2025 Erythrocyte distribution width (RBC) [Ratio] 40.9 fl 35.1-43.9 [facility] Ferritinon 07-03-2025 Ferritin [Mass/Vol] 21 ng/mL Low 22-378 [facility] Comment on above: Performed By: #### L 5500.0410, L5500.0700 #### [facility] [address] [place], [address] Hematocrit Auto (Bld) [Volum e fraction]Ordered By: Eric Bonilla on 07-03-2025 Hematocrit (Bld) [Volume fraction] 44.4 % 37-47 [facility] Hemoglobin measurementOrdere d By: Eric Bonilla on 07-03-2025 Hemoglobin (Bld) [Mass/Vol] 14.6 g/dL 12.0-15.0 [facility] Immature granulocytes/100 WB C Auto (Bld)Ordered By: Eric Bonilla on 07-03-2025 Immature granulocytes/100 WBC (Bld) 0.400 % 0.0-0.9 [facility] Comment on above: IG% - Immature Granu locytes (promyelocytes, myelocytes and metamyelocytes) > 1% indicates that a LEFT SHIFT is Present. MCV (mean corpuscular volume ) determinationOrdered By: Eric Bonilla on 07-03-2025 MCV (RBC) [Entitic vol] 94.1 fL 81-99 [facility] Mean corpuscular hemoglobin (MCH) determinationOrdered By: Eric Bonilla on 07-03-2025 MCH (RBC) [Entitic mass] 30.9 pg 27.0-32.0 [facility] Mean corpuscular hemoglobin concentration (MCHC) determinationOrdered By: Eric Bonilla on 07-03-2025 MCHC (RBC) [Mass/Vol] 32.9 g/dL 32-36 [facility] Mean platelet volume determi nationOrdered By: Eric Bonilla on 07-03-2025 Platelet mean volume (Bld) [Entitic vol] 11.0 fL 6.2-12.0 [facility] Monocyte percentageOrdered B y: Eric Bonilla on 07-03-2025 Monocytes/100 WBC (Bld) 10.6 % High 0-10 [facility] Neutrophil percentageOrdered By: Eric Bonilla on 07-03-2025 Neutrophils/100 WBC (Bld) 57.1 % 47-70 [facility] Nucleated red blood cell per centageOrdered By: Eric Bonilla on 07-03-2025 Nucleated RBC/100 WBC (Bld) [Ratio] 0 % 0-5 [facility] Platelet countOrdered By: Mark Bonilla on 07-03-2025 Platelets (Bld) [#/Vol] 243 10*3/uL 150-450 [facility] RBC Auto (Bld) [#/Vol]Ordere d By: Eric Bonilla on 07-03-2025 RBC (Bld) [#/Vol] 4.72 10*6/uL 4.2-5.4 [facility] Serum or plasma ferritin jack surement (mass/volume)Ordered By: Eric Bonilla on 07-03-2025 Ferritin [Mass/Vol] 21 ng/mL Low 22-378 [facility] Vitamin B12on 07-03-2025 Cobalamin (Vitamin B12) [Mass/Vol] 772 pg/mL Normal 180-914 [facility] Comment on above: Performed By: #### L 5500.0410, L5500.0700 #### [facility] [address] [place], [place], [address] Vitamin B12 ser/plasOrdered By: Eric Bonilla on 07-03-2025 Cobalamin (Vitamin B12) [Mass/Vol] 772 pg/mL 180-914 [facility] White blood cell (WBC) count Ordered By: Eric Bonilla on 07-03-2025 WBC (Bld) [#/Vol] 5.6 10*3/uL 4.4-11.0 [facility] PAP IG HPV APTIMA 16/18,45on 06-11-2025 ADEQ Comment Normal . [facility] Comment on above: Order Comment: Speci men Comment: [id number] Specimen Comment: No. of containers..01 ThinPrep Vial Result Comment: Sati sfactory for evaluation. Endocervical and/or squamous metaplastic cells (endocervical component) are present. Performed By: #### L 7400.0280 #### [facility] [address] [place], [place], [id number] COMM . Normal . [facility] Comment on above: Order Comment: Speci men Comment: [id number] Specimen Comment: No. of containers..01 ThinPrep Vial Performed By: #### L 7400.0280 #### [facility] [address] [place], [place], [id number] COMMENT Comment Normal . [facility] Comment on above: Order Comment: Speci men Comment: [id number] Specimen Comment: No. of containers..01 ThinPrep Vial Result Comment: This liquid based ThinPrep(R) pap test was screened with the use of an image guided system. Performed By: #### L 7400.0280 #### [facility] [address] [place], [address] DIAG Comment Normal . [facility] Comment on above: Order Comment: Speci men Comment: [id number] Specimen Comment: No. of containers..01 ThinPrep Vial Result Comment: NEGA TIVE FOR INTRAEPITHELIAL LESION OR MALIGNANCY. CELLULAR CHANGES ASSOCIATED WITH ATROPHY ARE PRESENT. Performed By: #### L 7400.0280 #### [facility] [address] [place], [place], [address] HPV APTIMA, HR Negative Normal Negative [facility] Comment on above: Order Comment: Speci men Comment: [id number] Specimen Comment: No. of containers..01 ThinPrep Vial Result Comment: This nucleic acid amplification test detects fourteen high- risk HPV types (16,18,31,33,35,39,45,51,52,56,58,59,66,68) without differentiation. Performed By: #### L 7400.0280 #### [facility] [address] [place], [place], [address] HPV Tina Rfx Comment Normal . [facility] Comment on above: Order Comment: Speci men Comment: [id number] Specimen Comment: No. of containers..01 ThinPrep Vial Result Comment: Crit erceline not met, HPV Genotype not performed. Performed at: - [address] [id number] Measurement Supervisor: Odalys Caceres MD, Phone: [phone] Performed at: = - [facility] [address] [id number] Measurement Supervisor: Odalys Caceres MD, Phone: [phone] Performed By: #### L 7400.0280 #### [facility] [address] [place], [place], [address] PAPSMR Comment Normal . [facility] Comment on above: Order Comment: Speci men Comment: [id number] Specimen Comment: No. of containers..01 ThinPrep Vial Result Comment: The Pap smear is a screening test designed to aid in the detection of premalignant and malignant conditions of the uterine cervix. It is not a diagnostic procedure and should not be used as the sole means of detecting cervical cancer. Both false-positive and false-negative reports do occur. Performed By: #### L 7400.0280 #### [facility] [address] [place], [address] PERFORM Comment Normal . [facility] Comment on above: Order Comment: Speci men Comment: [id number] Specimen Comment: No. of containers..01 ThinPrep Vial Result Comment: Ladonna Dunaway, Vocal Music Teacher (ASCP) Performed By: #### L 7400.0280 #### [facility] [address] [place], [address] Breast imaging reportOrdered By: Rohan Bey on 06-09-2025 Study report [facility] Services [address] [place], [place] [address] SCRN MAMM (CAD)W/SRIRAM BILAT MR#: [id number] Acct: [id number] Name: MARY SAGE Rep #: [id number] : 1975 F 49 From: Raad Bey MD PCP: Dr. Dimitry Sr MD Status: [facility] [place] Study:SCRN MAMM (CAD)W/SRIRAM BILAT Date of Exa m: 06/09/25 Exam# [id number] Ordering Dr: Lazara Hickey GEOMETRICIAN GEOMETRICIAN-C EXAM: SCRN MAMM (CAD)W/SRIRAM BILAT DATE: 06/09/2025 CLINICAL HISTORY: F, Age 49 y/o , SCREEN FOR BREAST CANCER No family history. TECHNIQUE: SCRN MAMM (CAD)W/SRIRAM BILAT COMPARISON: Prior exam(s) dated June 19, 2023.. FINDINGS: TISSUE DENSITY: The breasts are extremely dense, which lowers the sensitivity ofmammography. Bilateral Breast Mammographic Findings: No significant masses, calcifications or other abnormalities are identified. No suspicious masses, areas of developing architectural distortion, or suspicious calcifications. There has been no significant interval change. BI/SCRN MAMM (CAD)W/SRIRAM BILAT IMPRESSION: Stable examination. OVERALL FINAL ASSESSMENT BI-RADS 1: NEGATIVE. RECOMMENDATION: Routine annual follow-up in 1 Year A letter with findings and recommendations will be mailed to the patient. Reading Location: [place] [address] CC: CAROL Hickey; Dr. Dimitry Sr MD ~ Wheel Tuner: Signed [facility] Cervical or vaginal specimen microscopic examination by liquid based cytology (reportOrdered By: Lazara Hickey on 06-09-2025 Cytology report Cyto stain.thin prep Doc (Cvx/Vag) Comment . [facility] Comment on above: Criteria not met, HP V Genotype not performed.Performed at: - [facility] [id number] Director: Odalys Caceres MD, Phone: [phone] at: = - [facility] [id number] Director: Odalys Caceres MD, Phone: [phone] Cervical or vagninal specime n microscopic examination by cytology stain (reported asOrdered By: Lazara Hickey on 06-09-2025 Cytology report Cyto stain Doc (Cvx/Vag) Comment . [facility] Comment on above: The Pap smear is a s creening test designed to aid in thedetection of premalignant and malignant conditions of theuterine cervix. It is not a diagnostic procedure andshould not be used as the sole means of detecting cervicalcancer. Both false-positive and false-negative reports dooccur. Detection in cervical specim en of any of human papilloma virus (HPV) 16, 18, 31, 33,Ordered By: Lazara Hickey on 06-09-2025 HPV 16+18+31+33+35+39+45+5 1+52+56+58+59+66+68 DNA Probe+sig amp Ql (Cvx) Negative Negative [facility] Comment on above: This nucleic acid am plification test detects fourteen high- risk HPV types (16,18,31,33,35,39,45,51,52,56,58,59,66,68)without differentiation. Laboratory - CytologyOrdered By: Lazara Hickey on 06-09-2025 Vocal Music Teacher Cyto stain Nom (Cvx/Vag) [ID] Comment . [facility] Comment on above: Ludy Dunaway Cyto logist (ASCP) Laboratory - Miscellaneous t estsOrdered By: Lazara Hickey on 06-09-2025 Service comment (Unsp spec) [Interp] . . [facility] No Panel InformationOrdered By: Lazara Hickey on 06-09-2025 Pap Smear Specimen Adequacy Comment . [facility] Comment on above: Satisfactory for sandrine luation. Endocervical and/or squamous metaplasticcells (endocervical component) are present. 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 Required: No Is patient in pain?: No Allergies doxycycline Allergy (Intermediate, Verified 06/09/25 09:21) Rash Medications ???Medication ???Instructions ???Recorded ???Confirmed ???Type ferrous sulfate 325 mg (65 mg 65 mg PO .QOD 07/04/22 06/09/25 Hi story iron) tablet levothyroxine 88 mcg tablet 88 mcg PO .daily, 1 1/2 on 06/09/25 Rx (Synthroid) #96 tabs estradiol 0.01% (0.1 mg/gram) See Rx Instructions vaginal 06/09/25 Rx vaginal cream .COMPLEX #42.5 grams Is last menstrual period known: No Post menopausal: Yes Patient : No : No PFSH Medical History (Updated 06/09/25 @ 09:36 by Lazara Hickey GEOMETRICIAN, GEOMETRICIAN-C) Pretibial myxedema Post-menopausal Wears contact lenses History of ulceration Non-smoker Family hx of colon cancer 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 Thyroid disease Anemia Surgical History History of umbilical hernia repair Family History Grandfather Colon cancer Other Anemia Autoimmune disorder Social History Smoking Status: Never smoker alcohol intake: current alcohol intake frequency: 0-2 drinks per day details: social substance use type: does not use caffeine: Yes what type of physical activity do you participate in: walking and additional details: treadmill frequency: 5-6 times per week seatbelt use: always do you feel safe at home: Yes 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 Date Name GA/Weeks Outcome Route Bth Weight Gen Labor Lgth Anesthesia Del Locatn Provider FOB Unknown 2000 [place] Unknown 2003 [facility] Annual (PSYCHOLOGY PHYSICIAN) Details: MARY SAGE is a 49 year old who presents for annual exam. Still struggling with vaginal dryness Last PAP: 2019 History of abnormal PAP: no Last mammogram: today pending History of abnormal mammogram: no Colon cancer screenin Other preventative health care screenings: [facility] Female Reproductive History Questions: metorrhagia: No, sexually active: Yes, dyspareunia: Yes and PCB: No Menopausal Treatment: Yes Vaginal Estrogen ROS Const Constitutional: Denies fatigue, weight gain or weight loss Cardio Card: Denies chest pain Resp Resp: Denies cough or dyspnea on exertion GI GI: Denies abdominal pain, bloating, change in stool character, constipation or vomiting : Reports as per HPI; Denies difficulty voiding, pelvic pain, urinary frequency, urinary incontinence, urinary urgency, vaginal discharge or vaginal pruritus Exam Const General: cooperative, healthy appearing, no acute distress and well developed Orientation: alert, oriented to person and oriented to place HENMT Head: normal to inspection Neck Neck: normal visual inspection Thyroid: thyroid normal Lymphatic: no lymphadenopathy noted Chest Breast inspection: normal inspection of the breasts and normal inspection of the axillae Breast palpation: normal palpation of the breasts, normal palpation of the axillae and no axillary lymphadenopathy Resp Effort Inspection: normal respiratory effort GI Palpation: soft, no masses and nontender Rectal Exam: deferred External Female Exam: normal external appearance and normal appearance of the urethra Urethra: normal appearance of the urethra and normal palpation Speculum Exam - Vagina: normal vaginal discharge and vagina atrophic (pale pink at introitus) Speculum Exam - Cervix: normal appearance of the cervix Bimanual Exam- Vagina Uterus: normal bimanual exam, uterine size normal, uterine shape normal and non-tender Bimanual Exam- Adnexa, other: normal adnexae, no masses, normal and non-tender Pelvic Support: normal Neuro General: patient alert and patient oriented x3 Psych Affect: normal affect Coding Level of Care Code Off vis,est,prev 40-64yrs Diagnoses Encoun (more content not included)... Normal [facility] SCRN MAMM (CAD)W/SRIRAM BILATo n 06-09-2025 SCRN MAMM (CAD)W/SRIRAM BILAT [facility] Imaging Services [address] [place] [id number] SCRN MAMM (CAD)W/SRIRAM BILAT MR#: [id number] Acct: [id number] Name: MARY SAGE Rep #: [id number] : 1975 F 49 From: Rohan henson MD PCP: Dr. Dimitry Sr MD Status: [facility] Study: SCRN MAMM (CAD)W/SRIRAM BILAT Date of Exam: 05/27 03/21 Exam# [id number] Ordering Dr: Lazara Hickey GEOMETRICIAN GEOMETRICIAN -C EXAM: SCRN MAMM (CAD)W/SRIRAM BILAT DATE: 06/09/2025 CLINICAL HISTORY: F, Age 49 y/o , SCREEN FOR BREAST CANCER No family history. TECHNIQUE: SCRN MAMM (CAD)W/SRIRAM BILAT COMPARISON: Prior exam(s) dated June 19, 2023.. FINDINGS: TISSUE DENSITY: The breasts are extremely dense, which lowers the sensitivity of mammography. Bilateral Breast Mammographic Findings: No significant masses, calcifications or other abnormalities are identified. No suspicious masses, areas of developing architectural distortion, or suspicious calcifications. There has been no significant interval change. BI/SCRN MAMM (CAD)W/SRIRAM BILAT IMPRESSION: Stable examination. OVERALL FINAL ASSESSMENT BI-RADS 1: NEGATIVE. RECOMMENDATION: Routine annual follow-up in 1 Year A letter with findings and recommendations will be mailed to the patient. Reading Location: [place] [address] CC: CAROL Hickey; Dr. Dimitry Sr MD Wheel Tuner: Signed Normal [facility] Thyroid Stim Immunoglobon THY STIM IMMUNO <0.10 Normal 0.00-0.55 [facility] Comment on above: Result Comment: Perf ormed at: [facility] [id number] Measurement Supervisor: Ceferino Kitchen MD, Phone: [phone] Performed By: #### L 501.9520, L506.0400, L3400.4700 #### [facility] [address] [place], [place], [address] T4 Free Directon 05-06-2025 T4 FREE DIRECT 1.20 ng/dL Normal 0.76-1.46 [facility] Comment on above: Performed By: #### L 501.9520, L506.0400, L3400.4700 #### [facility] [address] [facility] [place], [place], [id number] T4 freeOrdered By: Eric Bonilla on 05-06-2025 Free T4 [Mass/Vol] 1.20 ng/dL 0.76-1.46 [facility] TSH DL <= 0.005 mIU/L QnOrde red By: Eric Bonilla on 05-06-2025 TSH Qn 2.220 uIU/mL 0.300-4.200 [facility] Thyroid Stim Hormone (TSH)on 05-06-2025 TSH 2.220 uIU/mL Normal 0.300-4.200 [facility] Comment on above: Performed By: #### L 501.9520, L506.0400, L3400.4700 #### [facility] [address] [place], [address] Thyroid stimulating immunogl obulins detectionOrdered By: Eric Bonilla on 05-06-2025 Thyroid stimulating immunoglobulins Ql (S) <0.10 IU/L 0.00-0.55 [facility] Comment on above: Performed at: [address] [id number] Director: Ceferino Kitchen MD, Phone: [phone] Allergen Resp. Area ALTERNARIA TEN <0.10 Normal Class 0 [facility] Comment on above: Performed By: #### L 5500.0410, L5500.0700 #### [facility] [address] [place], [address] GUILLAUME, WHITE <0.10 Normal Class 0 [facility] Comment on above: Performed By: #### L 5500.0410, L5500.0700 #### [facility] [address] [place], [address] ASPERGILLUS FUM <0.10 Normal Class 0 [facility] Comment on above: Performed By: #### L 5500.0410, L5500.0700 #### [facility] [address] [place], [address] BERMUDA GRASS 1.38 kU/L Abnormal Class II [facility] Comment on above: Performed By: #### L 5500.0410, L5500.0700 #### [facility] [address] [place], [address] BIRCH 0.13 kU/L Abnormal Class 0/I [facility] Comment on above: Performed By: #### L 5500.0410, L5500.0700 #### [facility] [address] [place], [address] BLACK WALNUT 0.18 kU/L Abnormal Class 0/I [facility] Comment on above: Performed By: #### L 5500.0410, L5500.0700 #### [facility] [address] [place], [address] CAT HAIR/DANDER 0.61 kU/L Abnormal Class II [facility] Comment on above: Performed By: #### L 5500.0410, L5500.0700 #### [facility] [address] [place], [address] CLADOSPOR HERB <0.10 Normal Class 0 [facility] Comment on above: Performed By: #### L 5500.0410, L5500.0700 #### [facility] [address] [place], [address] COCKROACH,AMER <0.10 Normal Class 0 [facility] Comment on above: Performed By: #### L 5500.0410, L5500.0700 #### [facility] [address] [place], [address] COTTONWOOD <0.10 Normal Class 0 [facility] Comment on above: Performed By: #### L 5500.0410, L5500.0700 #### [facility] [address] [place], [address] D FARINAE MITE 1.37 kU/L Abnormal Class II [facility] [facility] Comment on above: Performed By: #### L 5500.0410, [id number] #### [facility] [address] [place], [address] D PTERONYSSINUS 1.31 kU/L Abnormal Class II [facility] Comment on above: Performed By: #### L 5500.0410, [id number] #### [facility] [address] [place], [address] DOG EPITHELIA <0.10 Normal Class 0 [facility] Comment on above: Performed By: #### L 5500.0410, [id number] #### [facility] [address] [place], [address] ELM,AMER WHITE 0.10 kU/L Abnormal Class 0/I [facility] Comment on above: Performed By: #### L 5500.0410, [id number] #### [facility] [address] [place], [address] IMMUNOGLOB E 63 IU/mL Normal 6-495 [facility] Comment on above: Performed By: #### L 5500.0410, [id number] #### [facility] [address] [place], [address] MAPLE/BOX ELDER 0.40 kU/L Abnormal Class I [facility] Comment on above: Performed By: #### L 5500.0410, [id number] #### [facility] [address] [place], [address] MOUNTAIN CEDAR <0.10 Normal Class 0 [facility] Comment on above: Performed By: #### L 5500.0410, [id number] #### [facility] [address] [place], [address] Mouse Urine <0.10 Normal Class 0 [facility] Comment on above: Performed By: #### L 5500.0410, [id number] #### [facility] [address] [place], [address] MULBERRY,WHITE <0.10 Normal Class 0 [facility] Comment on above: Performed By: #### L 5500.0410, [id number] #### [facility] [address] [place], [address] OAK, WHITE <0.10 Normal Class 0 [facility] Comment on above: Performed By: #### L 5500.0410, [id number] #### [facility] [address] [place], [address] PECAN 1.59 kU/L Abnormal Class III [facility] Comment on above: Performed By: #### L 5500.0410, [id number] #### [facility] [address] [place], [address] PEN NOTATUM <0.10 Normal Class 0 [facility] Comment on above: Performed By: #### L 5500.0410, [id number] #### [facility] [address] [place], [address] PIGWEED, ROUGH <0.10 Normal Class 0 [facility] Comment on above: Performed By: #### L 5500.0410, [id number] #### [facility] [address] [place], [address] RAGWEED SH/COM 0.14 kU/L Abnormal Class 0/I [facility] Comment on above: Performed By: #### L 5500.0410, [id number] #### [facility] [address] [place], [address] KUWAITI THISTLE <0.10 Normal Class 0 [facility] Comment on above: Performed By: #### L 5500.0410, [id number] #### [facility] [address] [place], [address] SHEEP SORREL <0.10 Normal Class 0 [facility] Comment on above: Performed By: #### L 5500.0410, [id number] #### [facility] [address] [place], [address] SYCAMORE, AMER <0.10 Normal Class 0 [facility] Comment on above: Performed By: #### L 5500.0410, [id number] #### [facility] [address] [place], [address] RADHA GRASS 6.02 kU/L Abnormal Class IV [facility] Comment on above: Performed By: #### L 5500.0410, [id number] #### [facility] [address] [place], [address] Allergen, Food Profileon CLAM <0.10 Normal Class 0 [facility] Comment on above: Performed By: #### L 5500.0410, [id number] #### [facility] [address] [place], [address] CODFISH <0.10 Normal Class 0 [facility] Comment on above: Performed By: #### L 5500.0410, [id number] #### [facility] [address] [place], [address] COMMENT Comment Normal . [facility] Comment on above: Result Comment: Dg luz of Specific IgE Class Description of Class ----- < 0.10 0 Negative 0.10 - 0.31 0/I Equivocal/Low 0.32 - 0.55 I Low 0.56 - 1.40 II Moderate 1.41 - 3.90 III High 3.91 - 19.00 IV Very High 19.01 - 100.00 V Very High >100.00 Very High Performed By: #### L 5500.0410, [id number] #### [facility] [address] [place], [address] CORN <0.10 Normal Class 0 [facility] Comment on above: Performed By: #### L 5500.0410, [id number] #### [facility] [address] [place], [address] EGG, WHITE <0.10 Normal Class 0 [facility] Comment on above: Performed By: #### L 5500.0410, [id number] #### [facility] [address] [place], [address] MILK (COW) 0.18 kU/L Abnormal Class 0/I [facility] Comment on above: Performed By: #### L 5500.0410, [id number] #### [facility] [address] [place], [address] PEANUT <0.10 Normal Class 0 [facility] Comment on above: Performed By: #### L 5500.0410, [id number] #### [facility] [address] [place], [address] SCALLOP <0.10 Normal Class 0 [facility] Comment on above: Performed By: #### L 5500.0410, [id number] #### [facility] [address] [place], [address] SESAME SEED <0.10 Normal Class 0 [facility] Comment on above: Result Comment: Perf ormed at: - [facility] [id number] Measurement Supervisor: Ceferino Kitchen MD, Phone: [phone] Performed By: #### L 5500.0410, [id number] #### [facility] [address] [place], [address] SHRIMP <0.10 Normal Class 0 [facility] Comment on above: Performed By: #### L 5500.0410, [id number] #### [facility] [address] [place], [address] SOYBEAN <0.10 Normal Class 0 [facility] Comment on above: Performed By: #### L 5500.0410, [id number] #### [facility] [address] [place], [address] WALNUT,(Food) <0.10 Normal Class 0 [facility] Comment on above: Performed By: #### L 5500.0410, [id number] #### [facility] [address] [place], [address] WHEAT <0.10 Normal Class 0 [facility] Comment on above: Performed By: #### L 5500.0410, [id number] #### [facility] [address] [place], [address] IgEOrdered By: Chuck De La Cruz on 04-23-2025 IgE 63 IU/mL 6-495 [facility] - Miscellaneous t estsOrdered By: Chuck De La Cruz on 04-23-2025 Service comment (Unsp spec) [Interp] Comment . [facility] Comment on above: Levels of Specific I gE Class Description of Class ----- < 0.10 0 Negative 0.10 - 0.31 0/I Equivocal/Low 0.32 - 0.55 I Low 0.56 - 1.40 II Moderate 1.41 - 3.90 III High 3.91 - 19.00 IV Very High 19.01 - 100.00 V Very High >100.00 Very High Serum Gibraltarian sycamore IgE antibody assay (units/volume)Ordered By: Chuck on 04-23-2025 Gibraltarian Wesley IgE Qn (S) <0.10 kU/L Class 0 [facility] Serum Aspergillus fumigatus IgE antibody assay (units/volume)Ordered By: 04-23-2025 A. fumigatus IgE Qn (S) <0.10 kU/L Class 0 [facility] Serum Bermuda grass IgE anti body assay (units/volume)Ordered By: on 04-23-2025 Bermuda grass IgE Qn (S) 1.38 kU/L High Class II [facility] Serum Cladosporium herbarum IgE antibody assay (units/volume)Ordered By: Chuck De La Cruz on 04-23-2025 C. herbarum IgE Qn (S) <0.10 kU/L Class [address] [facility] Serum Dermatophagoides ptero nyssinus specific IgE antibody assay (units/volume)Ordered By: Chucksummers on 04-23-2025 house dust mite IgE Qn (S) 1.31 kU/L High Class II [facility] Serum Fraxinus americana IgE antibody assay (units/volume)Ordered By: Chuck De La Cruz on 04-23-2025 White Guillaume IgE Qn (S) <0.10 kU/L Class 0 [facility] Serum Rumex acetosella IgE a ntibody assay (units/volume)Ordered By: Chucksummers on 04-23-2025 Sheep Pettus IgE Qn (S) <0.10 kU/L Class 0 [facility] Serum Colombian thistle specif ic IgE antibody assayOrdered By: Chuck on 04-23-2025 Saltwort IgE Qn (S) <0.10 kU/L Class 0 [facility] Serum black walnut IgE antib loy assay (units/volume)Ordered By: Chuck on 04-23-2025 Black Brewton IgE Qn (S) <0.10 kU/L Class 0 [facility] Black Brewton IgE Qn (S) 0.18 kU/L High Class 0/I [facility] Serum clam IgE antibody assa y (units/volume)Ordered By: Chuck De La Cruz on 04-23-2025 Clam IgE Qn (S) <0.10 kU/L Class 0 [facility] Serum codfish IgE antibody a ssay (units/volume)Ordered By: Chuck De La Cruz on 04-23-2025 Codfish IgE Qn (S) <0.10 kU/L Class 0 [facility] Serum corn IgE antibody assa y (units/volume)Ordered By: Chuck De La Cruz on 04-23-2025 Lisbon IgE Qn (S) <0.10 kU/L Class 0 [facility] Serum cottonwood IgE antibod y assay (units/volume)Ordered By: Chuck De La Cruz on 04-23-2025 Manteno IgE Qn (S) <0.10 kU/L Class 0 [facility] Serum cow milk IgE antibody assay (units/volume)Ordered By: on 04-23-2025 Cow milk IgE Qn (S) 0.18 kU/L High Class 0/I [facility] Serum dog epithelium IgE ant ibody assay (units/volume)Ordered By: on 04-23-2025 Dog epithelium IgE Qn (S) <0.10 kU/L Class 0 [facility] Serum egg white IgE antibody assay (units/volume)Ordered By: on 04-23-2025 Egg white IgE Qn (S) <0.10 kU/L Class 0 [facility] Serum mountain cedar specifi c IgE antibody assayOrdered By: on 04-23-2025 Mountain Juniper IgE Qn (S) <0.10 kU/L Class 0 [facility] Serum peanut IgE antibody as say (units/volume)Ordered By: on 04-23-2025 Peanut IgE Qn (S) <0.10 kU/L Class 0 [facility] Serum soybean IgE antibody a ssay (units/volume)Ordered By: on 04-23-2025 Soybean IgE Qn (S) <0.10 kU/L Class 0 [facility] Serum radha IgE antibody a ssay (units/volume)Ordered By: on 04-23-2025 Radha IgE Qn (S) 6.02 kU/L High Class IV [facility] Serum wheat IgE antibody ass ay (units/volume)Ordered By: on 04-23-2025 Wheat IgE Qn (S) <0.10 kU/L Class 0 [facility] Serum white elm IgE antibody assay (units/volume)Ordered By: on 04-23-2025 White Elm IgE Qn (S) 0.10 kU/L High Class 0/I [facility] Serum white mulberry IgE ant ibody assay (units/volume)Ordered By: on 04-23-2025 White mulberry IgE Qn (S) <0.10 kU/L Class 0 [facility] Absolute lymphocyte countOrd ered By: Eric Bonilla on 09-05-2023 Lymphocytes Auto (Unsp spec) [#/Vol] 2.12 10*3/uL 0.83-4.51 [facility] Basophil percentageOrdered B y: Eric Bonilla on 09-05-2023 Basophils/100 WBC (Bld) 1.4 % 0-1 [facility] Cholesterol [Mass/Vol] 117 mg/dL <[address] [facility] Comment on above: <200 mg/dL Desirable 200-240 mg/dL Borderline >240 mg/dL High Risk Eosinophils/100 WBC (Bld) 2.7 % 0-5 [facility] Neutrophils (Bld) [#/Vol] 4.2 10*3/uL 2.0-7.7 [facility] Neutrophils/100 WBC (Bld) 57.0 % 47-70 [facility] Triglyceride [Mass/Vol] 93 mg/dL <199 [facility] Comment on above: The drugs N-Acetylcy steine and Metamizole may falsely depress this assay.Serum Triglycerides Reference Interval Normal <150 mg/dL Borderline high 150 - 199 mg/dL High 200 - 499 mg/dL Very High > or = 500 mg/dL WBC (Bld) [#/Vol] 7.3 10*3/uL 4.4-11.0 [facility] Blood erythrocytes count (nu mber/volume)Ordered By: Eric Bonilla on 09-05-2023 RBC (Bld) [#/Vol] 4.83 10*6/uL 4.2-5.4 [facility] Blood hemoglobin measurement (mass/volume)Ordered By: Eric Bonilla on 09-05-2023 Hemoglobin (Bld) [Mass/Vol] 14.8 g/dL 12.0-15.0 [facility] Blood lymphocytes/100 leukoc ytesOrdered By: Eric Bonilla on 09-05-2023 Lymphocytes/100 WBC (Bld) 28.9 % 19-41 [facility] Blood monocytes/100 leukocyt esOrdered By: Eric Bonilla on 09-05-2023 Monocytes/100 WBC (Bld) 9.7 % 0-10 [facility] Blood platelet mean volumeOr dered By: Eric Bonilla on 09-05-2023 Platelet mean volume (Bld) [Entitic vol] 11.2 fL 6.2-12.0 [facility] Determination of erythrocyte mean corpuscular volume (MCV)Ordered By: Eric Bonilla on 09-05-2023 MCV (RBC) [Entitic vol] 95.2 fL 81-99 [facility] Hematocrit Auto (Bld) [Volum e fraction]Ordered By: Eric Bonilla on 09-05-2023 Hematocrit (Bld) [Volume fraction] 46.0 % 37-47 [facility] - Chemistry and C hemistry - challengeOrdered By: Ericmiguel Bonilla on 09-05-2023 Free T4 [Mass/Vol] 1.05 ng/dL 0.76-1.46 [facility] - Hematology and Cell countsOrdered By: Eric Bonilla on 09-05-2023 Erythrocyte distribution width (RBC) [Entitic vol] 42.3 fL 35.1-43.9 [facility] Erythrocyte distribution width (RBC) [Ratio] 12.1 % 11.6-14.6 [facility] Immature granulocytes/100 WBC (Bld) 0.300 % 0.0-0.9 [facility] Comment on above: IG% - Immature Granu locytes (promyelocytes, myelocytes and metamyelocytes) > 1% indicates that a LEFT SHIFT is Present. MCH (RBC) [Entitic mass] 30.6 pg 27.0-32.0 [facility] Nucleated RBC/100 WBC (Bld) [Ratio] 0 % 0-5 [facility] MCHC Auto (RBC) [Mass/Vol]Or dered By: Eric Bonilla on 09-05-2023 MCHC (RBC) [Mass/Vol] 32.2 g/dL 32-36 [facility] No Panel InformationOrdered By: Eric Bonilla on 09-05-2023 Thyroid Stimulating Hormone (TSH) 2.33 uIU/mL 0.358-3.74 [facility] Vitamin D 25-Hydroxy 39.6 ng/mL [facility] Comment on above: Vitamin D 25(OH) Sta tus Range Deficiency <20 ng/mL (50nmol/L) Insufficiency 20 - 30 ng/mL (50 - 75 nmol/L) Sufficiency 30 - 100 ng/mL (75 - 250 nmol/L) Toxicity >100 ng/mL (>250 nmol/L) Platelets bldOrdered By: Elmer Bonilla on 09-05-2023 Platelets (Bld) [#/Vol] 287 10*3/uL 150-450 [facility] Serum or plasma cholesterol in HDL measurement (mass/volume)Ordered By: Eric Bonilla on 09-05-2023 Cholesterol in HDL [Mass/Vol] 50 mg/dL >40 [facility] Comment on above: The drugs N-Acetylcy steine and Metamizole may falsely depress this assay. Reference Range HDL <40 mg/dL Low HDL Cholesterol HDL >or= 60 mg/dL High HDL Cholesterol Serum or plasma cholesterol in VLDL measurement (mass/volume)Ordered By: Eric Bonilla on 09-05-2023 Cholesterol in VLDL [Mass/Vol] 19 mg/dL 5-40 [facility] Serum or plasma ferritin jack surement (mass/volume)Ordered By: Eric Bonilla on 09-05-2023 Ferritin [Mass/Vol] 20 ng/mL 8-252 [facility] Serum or plasma low density lipoprotein (LDL) cholesterol measurement (mass/volume)Ordered By: Eric Bonilla on 09-05-2023 Cholesterol in LDL [Mass/Vol] 48 mg/dL 0-130 [facility] - Chemistry and C hemistry - challengeon 10-19-2022 Free T4 [Mass/Vol] 1.09 ng/dL 0.76-1.46 [facility] Work Phone: No Panel Informationon 10-19 Thyroid Stimulating Hormone (TSH) 2.44 uIU/mL 0.358-3.74 [facility] Work Phone: Absolute lymphocyte counton 08-19-2022 Lymphocytes Auto (Unsp spec) [#/Vol] 1.52 10*3/uL 0.83-4.51 [facility] Work Phone: Basophil percentageon 2021 Basophils/100 WBC (Bld) 1.1 % 0-1 [facility] Work Phone: Eosinophils/100 WBC (Bld) 1.3 % 0-5 [facility] Work Phone: Neutrophils (Bld) [#/Vol] 2.6 10*3/uL 2.0-7.7 [facility] Work Phone: Neutrophils/100 WBC (Bld) 54.6 % 47-70 [facility] Work Phone: WBC (Bld) [#/Vol] 4.8 10*3/uL 4.4-11.0 [facility] Work Phone: Blood erythrocytes count (nu mber/volume)on 08-19-2022 RBC (Bld) [#/Vol] 4.91 10*6/uL 4.2-5.4 [facility] Work Phone: Blood hemoglobin measurement (mass/volume)on 08-19-2022 Hemoglobin (Bld) [Mass/Vol] 15.2 g/dL 12.0-15.0 [facility] Work Phone: Blood lymphocytes/100 leukoc yteson 08-19-2022 Lymphocytes/100 WBC (Bld) 31.9 % 19-41 [facility] Work Phone: Blood monocytes/100 leukocyt eson 08-19-2022 Monocytes/100 WBC (Bld) 10.9 % 0-10 [facility] Work Phone: Blood platelet mean volumeon 08-19-2022 Platelet mean volume (Bld) [Entitic vol] 10.8 fL 6.2-12.0 [facility] Work Phone: Determination of erythrocyte mean corpuscular volume (MCV)on 08-19-2022 MCV (RBC) [Entitic vol] 93.5 fL 81-99 [facility] Work Phone: Hematocrit Auto (Bld) [Volum e fraction]on 08-19-2022 Hematocrit (Bld) [Volume fraction] 45.9 % 37-47 [facility] Work Phone: Laboratory - Chemistry and C hemistry - challengeon 08-19-2022 Free T4 [Mass/Vol] 1.11 ng/dL 0.76-1.46 [facility] Work Phone: Laboratory - Hematology and Cell countson 08-19-2022 Erythrocyte distribution width (RBC) [Entitic vol] 39.3 fL 35.1-43.9 [facility] Work Phone: Erythrocyte distribution width (RBC) [Ratio] 11.4 % 11.6-14.6 [facility] Work Phone: Immature granulocytes/100 WBC (Bld) 0.200 % 0.0-0.9 [facility] Work Phone: Comment on above: IG% - Immature Granu locytes (promyelocytes, myelocytes and metamyelocytes) > 1% indicates that a LEFT SHIFT is Present. MCH (RBC) [Entitic mass] 31.0 pg 27.0-32.0 [facility] Work Phone: Nucleated RBC/100 WBC (Bld) [Ratio] 0 % 0-5 [facility] Work Phone: MCHC Auto (RBC) [Mass/Vol]on 08-19-2022 MCHC (RBC) [Mass/Vol] 33.1 g/dL 32-36 [facility] Work Phone: No Panel Informationon 08-19 Thyroid Stimulating Hormone (TSH) 4.82 uIU/mL 0.358-3.74 [facility] Work Phone: Platelets bldon 08-19-2022 Platelets (Bld) [#/Vol] 267 10*3/uL 150-450 [facility] Work Phone: Absolute lymphocyte counton 07-07-2022 Lymphocytes Auto (Unsp spec) [#/Vol] 2.27 10*3/uL 0.83-4.51 [facility] Work Phone: Basophil percentageon 2021 Basophils/100 WBC (Bld) 0.9 % 0-1 [facility] Work Phone: Eosinophils/100 WBC (Bld) 1.7 % 0-5 [facility] Work Phone: Neutrophils (Bld) [#/Vol] 3.8 10*3/uL 2.0-7.7 [facility] Work Phone: Neutrophils/100 WBC (Bld) 55.0 % 47-70 [facility] Work Phone: WBC (Bld) [#/Vol] 7.0 10*3/uL 4.4-11.0 [facility] Work Phone: Blood erythrocytes count (nu mber/volume)on 07-07-2022 RBC (Bld) [#/Vol] 4.70 10*6/uL 4.2-5.4 [facility] Work Phone: Blood hemoglobin measurement (mass/volume)on 07-07-2022 Hemoglobin (Bld) [Mass/Vol] 14.6 g/dL 12.0-15.0 [facility] Work Phone: Blood lymphocytes/100 leukoc yteson 07-07-2022 Lymphocytes/100 WBC (Bld) 32.6 % 19-41 [facility] Work Phone: Blood monocytes/100 leukocyt eson 07-07-2022 Monocytes/100 WBC (Bld) 9.5 % 0-10 [facility] Work Phone: Blood platelet mean volumeon 07-07-2022 Platelet mean volume (Bld) [Entitic vol] 10.8 fL 6.2-12.0 [facility] Work Phone: Determination of erythrocyte mean corpuscular volume (MCV)on 07-07-2022 MCV (RBC) [Entitic vol] 94.0 fL 81-99 [facility] Work Phone: Hematocrit Auto (Bld) [Volum e fraction]on 07-07-2022 Hematocrit (Bld) [Volume fraction] 44.2 % 37-47 [facility] Work Phone: Laboratory - Hematology and Cell countson 07-07-2022 Erythrocyte distribution width (RBC) [Entitic vol] 41.7 fL 35.1-43.9 [facility] Work Phone: Erythrocyte distribution width (RBC) [Ratio] 11.9 % 11.6-14.6 [facility] Work Phone: Immature granulocytes/100 WBC (Bld) 0.300 % 0.0-0.9 [facility] Work Phone: Comment on above: IG% - Immature Granu locytes (promyelocytes, myelocytes and metamyelocytes) > 1% indicates that a LEFT SHIFT is Present. MCH (RBC) [Entitic mass] 31.1 pg 27.0-32.0 [facility] Work Phone: Nucleated RBC/100 WBC (Bld) [Ratio] 0 % 0-5 [facility] Work Phone: MCHC Auto (RBC) [Mass/Vol]on 07-07-2022 MCHC (RBC) [Mass/Vol] 33.0 g/dL 32-36 [facility] Work Phone: No Panel Informationon 07-07 Tryptase 11.9 ug/L 2.2-13.2 [facility] Work Phone: Platelets bldon 07-07-2022 Platelets (Bld) [#/Vol] 263 10*3/uL 150-450 [facility] Work Phone: Serum cyclic citrullinated p eptide IgG antibody assay (units/volume)on 07-07-2022 Cyclic citrullinated peptide IgG Qn 9 units 0-19 [facility] Work Phone: Comment on above: Negative <20 Weak po sitive 20 - 39 Moderate positive 40 - 59 Strong positive >59Performed at: [facility] [employer] [id number] Director: Ceferino Kitchen MD, Phone: [phone] Serum nuclear antibody titer by immunofluorescenceon 07-07-2022 Nuclear Ab IF (S) [Titer] Negative . [facility] Work Phone: Comment on above: Negative <1:80 Cirilo blanco 1:80 Positive >1:80ICAP nomenclature: AC-0For more information about Hep-2 cell patterns useANApatterns.org, the official website for theInternational Consensus on Antinuclear Antibody (PRADEEP)Patterns (ICAP).Performed at: [facility] [employer] [id number] Director: Isrrael Taveras PhD, Phone: [phone] Serum or plasma C reactive p rotein measurement (mass/volume)on 07-07-2022 CRP [Mass/Vol] mg/L 0.0-3.0 [facility] Work Phone: Comment on above: C-Reactive Protein ( CRP) provides useful information for thediagnosis, therapy and monitoring of inflammatory processesand associated diseases. For the evaluation of Relative Riskfor Cardiovascular Disease, a High Sensitivity CRP (HSCRP)should be ordered. No Panel Informationon 05-19 Immunoglobulin E 54 IU/mL 6-495 [facility] Work Phone: Miscellaneous Test See comment [facility] Work Phone: Comment on above: TEST RESULT LIMITSMa nnose Binding Lectin (MBL), 1990 ng/mL Low: 0 - 50 Intermediate: 51 - 500 Normal: >500 TESTING PERFORMED AT [employer]. ORIGINAL REPORT ON FILE IN LAB CONTAINS ADDITIONAL TEST SITE INFORMATION. Total Complement (CH50) 59 U/mL >41 [facility] Work Phone: Comment on above: Age Male Female 1 - 30 days Not Estab. Not Estab. 31 days - 6 months >32 >20 7 months - 17 years >39 >39 >17 years >41 >41 NOTE: The adult (>17 years) reference interval range is used to flag abnormals on this report. If the patient is 17 years old or younger, use the table above to determine out of range values. Tryptase 13.4 ug/L 2.2-13.2 [facility] Work Phone: Vitamin D 25-Hydroxy 37.8 ng/mL [facility] Work Phone: Comment on above: Vitamin D 25(OH) Sta tus Range Deficiency <20 ng/mL (50nmol/L) Insufficiency 20 - 30 ng/mL (50 - 75 nmol/L) Sufficiency 30 - 100 ng/mL (75 - 250 nmol/L) Toxicity >100 ng/mL (>250 nmol/L) Serum or plasma IgA measurem ent (mass/volume)on 05-19-2022 IgA [Mass/Vol] 299 mg/dL 87-352 [facility] Work Phone: Serum or plasma IgG measurem ent (mass/volume)on 05-19-2022 IgG [Mass/Vol] 1181 mg/dL [phone] [facility] Work Phone: Serum or plasma IgM measurem ent (mass/volume)on 05-19-2022 IgM [Mass/Vol] 114 mg/dL 26-217 [facility] Work Phone: Serum or plasma complement C 4 measurement (mass/volume)on 05-19-2022 Complement C4 [Mass/Vol] 10 mg/dL 12-38 [facility] Work Phone: Serum or plasma functional c omplement C1 esterase inhibitor detectionon 05-19-2022 Complement C1 esterase inhibitor.functional Ql >100 . [facility] Work Phone: Comment on above: Result Units: %mean normal Abnormal <41 Equivocal 41 - 67 Normal >67 Serum or plasma thyroperoxid ase antibody assay (units/volume)on 05-19-2022 TPO Ab Qn 200 [IU]/mL 0-34 [facility] [facility] Work Phone: Comment on above: Performed at: CB - L kristynkaterina [address] [id number] Director: Isrrael Taveras PhD, Phone: [phone] at: [facility] [id number] [place], [place] [id number] Director: Ceferino Kitchen MD, Phone: [phone] Corey [facility] MARY SAGE ([id number]) 1975 F Date Time Provider Department 05/04/22 MOJGAN RUEDA During your visit today, we recorded the following information about you: Mojgan Rueda PA-C 05/04/2022 4:31 PM Signed Patient contacted to discuss below biopsy results c/w dermal hypersensitivity reaction. - +URI sinus infection in January 2022 that preceded this rash - never went to doctor/provider for this, resolved - Was not tested for COVID at that time - Denies GI viral illness - Hepatitis A/B/C and HIV avail in Care everywhere from 04/2021- all negative - Has triamcinolone 0.1% cream - stopped OCPs in 2020, only on synthroid daily (has been on this medication for several years) Plan: - Discussed most likely viral etiology - Begin prednisone taper as prescribed - Re start triamcinolone cream BID (she has Rx for this at home , declines refills at this time) - Follow up VV in 8 weeks - Punch biopsy site is healing well Per patient, she will have sutures removed by PCP Mojgan Rueda PA-C May 04, 2022 4:30 PM FINAL DIAGNOSIS A. Skin, left anterior lower leg, punch biopsy: - Consistent with dermal hypersensitivity reaction (see comment). ? JASPER/MARLON/mm 04/29/2022 at ?2:36 PM Diagnosis Comment A. Histologic sections demonstrate mild basal epidermal vacuolization. In the dermis, there is an accompanying dense perivascular lymphocytic infiltrate with rare eosinophils. ? These findings are nonspecific. The differential diagnosis includes a viral exanthem and drug eruption. Clinical correlation is recommended. Allergies As of Date: 05/04/2022 (No Known Allergies) Date Reviewed: 04/28/2022 Reviewed by: Mojgan Rueda PA-C - Fully Assessed Reason for Visit: Results [95] Primary Visit Diagnosis:Dermal hypersensitivity reaction [L23.9] Other Visit Diagnosis:Rash and other nonspecific skin eruption [R21] Order(s):predniSONE (DELTASONE) 20 mg tabletTake 3 tablets by mouth once daily for 5 days, THEN 2 tablets once daily for 5 days, THEN 1 tablet once daily for 5 days, THEN 0.5 tablets once daily for 5 days.Disp: 33 tabletRfl: 0 Prescriptions as of 05/04/2022 - predniSONE (DELTASONE) 20 mg tablet Take 3 tablets by mouth once daily for 5 days, THEN 2 tablets once daily for 5 days, THEN 1 tablet once daily for 5 days, THEN 0.5 tablets once daily for 5 days. - Desogestrel-Ethinyl Estradiol (APRI) 0.15-0.03 mg per tablet Take 1 tablet by mouth once daily. - LEVOTHYROXINE SODIUM (SYNTHROID ORAL) Take by mouth. - FERROUS SULFATE, DRIED (IRON, DRIED, ORAL) Take by mouth. Problem List As Of Date 05/04/2022 Noted Resolved Hypothyroid [E03.9] 06/17/2014 Prescriptions ordered this encounter Disp Refills Start End PREDNISONE 20 MG TABLET 33 t* 0 05/04/2022 05/24/2022 Route: ORAL Sig: Take 3 tablets by mouth once daily for 5 days, THEN 2 tablets once daily for 5 days, THEN 1 tablet once daily for 5 days, THEN 0.5 tablets once daily for 5 days. Encounter Status:Closed by MOJGAN RUEDA [facility]04/[facility] MARY SAGE ([id number]) 1975 F Date Time Provider Department 04/29/22 MOJGAN RUEDA During your visit today, we recorded the following information about you: Clementina Gomez LPN 04/29/2022 10:30 AM Signed Authorization to release medical information for to CC filled out and faxed to [phone] with confirmation. [facility]waiting reports from [facility] Valencia Vaughn RN 05/18/2022 10:31 AM Signed Outside medical records received including labs and history AND physical Sent to scan Allergies As of Date: 04/29/2022 (No Known Allergies) Date Reviewed: 04/28/2022 Reviewed by: Mojgan Rueda PA-C - Fully Assessed Reason for Visit: Release Of Medical Records [2017] Received Outside Medical Records [[id number]] Prescriptions as of 05/18/2022 - predniSONE (DELTASONE) 20 mg tablet Take 3 tablets by mouth once daily for 5 days, THEN 2 tablets once daily for 5 days, THEN 1 tablet once daily for 5 days, THEN 0.5 tablets once daily for 5 days. - Desogestrel-Ethinyl Estradiol (APRI) 0.15-0.03 mg per tablet Take 1 tablet by mouth once daily. - LEVOTHYROXINE SODIUM (SYNTHROID ORAL) Take by mouth. - FERROUS SULFATE, DRIED (IRON, DRIED, ORAL) Take by mouth. Problem List As Of Date 04/29/2022 Noted Resolved Hypothyroid [E03.9] 06/17/2014 Encounter Status:Closed by VALENCIA VAUGHN on 05/18/22 [facility] 04-28-2022 CNOV Office Visit ([facility] ) MARY SAGE ([id number]) 1975 F Date Time Provider Department 04/28/22 2:20 PM MOJGAN RUEDA During your visit today, we recorded the following information about you: Mojgan Rueda PA-C 04/28/2022 4:48 PM Signed SKIN EXAM NEW CC: This patient is a 46 year old female. Patient presents with: Rash HPI: Location: shins, ankles, arms (left forearm) Appearance (size, shape, color): red bumps, blisters Duration: 3 months Symptoms (growing, itching, bleeding, tender): itches at times Treatments: Had it a 1 year ago for 3-4 months- went away Returned in january 2022 Had course of prednisone taper in February- rash spread No other family member in home with rash Has not been out of the country January 2021 was 2nd covid vaccine- rash started in February Booster in October 2021- rash came back in january Family history of autoimmune - maternal grandmother +MS, mother +GBS Has had lab work done - pt. Brought current labwork - arthralgias in wrists and fingers have resolved - still with some burning tingling sensation in right arm/elbow and occasional low back pain - Denies F/C, GUILLEN, N/V - No new soaps/lotions/detergen ts - No close contacts with this rash - Patient takes synthroid daily, otherwise no Medications - Has an appt with an Junior Electrical Engineer next month - Unsure if current rash is the same or different on rash last Spring 2020 (extensive work up with outside Derm, ID, ED visit). Had (2) punch biopsies performed by Derm , unable to state results. Was never provided with what the biopsies showed, does not have the reports, thinks it was just a red rash. - In 2020, She was on several different abx for presumed cellulitis, prednisone taper, topical steroids This rash was ultimately deemed 2/2 her OCPs, which she no longer takes. She previously saw Rheumatology /Dr Margarita Chávez in [place] Fax [phone] Was told her workup was negative for inflammatory arthritis Notes reviewed from ED visit (03/2021) The patient has had a complete work-up with lab testing does not require more now. The patient does admit that after she was put on various forms of Keflex, doxycycline, and Bactrim, the trunk rash became worse. Her initial leg rash, when viewed by me and pictures given me by the patient on her phone, appears somewhat suspicious for erythema nodosum, and I am concerned that this may been triggered with subsequent rashes either due to erythema multiforme or simply a drug rash. Because of this, I am recommending the patient go off her control pills, as she is 45 years old and no longer is at risk for conception which is the reason why she takes it. I also suggest she goes off her antibiotics at this time as there is no evidence of cellulitis. I am going to give her another loading dose of Solu-Medrol, Pepcid and Benadryl here, and then maintain her on a 5-day course of Pepcid Benadryl and prednisone. The hope is that this will improve her symptoms. She has an appoint with infectious disease in several days and I am hoping that by that time the rash may be significant improved. Notes reviewed from ID/ Dr Pacheco (04/2021), RAMOS Knowles: Patient seen, known history of hypothyroidism, and on OCP, She is presenting with >3 weeks of rashes which started from the legs, and then spread to the entire body, with some vesicles, and associated itching. Patient since then have been to the ER, and doctors, including the engineering consultant, she had been on keflex, bactrim, doxycycline, and steroid. And also she was taken off her OCP for the birthcontrol pills?. Patient denied any history of fever, no chills, no insect bites. No history of STD, no history of swimming, no lymph nodes., no oral involvement Rashes have started to improve since she had been on those therapies, and on stopping the OCP. Again on 05/12/2021: Patient in clinic for a follow up and lab discussion. She had developed some rashes in her upper extremities, and she was able to clear it with a steroid cream. Patient denied any fever, no chills, and no night sweats, no diarrhea. Patient with 1: Dermatitis, ?Allergy ? Medications, 2; Pruritus improved. 3: Leucocytosis, likely due to steriod use. Plans: I have reviewed labs with patient for std screening for now, rpr, and negative results. HIV, hepatitis. Negative results. Follow up prn. Ok to repeat cbc. Patient s/p antibiotic, and steroid po. Patient not on these any longer : famotidine, and prednisone. -Personal history of skin cancer: No -History of immunosuppression: No -History of blistering sunburns:Yes -Family history of skin cancer: No SOC: Social History Tobacco Use - Smoking status: Never Smoker - Smokeless tobacco: Never Used Substance Use Topics - Alcohol use: Yes Comment: Occasional - Drug use: No MEDS: (more content not included)... [facility] SURGICAL PATHOLOGYon 022 CASE REPORT [facility] Comment on above: Order Comment: Kashmir bull Type: TISSUE SPECIMEN Ordering Facility: [facility] Address: [address] [place] [address] Result Comment: Surg ical Pathology Report Case: [id number] Authorizing Provider: Mojgan Rueda PA-C Collected: 04/28/2022 03:00 PM Ordering Location: [facility] [place] Received: 04/28/2022 04:56 PM Pathologist: Ethan Nieves MD Specimen: SKIN PUNCH BIOPSY, A) Left anterior lower leg Performed By: #### S #### [facility] CLIA [id number] [address] [place] [address] [place] CLINICAL HISTORY r/o ACD vs systemic lupus vs other [facility] Comment on above: Order Comment: Kashmir bull Type: TISSUE SPECIMEN Ordering Facility: [facility] Address: [address] [place] [address] Performed By: #### S #### [facility] CLIA [id number] [address] [place] [address] [place] DIAGNOSIS COMMENT Normal [facility] Comment on above: Order Comment: Kashmir bull Type: TISSUE SPECIMEN Ordering Facility: [facility] Address: [address] [place] [address] Result Comment: A. H istologic sections demonstrate mild basal epidermal vacuolization. In the dermis, there is an accompanying dense perivascular lymphocytic infiltrate with rare eosinophils. These findings are nonspecific. The differential diagnosis includes a viral exanthem and drug eruption. Clinical correlation is recommended. Performed By: #### S #### [facility] CLIA [id number] [address] [place] [address] FINAL DIAGNOSIS [facility] Comment on above: Order Comment: Speci men Type: TISSUE SPECIMEN Ordering Facility: [facility] Address: [address] [place] [address] Result Comment: Massiel. Christian powell, left anterior lower leg, punch biopsy: - Consistent with dermal hypersensitivity reaction (see comment). SDB/MW/mm 04/29/2022 Performed By: #### S #### [facility] CLIA [id number] [address] [place] [address] FINAL PERFORMING LAB [facility] Comment on above: Order Comment: Speci men Type: TISSUE SPECIMEN Ordering Facility: [facility] Address: [address] [place] [address] Result Comment: Diag nostic interpretation performed at [place] [address] CLIA# [id number] Concrete Hopper Operator: Tyree Everett M.D. Performed By: #### S #### [facility] CLIA [id number] [address] [place] [address] GROSS DESCRIPTION Normal [facility] Comment on above: Order Comment: Speci men Type: TISSUE SPECIMEN Ordering Facility: [facility] Address: [address] [place] [address] Result Comment: Avtar POWELL PUNCH BIOPSY. Received in formalin is a cylindrical segment of skin and subcutaneous tissue measuring 0.4 x 0.4 x 0.4 cm. The specimen is bisected. Totally submitted in one cassette. Gross examination performed at [address] [place] [address] TTN 04/29/2022 12:39 AM Performed By: #### S #### [facility] CLIA [id number] [address] [place] [address] [id number] [address] [place] Serum or plasma severe acute respiratory syndrome coronavirus 2 (SARS-CoV-2) IgG antion 04-11-2022 SARS-CoV-2 (COVID-19) IgG IA Ql > 150.00 INDEX 0.00-0.99 [facility] Work Phone: Comment on above: It is yet undetermin ed what level of antibody to SARS-CoV-2 spike protein correlates to immunity against developing symptomatic SARS-CoV-2 disease. Studies are underway to measure the quantitative levels of specific SARS-CoV-2 antibodies following vaccination. Such studies will provide valuable insights into the correlation between protection from vaccination and antibody levels. Interpretation: Negative < 1.0 Positive > or = 1.0Method: SIEMENS InSequent IM SARS SEMI-QUANT IGG ABS * This test has not been reviewed by the FDA* Use of this test is limited to laboratories that are certified under Clinical Laboratory Improvement Amendments of 1988 (CLIA) to perform high-complexity testing.* Negative results do not preclude acute SARS-CoV-2 infection. If acute infection is suspected, direct testing for SARS-CoV-2 is necessary.* Results from antibody testing should not be used to diagnose or exclude acute SARS-CoV-2 infection.* Positive results may be due to past or present infection with [id number] coronovirus strains, such as coronavirus HKU1, NL63, OC43, or 229E. 24 hour urine alpha 2 globul in/total protein ratio by electrophoresis (mass fraction)on 03-25-2022 Alpha 2 globulin Elph (24H U) [Mass fraction] 21.8 % . [facility] Work Phone: 24 hour urine beta globulin/ total protein ratio by electrophoresis (mass fraction)on 03-25-2022 Beta globulin Elph (24H U) [Mass fraction] 30.0 % . [facility] Work Phone: 24 hour urine gamma globulin /total protein ratio by electrophoresis (mass fraction)on 03-25-2022 Gamma globulin Elph (24H U) [Mass fraction] 14.4 % . [facility] Work Phone: Bilirubin Test strip Ql (U)o n 03-25-2022 Bilirubin Ql (U) Negative Negative [facility] Work Phone: Ketones Test strip Ql (U)on 03-25-2022 Ketones Ql (U) Negative Negative [facility] Work Phone: Nitrite Test strip Ql (U)on 03-25-2022 Nitrite Ql (U) Positive Negative [facility] Work Phone: No Panel Informationon 03-25 Hepatitis B Surface Antigen Non-Reactive Nonreactive [facility] Work Phone: Hepatitis C Antibody Non-Reactive Nonreactive [facility] Work Phone: Comment on above: Non Reactive: < 0.8 Equivocal: >/= 0.8 to < 1.0 Reactive: >/= 1.0The CDC recommends that a reactive/equivocal HCV antibody result be followed up by the HCV Nucleic Acid Amplificationtest (316546) Miscellaneous Test See comment [facility] Work Phone: Comment on above: TEST RESULT LIMITSAn tiproteinase 3 (UT-3) Abs <3.5 U/mL 0.0-3.5 _ TESTING PERFORMED AT [facility]. ORIGINAL REPORT ON FILE IN LAB CONTAINS ADDITIONAL TEST SITE INFORMATION. Urine Immunofixation PEP Note Comment . [facility] Work Phone: Comment on above: Protein electrophore sis scan will follow via computer,mail, or checkroom attendant delivery. Protein Test strip Ql (U)on 03-25-2022 Protein Ql (U) Negative Negative [facility] Work Phone: Serum cyclic citrullinated p eptide IgG antibody assay (units/volume)on 03-25-2022 Cyclic citrullinated peptide IgG Qn 10 units 0-19 [facility] Work Phone: Comment on above: Negative <20 Weak po sitive 20 - 39 Moderate positive 40 - 59 Strong positive >59Performed at: [facility] [id number] [place], [place] [id number] Director: Isrrael Taveras PhD, Phone: [phone] at: [email or web address] [address] [id number] Director: Ceferino Kitchen MD, Phone: [phone] Serum hepatitis B virus surf thelma antibody IgG detectionon 03-25-2022 HBV surface IgG Ql (S) Reactive [facility] Work Phone: Comment on above: Non Reactive: Incons istent with immunity less than <10 mIU/mL Reactive: Consistent with immunity greater than or equal to 10 mIU/mL Urine albumin/total protein mass ratio by electrophoresison 03-25-2022 Albumin Elph (U) [Mass fraction] 26.8 % . [facility] Work Phone: Urine alpha 1 globulin/total protein ratio by electrophoresis (mass fraction)on 03-25-2022 Alpha 1 globulin Elph (U) [Mass fraction] 7.1 % . [facility] Work Phone: Urine blood detectionon 02-26 RBC Ql (U) 10 /ul Negative [facility] Work Phone: Urine clarityon 03-25-2022 Clarity (U) Clear Clear [facility] Work Phone: Urine color determinationon 03-25-2022 Color (U) Yellow Yellow [facility] Work Phone: Urine creatinine measurement (mass/volume)on 03-25-2022 Creatinine (U) [Mass/Vol] 53.80 mg/dL NO RANGE EST. [facility] Work Phone: Urine glucose detectionon Glucose Ql (U) Normal mg/dl Normal [facility] Work Phone: Urine leukocyte esterase det ection by dipstickon 03-25-2022 Leukocyte esterase Test strip Ql (U) 100 /ul Negative [facility] Work Phone: Urine monoclonal protein/tot al protein mass ratio by electrophoresison 03-25-2022 Protein.monoclonal Elph (U) [Mass fraction] See comment [facility] Work Phone: Comment on above: NOT OBSERVED Urine pHon 03-25-2022 pH (U) 6.0 [pH] 5.0 - 8.0 [facility] Work Phone: Urine protein measurement (m ass/volume)on 03-25-2022 Protein (U) [Mass/Vol] mg/dL 0.0-11.[address] [facility] Work Phone: Protein (U) [Mass/Vol] 14.6 mg/dL Not Estab. [facility] Work Phone: Urine protein/creatinine mas s ratioon 03-25-2022 Protein/Creatinine (U) [Mass ratio] 110 mg/g CRE 0-200 [facility] Work Phone: Urine specific gravity measu rementon 03-25-2022 Specific gravity (U) [Rel density] 1.010 1.002-1.030 [facility] Work Phone: Urobilinogen Auto test strip Ql (U)on 03-25-2022 Urobilinogen Ql (U) Normal mg/dl Normal [facility] Work Phone: Absolute lymphocyte counton 03-23-2022 Lymphocytes Auto (Unsp spec) [#/Vol] 1.80 10*3/uL 0.83-4.51 [facility] Work Phone: Basophil percentageon 2021 Basophils/100 WBC (Bld) 1.1 % 0-1 [facility] Work Phone: [phone] Chloride [Moles/Vol] 107 mmol/L 98-107 [facility] Work Phone: [phone] Eosinophils/100 WBC (Bld) 7.3 % 0-5 [facility] Work Phone: [phone] Glucose [Mass/Vol] 91 mg/dL 74-106 [facility] Work Phone: [phone] Neutrophils (Bld) [#/Vol] 2.7 10*3/uL 2.0-7.7 [facility] Work Phone: [phone] Neutrophils/100 WBC (Bld) 47.6 % 47-70 [facility] Work Phone: [phone] Potassium [Moles/Vol] 4.1 mmol/L 3.5-5.1 [facility] Work Phone: [phone] Sodium [Moles/Vol] 140 mmol/L 136-145 [facility] Work Phone: [phone] WBC (Bld) [#/Vol] 5.6 10*3/uL 4.4-11.0 [facility] Work Phone: [phone] Blood erythrocytes count (nu mber/volume)on 03-23-2022 RBC (Bld) [#/Vol] 4.66 10*6/uL 4.2-5.4 [facility] Work Phone: [phone] Blood hemoglobin measurement (mass/volume)on 03-23-2022 Hemoglobin (Bld) [Mass/Vol] 14.3 g/dL 12.0-15.0 [facility] Work Phone: Blood lymphocytes/100 leukoc yteson 03-23-2022 Lymphocytes/100 WBC (Bld) 31.9 % 19-41 [facility] Work Phone: Blood monocytes/100 leukocyt eson 03-23-2022 Monocytes/100 WBC (Bld) 11.9 % 0-10 [facility] Work Phone: Blood platelet mean volumeon 03-23-2022 Platelet mean volume (Bld) [Entitic vol] 11.6 fL 6.2-12.0 [facility] Work Phone: Determination of erythrocyte mean corpuscular volume (MCV)on 03-23-2022 MCV (RBC) [Entitic vol] 92.9 fL 81-99 [facility] Work Phone: Erythrocyte sedimentation ra orin 03-23-2022 ESR (Bld) [Velocity] 4 mm/h 0-30 [facility]: Hematocrit Auto (Bld) [Volum e fraction]on 03-23-2022 Hematocrit (Bld) [Volume fraction] 43.3 % 37-47 [facility] Work Phone: Interpretation of Borrelia b urgdorferi antibody assayon 03-23-2022 B. burgdorferi Ab (S) [Interp] REF LAB [facility] Work Phone: Laboratory - Chemistry and C hemistry - challengeon 03-23-2022 CO2 [Moles/Vol] 28.0 mmol/L 21.0-32.0 [facility] Work Phone: Urea nitrogen/Creatinine [Mass ratio] 15.3 mg/mg 10-20 [facility] Work Phone: Laboratory - Hematology and Cell countson 03-23-2022 Erythrocyte distribution width (RBC) [Entitic vol] 40.5 fL 35.1-43.9 [facility] Work Phone: Erythrocyte distribution width (RBC) [Ratio] 11.9 % 11.6-14.6 [facility] Work Phone: Immature granulocytes/100 WBC (Bld) 0.200 % 0.0-0.9 [facility] Work Phone: Comment on above: IG% - Immature Granu locytes (promyelocytes, myelocytes and metamyelocytes) > 1% indicates that a LEFT SHIFT is Present. MCH (RBC) [Entitic mass] 30.7 pg 27.0-32.0 [facility] Work Phone: Nucleated RBC/100 WBC (Bld) [Ratio] 0 % 0-5 [facility] Work Phone: MCHC Auto (RBC) [Mass/Vol]on 03-23-2022 MCHC (RBC) [Mass/Vol] 33.0 g/dL 32-36 [facility] Work Phone: No Panel Informationon 03-23 Anti-Nuclear Antibody Screen Negative Negative [facility] Work Phone: Comment on above: Performed at: [place] [id number] Director: Isrrael aTveras PhD, Phone: [phone] Estimated GFR (MDRD) Amer 100 mL/min >60 [facility] Work Phone: Comment on above: GFR Calc Estimated GFR (MDRD) Non-Af Amer 83 mL/min >60 [facility] Work Phone: Comment on above: Non- GFR Calc Platelets bldon 03-23-2022 Platelets (Bld) [#/Vol] 256 10*3/uL 150-450 [facility] Work Phone: Serum or plasma C reactive p rotein measurement (mass/volume)on 03-23-2022 CRP [Mass/Vol] mg/L 0.0-3.0 [facility] Work Phone: Comment on above: C-Reactive Protein ( CRP) provides useful information for thediagnosis, therapy and monitoring of inflammatory processesand associated diseases. For the evaluation of Relative Riskfor Cardiovascular Disease, a High Sensitivity CRP (HSCRP)should be ordered. Serum or plasma calcium alem urement (mass/volume)on 03-23-2022 Calcium [Mass/Vol] 9.0 mg/dL 8.5-10.1 [facility] Work Phone: Serum or plasma creatinine m easurement (mass/volume)on 03-23-2022 Creatinine [Mass/Vol] 0.79 mg/dL 0.55-1.02 [facility] Work Phone: Comment on above: The validity of the calculated GFR & GFRAA in patients over 70 years has not been determined. Clinical correlation is essential. Serum or plasma urea nitroge n measurement (mass/volume)on 03-23-2022 Urea nitrogen [Mass/Vol] 12 mg/dL 7-18 [facility] Work Phone: Serum rheumatoid factor dete ctionon 03-23-2022 Rheumatoid factor Ql (S) < 10.0 IU/mL <15 [facility] Work Phone: Thin prep Papanicolaou smear with manual screeningon 03-23-2022 Thin prep Papanicolaou smear with manual screening 5 5-15 [facility] Work Phone: Thin prep Papanicolaou smear with manual screening See comment [facility] Work Phone: Comment on above: TEST RESULT LIMITSLy me Disease Serology w/Reflex Lyme Total Antibody EIA Negative NegativeNo laboratory evidence of infection with B. burgdorferi (Lyme disease). Negative results may occur in patients recently infected (greater than or equal to 14 days) with B. burgdorferi. If recent infection is suspected, repeat testing on a new sample collected in 7 to 14 days isrecommended. [facility] ORIGINAL REPORT ON FILE IN LAB CONTAINS ADDITIONAL TEST SITE INFORMATION. CBCon 05-12-2021 ABSOLUTE BAS 0.1 10*3/uL Normal 0.0-0.2 [facility] Comment on above: Performed By: #### A CBC #### Testing performed at [address] [address] ABSOLUTE EOS 0.30 10*3/uL Normal 0.0-0.7 [facility] Comment on above: Performed By: #### A CBC #### Testing performed at [address] [address] ABSOLUTE NEUTROPHIL COUNT 4.6 10*3/uL Normal 1.4-6.5 [facility] Comment on above: Performed By: #### A CBC #### Testing performed at [address] [address] Basophils/100 WBC (Bld) 1.4 % Normal 0.0-2.0 [facility] Comment on above: Performed By: #### A CBC #### Testing performed at [address] [address] DTYPE AUTO DIFF Normal [facility] Comment on above: Performed By: #### A CBC #### Testing performed at [address] [address] Eosinophils/100 WBC (Bld) 3.5 % Normal 0.0-11.0 [facility] Comment on above: Performed By: #### A CBC #### Testing performed at [address] [address] Lymphocytes (Bld) [#/Vol] 1.90 10*3/uL Normal 1.2-3.4 [facility] Comment on above: Performed By: #### A CBC #### Testing performed at [address] [address] Lymphocytes/100 WBC (Bld) 24.4 % Normal 20.0-55.0 [facility] Comment on above: Performed By: #### A CBC #### Testing performed at [address] [address] Monocytes (Bld) [#/Vol] 0.8 10*3/uL High 0.0-0.7 [facility] Comment on above: Performed By: #### A CBC #### Testing performed at [address] [address] Monocytes/100 WBC (Bld) 10.6 % High 0.0-10.0 [facility] Comment on above: Performed By: #### A CBC #### Testing performed at [address] [address] Neutrophils/100 WBC (Bld) 60.1 % Normal 37.0-75.0 [facility] Comment on above: Performed By: #### A CBC #### Testing performed at [address] [address] Erythrocyte distribution width (RBC) [Ratio] 13.1 % Normal 11.5-14.5 [facility] Comment on above: Performed By: #### A CBC #### Testing performed at [address] [address] Hematocrit (Bld) [Volume fraction] 46.4 % Normal 36.0-48.0 [facility] Comment on above: Performed By: #### A CBC #### Testing performed at [address] [address] Hemoglobin (Bld) [Mass/Vol] 15.2 g/dL Normal 12.0-16.0 [facility] Comment on above: Performed By: #### A CBC #### Testing performed at [address] [address] MCH (RBC) [Entitic mass] 31.9 pg Normal 26.0-35.0 [facility] Comment on above: Performed By: #### A CBC #### Testing performed at [address] [address] MCHC (RBC) [Mass/Vol] 32.7 g/dL Normal 27.0-37.0 [facility] Comment on above: Performed By: #### A CBC #### Testing performed at [address] [address] MCV (RBC) [Entitic vol] 97.5 fL Normal 80.0-100.0 [facility] Comment on above: Performed By: #### A CBC #### Testing performed at [address] [address] Platelet mean volume (Bld) [Entitic vol] 9.1 fL Normal 7.4-11.0 [facility] Comment on above: Performed By: #### A CBC #### Testing performed at [address] [address] Platelets (Bld) [#/Vol] 289 10*3/uL Normal 130.0-400.0 [facility] Comment on above: Performed By: #### A CBC #### Testing performed at [address] [address] RBC (Bld) [#/Vol] 4.76 10*6/uL Normal 4.0-5.4 [facility] Comment on above: Performed By: #### A CBC #### Testing performed at [address] [address] WBC (Bld) [#/Vol] 7.6 10*3/uL Normal 3.6-11.0 [facility] Comment on above: Performed By: #### A CBC #### Testing performed at [address] [address] CBC, EDIF, PLATELETOrdered B y: Clayton Pacheco on 05-12-2021 ABSOLUTE BASOPHIL COUNT 0.1 10*3/uL 0.0 - 0.2 10*3/uL [facility] Basophils/100 WBC (Bld) 1.4 % 0.0 - 2.0 % [facility] Differential cell count method Nom (Bld) AUTO DIFF % [facility] Eosinophils (Bld) [#/Vol] 0.30 10*3/uL 0.0 - 0.7 10*3/uL [facility] Eosinophils/100 WBC (Bld) 3.5 % 0.0 - 11.0 % [facility] Erythrocyte distribution width (RBC) [Ratio] 13.1 % 11.5 - 14.5 % [facility] Hematocrit (Bld) [Volume fraction] 46.4 % 36.0 - 48.0 % [facility] Hemoglobin (Bld) [Mass/Vol] 15.2 g/dL [facility] Interpretation and review of laboratory results Abnormal [facility] Lymphocytes (Bld) [#/Vol] 1.90 10*3/uL 1.2 - 3.4 10*3/uL [facility] Lymphocytes/100 WBC (Bld) 24.4 % 20.0 - 55.0 % [facility] MCH (RBC) [Entitic mass] 31.9 pg 26.0 - 35.0 PG [facility] MCHC (RBC) [Mass/Vol] 32.7 g/dL [facility] MCV (RBC) [Entitic vol] 97.5 fL [facility] Monocytes (Bld) [#/Vol] 0.8 10*3/uL High 0.0 - 0.7 10*3/uL [facility] Monocytes/100 WBC (Bld) 10.6 % High 0.0 - 10.0 % [facility] Neutrophils (Bld) [#/Vol] 4.6 10*3/uL 1.4 - 6.5 10*3/uL [facility] Neutrophils/100 WBC (Bld) 60.1 % 37.0 - 75.0 % [facility] Platelet mean volume (Bld) [Entitic vol] 9.1 fL [facility] Platelets (Bld) [#/Vol] 289 10*3/uL 130.0 - 400.0 10*3/uL [facility] RBC (Bld) [#/Vol] 4.76 10*6/uL 4.0 - 5.4 10*6/uL [facility] WBC (Bld) [#/Vol] 7.6 10*3/uL 3.6 - 11.0 10*3/uL [facility] RPRon 04-30-2021 Reagin Ab RPR Ql (S) Non-Reactive Normal NONREACTIVE A [facility] Comment on above: Result Comment: Test ing performed at [place] [address] Performed By: #### C MPF, GHIV, ALDH, ESR, ACBC #### Testing performed at [place] [id number] #### RPR #### [place] [address] CBCon 04-29-2021 DTYPE MANUAL DIFF Normal [facility] Comment on above: Performed By: #### C MPF, GHIV, ALDH, ESR, ACBC #### Testing performed at [place] [id number] #### RPR #### Testing performed at [facility] [place] [facility] [address] [place] [address] Eosinophils/100 WBC (Bld) 2 % Normal 0.0-11.0 [facility] Comment on above: Performed By: #### C MPF, GHIV, ALDH, ESR, ACBC #### Testing performed at [address] [address] #### RPR #### Testing performed at [address] [address] Lymphocytes/100 WBC (Bld) 7 % Low 20.0-55.0 [facility] Comment on above: Performed By: #### C MPF, GHIV, ALDH, ESR, ACBC #### Testing performed at [address] [address] #### RPR #### Testing performed at [address] [address] Monocytes/100 WBC (Bld) 12 % High 0.0-10.0 [facility] Comment on above: Performed By: #### C MPF, GHIV, ALDH, ESR, ACBC #### Testing performed at [address] [address] #### RPR #### Testing performed at [address] [address] Neutrophils/100 WBC (Bld) 79 % High 37.0-75.0 [facility] Comment on above: Performed By: #### C MPF, GHIV, ALDH, ESR, ACBC #### Testing performed at [address] [place] [address] #### RPR #### Testing performed at [address] [place] [address] PLATELET COMMENT ADEQUATE Normal [facility] Comment on above: Performed By: #### C MPF, GHIV, ALDH, ESR, ACBC #### Testing performed at [address] [place] [address] #### RPR #### Testing performed at [address] [place] [address] RBC morphology finding Nom (Bld) NORMAL Normal [facility] Comment on above: Performed By: #### C MPF, GHIV, ALDH, ESR, ACBC #### Testing performed at [address] [address] #### RPR #### Testing performed at [address] [address] CBCon 04-28-2021 Erythrocyte distribution width (RBC) [Ratio] 12.6 % Normal 11.5-14.5 [facility] Comment on above: Performed By: #### C MPF, GHIV, ALDH, ESR, ACBC #### Testing performed at [address] [address] #### RPR #### [place] [address] Hematocrit (Bld) [Volume fraction] 48.2 % High 36.0-48.0 [facility] Comment on above: Performed By: #### C MPF, GHIV, ALDH, ESR, ACBC #### Testing performed at [address] [address] #### RPR #### [place] [address] Hemoglobin (Bld) [Mass/Vol] 16.5 g/dL High 12.0-16.0 [facility] Comment on above: Performed By: #### C MPF, GHIV, ALDH, ESR, ACBC #### Testing performed at [address] [address] #### RPR #### Testing performed at [address] [address] MCH (RBC) [Entitic mass] 32.4 pg Normal 26.0-35.0 [facility] Comment on above: Performed By: #### C MPF, GHIV, ALDH, ESR, ACBC #### Testing performed at [address] [address] #### RPR #### Testing performed at [address] [address] MCHC (RBC) [Mass/Vol] 34.3 g/dL Normal 27.0-37.0 [facility] Comment on above: Performed By: #### C MPF, GHIV, ALDH, ESR, ACBC #### Testing performed at [address] [address] #### RPR #### Testing performed at [address] [address] MCV (RBC) [Entitic vol] 94.6 fL Normal 80.0-100.0 [facility] Comment on above: Performed By: #### C MPF, GHIV, ALDH, ESR, ACBC #### Testing performed at [address] [place] [address] #### RPR #### Testing performed at [address] [address] Platelet mean volume (Bld) [Entitic vol] 9.1 fL Normal 7.4-11.0 [facility] Comment on above: Performed By: #### C MPF, GHIV, ALDH, ESR, ACBC #### Testing performed at [address] [address] #### RPR #### Testing performed at [address] [address] Platelets (Bld) [#/Vol] 263 10*3/uL Normal 130.0-400.0 [facility] Comment on above: Performed By: #### C MPF, GHIV, ALDH, ESR, ACBC #### Testing performed at [address] [place] [address] #### RPR #### Testing performed at [address] [address] RBC (Bld) [#/Vol] 5.10 10*6/uL Normal 4.0-5.4 [facility] Comment on above: Performed By: #### C MPF, GHIV, ALDH, ESR, ACBC #### Testing performed at [address] [address] #### RPR #### Testing performed at [address] [address] WBC (Bld) [#/Vol] 15.3 10*3/uL High 3.6-11.0 [facility] Comment on above: Performed By: #### C MPF, GHIV, ALDH, ESR, ACBC #### Testing performed at [address] [address] #### RPR #### Testing performed at [address] [address] CMP FASTINGon 04-28-2021 A:G RATIO 1.1 RATIO Low 1.3-2.2 [facility] Comment on above: Performed By: #### C MPF, GHIV, ALDH, ESR, ACBC #### Testing performed at [address] [address] #### RPR #### Testing performed at [address] [address] ALBUMIN 3.9 G/dl Normal 3.5-5.0 [facility] Comment on above: Performed By: #### C MPF, GHIV, ALDH, ESR, ACBC #### Testing performed at [address] [address] #### RPR #### Testing performed at [address] [address] ALP [Catalytic activity/Vol] 61 U/L Normal 38-126 [facility] Comment on above: Performed By: #### C MPF, GHIV, ALDH, ESR, ACBC #### Testing performed at [address] [address] #### RPR #### Testing performed at [address] [place] [address] ALT [Catalytic activity/Vol] 54 U/L Normal 14-54 [facility] Comment on above: Performed By: #### C MPF, GHIV, ALDH, ESR, ACBC #### Testing performed at [address] [address] #### RPR #### Testing performed at [address] [address] AST [Catalytic activity/Vol] 23 U/L Normal 15-41 [facility] Comment on above: Performed By: #### C MPF, GHIV, ALDH, ESR, ACBC #### Testing performed at [address] [address] #### RPR #### [place] [address] Bilirubin [Mass/Vol] 0.5 mg/dL Normal 0.2-1.2 [facility] Comment on above: Performed By: #### C MPF, GHIV, ALDH, ESR, ACBC #### Testing performed at [address] [address] #### RPR #### [place] [address] Creatinine [Mass/Vol] 0.77 mg/dL Normal 0.52-1.04 [facility] Comment on above: Performed By: #### C MPF, GHIV, ALDH, ESR, ACBC #### Testing performed at [address] [address] #### RPR #### [place] [address] EST. GFR, >60 Normal [facility] Comment on above: Performed By: #### C MPF, GHIV, ALDH, ESR, ACBC #### Testing performed at [address] [address] #### RPR #### [place] [address] EST. GFR,Non >60 Normal [facility] Comment on above: Performed By: #### C MPF, GHIV, ALDH, ESR, ACBC #### Testing performed at [address] [address] #### RPR #### [place] [address] GFR Information Average GFR for 40-4 9 years old = 99. Normal [facility] Comment on above: Result Comment: Criminal Judge oziel Kidney disease, GFR = <60. Kidney failure, GFR = <15. The GFR estimate is not adjusted for extreme body surface area or acute process, nor has it been validated for women or ethnic groups other than and . Performed By: #### C MPF, GHIV, ALDH, ESR, ACBC #### Testing performed at [address] [address] #### RPR #### Testing performed at [address] [place] [address] Protein [Mass/Vol] 7.3 g/dL Normal 6.3-8.2 [facility] Comment on above: Performed By: #### C MPF, GHIV, ALDH, ESR, ACBC #### Testing performed at [address] [address] #### RPR #### Testing performed at [address] [address] Urea nitrogen [Mass/Vol] 15 mg/dL Normal 7-20 [facility] Comment on above: Performed By: #### C MPF, GHIV, ALDH, ESR, ACBC #### Testing performed at [address] [address] #### RPR #### Testing performed at [address] [address] Calcium [Mass/Vol] 9.3 mg/dL Normal 8.4-10.2 [facility] Comment on above: Performed By: #### C MPF, GHIV, ALDH, ESR, ACBC #### Testing performed at [address] [address] #### RPR #### Testing performed at [address] [address] Chloride [Moles/Vol] 101 mmol/L Normal 98-107 [facility] Comment on above: Performed By: #### C MPF, GHIV, ALDH, ESR, ACBC #### Testing performed at [address] [address] #### RPR #### Testing performed at [address] [place] [address] CO2 [Moles/Vol] 30 mmol/L Normal 22-30 [facility] Comment on above: Performed By: #### C MPF, GHIV, ALDH, ESR, ACBC #### Testing performed at [address] [address] #### RPR #### Testing performed at [address] [address] Glucose [Mass/Vol] 99 mg/dL Normal 70-100 [facility] Comment on above: Result Comment: NORMAL <100 mg/dL PREDIABETES 101-126 mg/dL DIABETES 126 mg/dL or higher Performed By: #### C MPF, GHIV, ALDH, ESR, ACBC #### Testing performed at [address] [address] #### RPR #### Testing performed at [address] [address] Potassium [Moles/Vol] 3.6 mmol/L Normal 3.5-5.1 [facility] Comment on above: Performed By: #### C MPF, GHIV, ALDH, ESR, ACBC #### Testing performed at [address] [address] #### RPR #### Testing performed at [address] [address] Sodium [Moles/Vol] 139 mmol/L Normal 136-145 [facility] Comment on above: Performed By: #### C MPF, GHIV, ALDH, ESR, ACBC #### Testing performed at [address] [address] #### RPR #### Testing performed at [address] [address] COMPREHENSIVE METABOLIC PANE LOrdered By: Clayton Pacheco on 04-28-2021 Albumin [Mass/Vol] 3.9 G/dl 3.5 - 5.0 G/dl [facility] Albumin/Globulin [Mass ratio] 1.1 {ratio} Low [facility] ALP [Catalytic activity/Vol] 61 U/L [facility] ALT [Catalytic activity/Vol] 54 U/L [facility] AST [Catalytic activity/Vol] 23 U/L [facility] Bilirubin [Mass/Vol] 0.5 mg/dL [facility] Calcium [Mass/Vol] 9.3 mg/dL [facility] Chloride [Moles/Vol] 101 mmol/L [facility] CO2 [Moles/Vol] 30 mmol/L [facility] Creatinine [Mass/Vol] 0.77 mg/dL [facility] GFR COMMENT Average GFR for 40-4 9 years old = 99. [facility] Comment on above: Chronic Kidney disea se, GFR = <60. Kidney failure, GFR = <15. The GFR estimate is not adjusted for extreme body surface area or acute process, nor has it been validated for women or ethnic groups other than and . GFR/1.73 sq M.predicted among blacks MDRD (S/P/Bld) [Vol rate/Area] mL/min/{1.73_m2} ml/min/1.73sq .m [facility] GFR/1.73 sq M.predicted among non-blacks MDRD (S/P/Bld) [Vol rate/Area] mL/min/{1.73_m2} ml/min/1.73sq .m [facility] Glucose post fast [Mass/Vol] 99 mg/dL [facility] Comment on above: NORMAL <100 mg/dL PREDIABETES 101-126 mg/dL DIABETES 126 mg/dL or higher Interpretation and review of laboratory results Abnormal [facility] Potassium [Moles/Vol] 3.6 mmol/L [facility] Protein [Mass/Vol] 7.3 g/dL [facility] Sodium [Moles/Vol] 139 mmol/L [facility] Urea nitrogen [Mass/Vol] 15 mg/dL [facility] ESRon 04-28-2021 ESR (Bld) [Velocity] 2 mm/h Normal 0-15 [facility] Comment on above: Performed By: #### C MPF, GHIV, ALDH, ESR, ACBC #### Testing performed at [facility] [address] [place] [address] #### RPR #### Testing performed at [facility] [address] [place] [address] HEP PANEL A,B,Con 04-28-2021 HEP A AB TOTAL Negative Normal NEGATIVE [facility] Comment on above: Performed By: #### A HEPP #### Testing performed at [address] [address] HEP B CORE AB Negative Normal NEGATIVE [facility] Comment on above: Performed By: #### A HEPP #### Testing performed at [address] [place] [address] HEP B SURFACE AB Positive Normal POSITIVE [facility] Comment on above: Result Comment: Clinical Interpretation of Immune Status Negative: patient is considered to be not immune to infection with HBV Intermediate: unable to determine if anti-HBs is present at levels consistent with immunity Positive: anti-HBs detected, patient is considered to be immune to infection with HBV Performed By: #### A HEPP #### Testing performed at [address] [address] HEP C AB Negative Normal NEGATIVE [facility] Comment on above: Performed By: #### A HEPP #### Testing performed at [address] [address] HEP B SURFACE AG Negative Normal NEGATIVE [facility] Comment on above: Performed By: #### A HEPP #### Testing performed at [address] [address] HEPATITIS A, B, COrdered By: Clayton Pacheco on 04-28-2021 HBV surface Ag IA Ql Negative NEGATIVE [facility] Hep A AB (IGG + IGM) Negative NEGATIVE [facility] HEP B CORE AB,TOTAL(IGG+IGM) Negative NEGATIVE [facility] Hep B Surf AB Positive POSITIVE [facility] Comment on above: Clinical Interpretation of Immune Status Negative: patient is considered to be not immune to infection with HBV Intermediate: unable to determine if anti-HBs is present at levels consistent with immunity Positive: anti-HBs detected, patient is considered to be immune to infection with HBV HEP C AB Negative NEGATIVE [facility] HIV 1 AND 2 ANTIBODIESOrdere d By: Clayton Pacheco on 04-28-2021 HIV 1+2 Ab IA Ql Non-Reactive NONREACTIVE [facility] HIV 1,2 ABon 04-28-2021 HIV 1,2 Non-Reactive Normal NONREACTIVE [facility] Comment on above: Performed By: #### C MPF, GHIV, ALDH, ESR, ACBC #### Testing performed at [facility] [address] [place] [address] #### RPR #### Testing performed at [address] [address] LACTATE DEHYDROGENASEOrdered By: Clayton Pacheco on 04-28-2021 LDH [Catalytic activity/Vol] 129 U/L [facility] LDHon 04-28-2021 LDH 129 IU/L Normal 100-190 [facility] Comment on above: Performed By: #### C MPF, GHIV, ALDH, ESR, ACBC #### Testing performed at [place] [address] [place] [id number] #### RPR #### [place] [address] No Panel InformationOrdered By: Clayton Pacheco on 04-28-2021 [facility] SEDIMENTATION RATE, AUTOMATE DOrdered By: Clayton Pacheco on 04-28-2021 ESR (Bld) [Velocity] 2 mm/h [facility] URINALYSIS, MACROOrdered By: Clayton Pacheco on 04-28-2021 Bilirubin Ql (U) Negative NEGATIVE [facility] Clarity (U) CLEAR CLEAR [facility] Color (U) YELLOW YELLOW [facility] Glucose Test strip (U) [Mass/Vol] Negative NEGATIVE mg/dl [facility] Hemoglobin Ql (U) TRACE-LYSED Abnormal NEGATIVE [facility] Interpretation and review of laboratory results Abnormal [facility] Ketones (U) [Mass/Vol] Negative NEGAT GINGER mg/dl [facility] Leukocyte esterase Test strip Ql (U) Negative NEGATIVE [facility] Nitrite Ql (U) Negative NEGATIVE [facility] pH (U) 6.0 [pH] [facility] Protein Ql (U) Negative NEGATIVE mg/dl [facility] Specific gravity (U) [Rel density] 1.010 [facility] Urobilinogen (U) [Mass/Vol] 0.2 mg/dL [facility] URINE MACROSCOPICon 04-28-20 Bilirubin Ql (U) Negative Normal NEGATIVE [facility] Comment on above: Performed By: #### U PAARDISE, UMAC #### Testing performed at [address] [place] [address] Clarity (U) CLEAR Normal CLEAR [facility] Comment on above: Performed By: #### U PARADISE, UMAC #### Testing performed at [address] [place] [address] Color (U) YELLOW Normal YELLOW [facility] Comment on above: Performed By: #### U PARADISE, UMAC #### Testing performed at [address] [address] Glucose Ql (U) Negative Normal NEGATIVE [facility] Comment on above: Performed By: #### U PARADISE, UMAC #### Testing performed at [address] [address] pH (U) 6.0 [pH] Normal 5.0-7.0 [facility] Comment on above: Performed By: #### U PARADISE, UMAC #### Testing performed at [address] [place] [address] URINE HEMOGLOBIN TRACE-LYSED Abnormal NEGATIVE [facility] Comment on above: Performed By: #### U PARADISE, UMAC #### Testing performed at [address] [place] [address] URINE KETONE Negative Normal NEGATIVE [facility] Comment on above: Performed By: #### U PARADISE, UMAC #### Testing performed at [address] [place] [address] URINE LEUKOTEST Negative Normal NEGATIVE [facility] Comment on above: Performed By: #### U PARADISE, UMAC #### Testing performed at [address] [place] [address] URINE NITRATES Negative Normal NEGATIVE [facility] Comment on above: Performed By: #### U PARADISE, UMAC #### Testing performed at [address] [address] URINE SPEC GRAVITY 1.010 Normal 1.010-1.025 [facility] Comment on above: Performed By: #### U PARADISE, UMAC #### Testing performed at [address] [place] [address] URINE TOTAL PROTEIN Negative Normal NEGATIVE [facility] Comment on above: Performed By: #### U PARADISE, UMAC #### Testing performed at [address] [place] [address] Urobilinogen Qn (U) 0.2 {Genna'U}/dL Normal 0.2-1.0 [facility] Comment on above: Performed By: #### U PARADISE, UMAC #### Testing performed at [address] [address] URINE MICROSCOPICon 04-28-20 21 Bacteria LM.HPF (Urine sed) [#/Area] Negative Normal NEGATIVE [facility] Comment on above: Performed By: #### U PARADISE, UMAC #### Testing performed at [address] [address] CASTS NONE Normal NONE [facility] Comment on above: Performed By: #### U PARADISE, UMAC #### Testing performed at [address] [address] CRYSTAL NONE Normal NONE [facility] Comment on above: Performed By: #### U PARADISE, UMAC #### Testing performed at [address] [address] Epithelial cells LM Ql (Urine sed) NONE Normal [facility] Comment on above: Performed By: #### U PARADISE, UMAC #### Testing performed at [address] [address] Mucus Ql (Urine sed) Negative Normal NEGATIVE [facility] Comment on above: Performed By: #### U PARADISE, UMAC #### Testing performed at [address] [place] [address] URINE COMMENT CULTURE CRITERIA NOT MET, NO CULTURE PERFORMED. Normal [facility] Comment on above: Performed By: #### U PARADISE, UMAC #### Testing performed at [address] [place] [address] URINE RBC'S 1 TO 5 Normal NEGATIVE [facility] Comment on above: Performed By: #### U PARADISE, UMAC #### Testing performed at [address] [address] URINE WBC'S Negative Normal NEGATIVE [facility] [facility] Comment on above: Performed By: #### U [place], UMAC #### Testing performed at [address] [address] Lab Report: PAP I-G HPV Hi R iskon 06-27-2017 HPV HC,HGH RISK Negative Negative [facility] Office Visit: est annualon 0 06-20-2017 Fall risk assessment No [facility] Protein mass conc Done [facility] Tobacco smoking status NHIS Never [facility] Tobacco smoking status NHIS Never smoker [facility] Lab Report: CBC W/Diff, Auto matedon 11-10-2014 Absolute Neut 4.5 X10 3/UL 2.0-7.7 [facility] Basophils/100 WBC (Bld) 0.9 % 0-1 [facility] Eosinophils/100 WBC (Bld) 2.0 % 0-5 [facility] Hematocrit Volume Fraction (Bld) 43.7 % 37-47 [facility] Hemoglobin mass conc (Bld) 14.8 g/dL 12.0-15.0 [facility] Lymphocytes/100 WBC (Bld) 27.3 % 19-41 [facility] MCH Entitic mass (RBC) 31.9 pg 27.0-32.0 Bl [facility] MCHC mass conc (RBC) 33.9 G/GL 32-36 [facility] MCV Entitic volume (RBC) 94.2 fL 81-99 [facility] Monocytes/100 WBC (Bld) 9.1 % 0-10 [facility] Neutrophils/100 WBC (Bld) 60.6 % 47-70 [facility] Platelet mean volume Entitic volume (Bld) 10.8 fL 6.2-12.0 [facility] Platelets #/vol (Bld) 278 10*3/mm3 150-450 B [facility] RBC #/vol (Bld) 4.64 10*6/uL 4.2-5.4 [facility] WBC #/vol (Bld) 7.4 10*3/uL 4.4-11.0 [facility] Lab Report: ,Serum, hCG Quali.on 11-10-2014 HCGSQUAL Negative 0-9 Nonpreg [facility] Vital Signs Date Time Vital Sign Value Performing Clinician Facility 07-03-2025 08:54-0400 Body height 172.[address] Dimitry Sr MD Work Phone: 5(766)249-151186 [address] 07-03-2025 08:54-0400 Body mass index (BMI) [Ratio] 21.9 kg/m2 Dr. Dimitry rS MD Work Phone: 0(482)821-716144 [place] [address] 07-03-2025 08:54-0400 Body weight 65.[address] Dimitry Sr MD Work Phone: 6(597)143-106044 [place] [address] 07-03-2025 08:54-0400 Diastolic blood pressure 60 mm[Hg] Dr. Dimitry Sr MD Work Phone: 7(355)577-266344 [place] [address] 07-03-2025 08:54-0400 Heart rate 67 /min Dr. Dimitry Sr MD Work Phone: 1(097)785-805444 [place] [address] 07-03-2025 08:54-0400 SaO2% (BldA) [Mass fraction] 99 % Dr. Dimitry Sr MD Work Phone: 6(064)099-497844 [place] [address] 07-03-2025 08:54-0400 Systolic blood pressure 109 mm[Hg] Dr. Dimitry Sr MD Work Phone: 4(784)205-397744 [place] [address] 06-09-2025 09:08-0400 Body height 172.[address] Dimitry Sr MD Work Phone: 3(214)654-579644 [place] [address] 06-09-2025 09:04-0400 Body mass index (BMI) [Ratio] 21.9 kg/m2 Dr. Dimitry Sr MD Work Phone: 1(957)831-224644 [place] [address] 06-09-2025 09:04-0400 Body weight 65.[address] Dimitry Sr MD Work Phone: 1(357)548-682044 [place] [address] 06-09-2025 09:04-0400 Diastolic blood pressure 70 mm[Hg] Dr. Dimitry Sr MD Work Phone: 1(894)970-869644 [place] [address] 06-09-2025 09:04-0400 Systolic blood pressure 112 mm[Hg] Dr. Dimitry Sr MD Work Phone: [facility] 11-22-2023 09:40-0500 Body temperature 97.6 [degF] Dr. Dimitry Sr Work Phone: [facility] 11-22-2023 09:40-0500 Diastolic blood pressure 62 mm[Hg] Dr. Dimitry Sr Work Phone: 1(236)199-143751 [place] [address] 11-22-2023 09:40-0500 Heart rate 74 /min Dr. Dimitry Sr Work Phone: [facility] 11-22-2023 09:40-0500 Respiratory rate 16 /min Dr. Dimitry Sr Work Phone: [facility] 11-22-2023 09:40-0500 SaO2% (BldA) [Mass fraction] 97 % Dr. Dimitry Sr Work Phone: 3(370)726-694751 [place] [address] 11-22-2023 09:40-0500 Systolic blood pressure 94 mm[Hg] Dr. Dimitry Sr Work Phone: [facility] 11-22-2023 08:23-0500 Body height 172.[address] Dimitry Sr Work Phone: 2(892)228-786351 [place] [address] 11-22-2023 08:23-0500 Body mass index (BMI) [Ratio] 20.7 kg/m2 Dr. Dimitry Sr Work Phone: 9(113)340-675451 [place] [address] 11-22-2023 08:23-0500 Body weight [address] Dimitry Sr Work Phone: [facility] 09-20-2023 08:32-0400 Body mass index (BMI) [Ratio] 21.2 kg/m2 Dr. Dimitry Sr Work Phone: 7(772)698-283451 [place] [address] 09-20-2023 08:32-0400 Body weight 63.[address] Dimitry Sr Work Phone: 1(775)366-426951 [place] [address] 09-05-2023 14:22-0400 Body height 172.[address] Dimitry Sr Work Phone: 7(920)261-095751 [place] [address] 09-05-2023 14:22-0400 Body mass index (BMI) [Ratio] 21.2 kg/m2 Dr. Dimitry Sr Work Phone: [facility] 09-05-2023 14:22-0400 Body temperature 97.8 [degF] Dr. Dimitry Sr Work Phone: [facility] 09-05-2023 14:22-0400 Body weight 63.[address] Dimitry Sr Work Phone: [facility] 09-05-2023 14:22-0400 Diastolic blood pressure 72 mm[Hg] Dr. Dimitry Sr Work Phone: [facility] 09-05-2023 14:22-0400 Heart rate 68 /min Dr. Dimitry Sr Work Phone: [facility] 09-05-2023 14:22-0400 Respiratory rate 16 /min Dr. Dimitry Sr Work Phone: [facility] 09-05-2023 14:22-0400 SaO2% (BldA) [Mass fraction] 98 % Dr. Dimitry Sr Work Phone: [facility] 09-05-2023 14:22-0400 Systolic blood pressure 112 mm[Hg] Dr. Dimitry Sr Work Phone: [facility] 06-19-2023 08:48-0400 Body mass index (BMI) [Ratio] 21.6 kg/m2 Dr. Dimitry Sr Work Phone: [facility] 06-19-2023 08:48-0400 Body weight 64.[address] Dimitry Sr Work Phone: [facility] 06-19-2023 08:48-0400 Diastolic blood pressure 84 mm[Hg] Dr. Dimitry Sr Work Phone: [facility] 06-19-2023 08:48-0400 Systolic blood pressure 120 mm[Hg] Dr. Dimitry Sr Work Phone: [facility] 08-19-2022 09:50-0400 Body height 172.[address] Dimitry Sr Work Phone: [facility] Work Phone: 08-19-2022 09:50-0400 Body mass index (BMI) [Ratio] 20.9 kg/m2 Dr. Dimitry Sr Work Phone: [facility] Work Phone: 08-19-2022 09:50-0400 Body temperature 95.8 [degF] Dr. Dimitry Sr Work Phone: [facility] Work Phone: 08-19-2022 09:50-0400 Body weight 62.[address] Dimitry Sr Work Phone: [facility] Work Phone: 08-19-2022 09:50-0400 Diastolic blood pressure 78 mm[Hg] Dr. Dimitry Sr Work Phone: [facility] Work Phone: 08-19-2022 09:50-0400 Heart rate 66 /min Dr. Dimitry Sr Work Phone: [facility] Work Phone: 08-19-2022 09:50-0400 Respiratory rate 18 /min Dr. Dimitry Sr Work Phone: [facility] Work Phone: 08-19-2022 09:50-0400 SaO2% (BldA) [Mass fraction] 98 % Dr. Dimitry Sr Work Phone: [facility] Work Phone: 08-19-2022 09:50-0400 Systolic blood pressure 119 mm[Hg] Dr. Dimitry Sr Work Phone: [facility] Work Phone: 07-04-2022 12:55-0400 Body mass index (BMI) [Ratio] 21.2 kg/m2 Dr. Dimitry Sr Work Phone: [facility] Work Phone: 07-04-2022 12:55-0400 Body weight 63.[address] Dimitry Sr Work Phone: [facility] Work Phone: 07-04-2022 12:55-0400 Diastolic blood pressure 70 mm[Hg] Dr. Dimitry Sr Work Phone: [facility] Work Phone: 07-04-2022 12:55-0400 Systolic blood pressure 118 mm[Hg] Dr. Dimitry Sr Work Phone: [facility] Work Phone: 05-12-2021 09:18-0400 Body height 172.7 cm Clayton Pacheco MD Work Phone: [facility] 05-12-2021 09:18-0400 Body mass index (BMI) [Ratio] 23.05 kg/m2 Clayton Pacheco MD Work Phone: [facility] 05-12-2021 09:18-0400 Body temperature 98.49 [degF] Clayton Pacheco MD Work Phone: [facility] 05-12-2021 09:18-0400 Body weight 68.77 kg Clayton Pacheco MD Work Phone: [facility] 05-12-2021 09:18-0400 Diastolic blood pressure 72 mm[Hg] Clayton Pacheco MD Work Phone: [facility] 05-12-2021 09:18-0400 Respiratory rate 16 /min Clayton Pacheco MD Work Phone: [facility] 05-12-2021 09:18-0400 Systolic blood pressure 116 mm[Hg] Clayton Pacheco MD Work Phone: [facility] 04-28-2021 09:09-0400 Body height 172.7 cm Clayton Pacheco MD Work Phone: [facility] 04-28-2021 09:09-0400 Body mass index (BMI) [Ratio] 22.99 kg/m2 Clayton Pacheco MD Work Phone: [facility] 04-28-2021 09:09-0400 Body temperature 98.2 [degF] Clayton Pacheco MD Work Phone: [facility] 04-28-2021 09:09-0400 Body weight 68.58 kg Clayton Pacheco MD Work Phone: [facility] 04-28-2021 09:09-0400 Diastolic blood pressure 80 mm[Hg] Clayton Pacheco MD Work Phone: [facility] 04-28-2021 09:09-0400 Heart rate 80 /min Clayton Pacheco MD Work Phone: [facility] 04-28-2021 09:09-0400 SaO2% (BldA) [Mass fraction] 99 % Clayton Pacheco MD Work Phone: [facility] 04-28-2021 09:09-0400 Systolic blood pressure 122 mm[Hg] Clayton Pacheco MD Work Phone: [facility] 04-24-2021 10:33-0400 Body height 172.7 cm Dimitry Bone MD Work Phone: [facility] 04-24-2021 10:33-0400 Body mass index (BMI) [Ratio] 23.26 kg/m2 Dimitry Bone MD Work Phone: [facility] 04-24-2021 10:33-0400 Body temperature 98.29 [degF] Dimitry Bone MD Work Phone: [facility] 04-24-2021 10:33-0400 Body weight 69.4 kg Dimitry Bone MD Work Phone: [facility] 04-24-2021 10:33-0400 Diastolic blood pressure 98 mm[Hg] Dimitry Bone MD Work Phone: [facility] 04-24-2021 10:33-0400 Heart rate 78 /min Dimitry Bone MD Work Phone: [facility] 04-24-2021 10:33-0400 Respiratory rate 18 /min Dimitry Bone MD Work Phone: [facility] 04-24-2021 10:33-0400 Systolic blood pressure 119 mm[Hg] Dimitry Bone MD Work Phone: [facility] 04-24-2021 10:32-0400 SaO2% (BldA) [Mass fraction] 100 % Dimitry Bone MD Work Phone: [facility] 06-20-2017 09:17-0400 BMI (Body Mass Index) 22.17 kg/m2 Lazara Hickey GEOMETRICIAN [facility] 06-20-2017 09:17-0400 Body Temperature 99.2 [degF] Lazara Hays GEOMETRICIAN [facility] 06-20-2017 09:17-0400 Body Temperature 99.19 [degF] Lazara Hays GEOMETRICIAN [facility] 06-20-2017 09:17-0400 BP Diastolic 63 mm[Hg] Lazara Hays GEOMETRICIAN [facility] 06-20-2017 09:17-0400 BP Systolic 94 mm[Hg] Lazara Ruperto GEOMETRICIAN [facility] 06-20-2017 09:17-0400 Height 172.72 cm Lazara Ruperto GEOMETRICIAN [facility] 06-20-2017 09:17-0400 Pulse (Heart Rate) 68 /min Lazara Hickey [facility] 06-20-2017 09:17-0400 Respiratory Rate 16 /min Lazara Hays GEOMETRICIAN [facility] 06-20-2017 09:17-0400 Weight 66.13 kg Lazara Ruperto GEOMETRICIAN [facility] 11-25-2014 15:27-0500 BSA (Body Surface Area) 1.78 m2 Lazara Ruperto [facility] Encounters Encounter Date Encounter Type Care Provider Facility Start: 07-30-2025 ambulatory Dimitry Sr Facility:[facility] Start: 07-03-2025 End: 07-03-[address] Dimitry Sr MD Work Phone: -Laboratory Start: 07-03-2025 End: 07-03-2025 Patient encounter procedure Eric Bonilla MD -Laboratory Work Phone: Start: 07-03-2025 End: 07-03-[address] Eric Bonilla MD -[facility] Work Phone: Start: 07-03-2025 End: 07-03-[address] Dimitry Sr MD Work Phone: -[facility] Start: 07-03-2025 End: 07-03-2025 ambulatory [facility] Facility:[facility] Start: 06-09-2025 End: 06-09-2025 Patient encounter status Lazara Chatterjeetings -C [facility] Start: 06-09-2025 End: 06-09-[address] Dimitry Sr MD Work Phone: -[facility] Start: 06-09-2025 End: 06-09-2025 Patient encounter procedure Lazara Hickey - -[facility] Work Phone: Start: 06-09-2025 End: 06-09-2025 ambulatory [facility] Facility:[facility] Start: 05-06-2025 End: 05-06-[address] Dimitry Sr MD Work Phone: [facility] Work Phone: Start: 05-06-2025 End: 05-06-[address] Eric Bonilla MD -Laboratory Work Phone: Start: 05-06-2025 End: 05-06-2025 ambulatory [facility] Facility:[facility] Start: 04-23-2025 End: 04-23-[address] Dimitry Sr MD Work Phone: [facility] Work Phone: Start: 04-23-2025 End: 04-23-2025 Patient encounter procedure Chuck DYER -Laboratory Work Phone: Start: 04-23-2025 End: 04-23-2025 ambulatory Dimitry Sr Facility:[facility] Start: 11-22-2023 Non-patient / Non-visit Dr. Ovi Sr Work Phone: [facility] Start: 11-22-2023 End: 11-22-2023 Admission to same day surgery center Dr. Dimitry Sr Work Phone: [facility]-Endoscopy Work Phone: Start: 11-22-2023 End: 11-22-[address] Dimitry Sr Work Phone: [facility] Work Phone: Start: 09-20-2023 Non-patient / Non-visit Dr. Ovi Sr Work Phone: [facility] Work Phone: Start: 09-05-2023 End: 09-05-[address] Dimitry Sr Work Phone: [facility] Work Phone: Start: 09-05-2023 End: 09-05-[address] Dimitry Sr Work Phone: [facility]-Laboratory Work Phone: Start: 09-05-2023 End: 09-05-[address] Dimitry Sr Work Phone: [facility] Work Phone: Start: 06-19-2023 End: 06-19-[address] Dimitry Sr Work Phone: [facility] Work Phone: Start: 06-19-2023 End: 06-19-[address] Dimitry Sr Work Phone: [facility] Work Phone: Start: 06-19-2023 End: 06-19-[address] Dimitry Sr Work Phone: [facility]-Outpatient Breast Imaging Work Phone: Start: 10-19-2022 End: 10-19-[address] Dimitry Sr Work Phone: [facility] Work Phone: Start: 10-19-2022 End: 10-19-[address] [facility] Start: 08-19-2022 End: 08-19-[address] Dimitry Sr Work Phone: [facility] Work Phone: Start: 08-19-2022 End: 08-19-[address] [facility] Start: 08-19-2022 End: 08-19-[address] Dimitry Sr Work Phone: [facility] Start: 07-07-2022 End: 07-07-[address] [facility] Start: 07-04-2022 End: 07-04-[address] Dimitry Sr Work Phone: [facility] Start: 05-19-2022 End: 05-19-2022 [facility] Start: 05-04-2022 Telephone encounter Mojgan Asif rry-Miguel Angel PA-C Work Phone: [facility] Comment on above: Results Start: 04-29-2022 Telephone encounter Mojgan Asif rry-Miguel Angel PA-C Work Phone: [facility] Comment on above: Release Of Medical R ecords; Received Outside Medical Records Start: 04-28-2022 End: 04-28-2022 Patient encounter procedure Mojgan Rice-Miguel Angel PA-C Work Phone: [facility] Comment on above: Rash and other nonsp ecific skin eruption (Primary Dx) Start: 04-11-2022 Registered Referred [facility] Start: 03-25-2022 End: 03-25-2022 [facility] encounter [facility] Start: 03-23-2022 End: 03-23-2022 Patient encounter procedure [facility] Start: 05-12-2021 End: 05-12-2021 Office outpatient visit 15 minutes Clayton Pacheco MD Work Phone: [facility] Comment on above: Dermatitis (Primary Dx) Start: 04-28-2021 End: 04-28-2021 Office outpatient new 45 minutes Clayton Pacheco MD Work Phone: [facility] Comment on above: Dermatitis (Primary Dx) Start: 04-24-2021 End: 04-24-2021 Emergency department patient visit DIMITRY DAMON SR [facility] Start: 04-24-2021 End: 04-24-2021 Emergency department patient visit Dimitry Bone MD Work Phone: [facility] Emergency Department Procedures Date Procedure Procedure Detail Performing Clinician Start: 06-09-2025 Liquid based cervica l cytology screening Dr. Dimitry Sr MD Work Phone: Comment on above: NEGATIVE FOR INTRAEP ITHELIAL LESION OR MALIGNANCY.CELLULAR CHANGES ASSOCIATED WITH ATROPHY ARE PRESENT. This liquid based Th inPrep(R) pap test was screened withthe use of an image guided system. Start: 06-09-2025 Screening mammography Pebbles Sr MD Work Phone: Start: 04-23-2025 Alternaria alternata JOSTIN Sr MD Work Phone: Start: 04-23-2025 Gibraltarian cockroach JOSTIN Sr MD Work Phone: Start: 04-23-2025 Box elder JOSTIN Sr MD Work Phone: Start: 04-23-2025 Cat dander JOSTIN Sr MD Work Phone: Start: 04-23-[address] Dimitry alexander MD Work Phone: Start: 04-23-[address] Dimitry Sr MD Work Phone: Start: 04-23-[address] Common silver birch RAST Dr. Dimitry Sr MD Work Phone: Start: 04-23-2025 House dust mite (Df) RAST Dr. Dimitry Sr MD Work Phone: Start: 04-23-2025 Mouse urine proteins RAST Dr. Dimitry Sr MD Work Phone: Start: 04-23-[address] Dimitry Sr MD Work Phone: Start: 04-23-2025 Penicillium [address] num [address] Dr[address] Dimitry Sr MD Work Phone: Start: 04-23-[address] Agustin Sr MD Work Phone: Start: 04-23-[address] Dimitry alexander MD Work Phone: Start: 04-23-[address] Ovi Sr MD Work Phone: Comment on above: Performed at: [address] [id number] Director: Ceferino Kitchen MD, Phone: [phone] Start: 04-23-[address] Dimitry alexander MD Work Phone: Start: 04-23-[address] Ovi Sr MD Work Phone: Start: 04-23-[address] [place] pollen RA[address] Ovi Sr MD Work Phone: Start: 11-22-[address] Dimitry alexander Work Phone: Start: 06-19-2023 Screening mammography D mikel Sr Work Phone: Start: 06-20-2017 Gynecologic examination Routin e gynecological exam Lazara Hickey GEOMETRICIAN Start: 06-20-2017 Screening mammography Mammogra m yearly screening Lazara Hickey GEOMETRICIAN Start: 06-21-2016 Mammography Mojgan Asif delfinoyMaritza FOSTER Work Phone: Plan of Treatment Date Care Activity Detail Author Start: 11-22-2023 Patient discharge [facility] Start: 06-19-2023 Patient referral [place] [facility] Work Phone: Start: 07-28-2022 Influenza vaccination INFLUENZ A (Season Ended) [facility] Start: 05-19-[address] [facility] Work Phone: Start: 07-28-2021 Influenza vaccination INFLUENZ A VACCINE (Season Ended) [facility] Start: 05-12-2021 End: 05-12-2021 Patient encounter procedure 05/12/2021 Office Visit Infectious Diseases Clayton Pacheco MD [address] [place], [place] [id number] [facility] Start: 04-28-2021 End: 04-28-2022 CHLAMYDIA/GONOCOCCUS, PEREZ CHLAMYDIA/GONOCOCCUS, PEREZ Microbiology Routine Dermatitis Expected: 04/28/2021, Expires: 04/28/2022 [facility] Comment on above: Expected: 04/28/2021 , Expires: 04/28/2022 Start: 2018 COLOGUARD (FIT-DNA) COLOGUARD (FIT-D NA) [facility] Start: 2018 Colonoscopy [facility] Start: 2018 COLORECTAL CANCER SCREENING COLORECTAL CANCER SCREENING [facility] Start: [address] COLONOGRAPHY [facility] Start: 2018 DIABETES SCREEN DIABETES SCREEN [facility] Start: 2018 FECAL OCCULT BLOOD FECAL OCCULT BLOO D [facility] Start: 2018 LIPID SCREEN LIPID SCREEN [facility] Start: 2018 SIGMOIDOSCOPY SIGMOIDOSCOPY Roseanne rice [facility] Start: 06-21-2017 Mammography MAMMOGRAM [facility] Start: 06-20-2017 End: 06-20-2017 Appointment Appointment [facility] Start: 06-20-2017 End: 06-20-2017 Mammogram, screening Mammogram, Screening, both breasts [facility] Start: 02-26-2017 HPV TESTING HPV TESTING [facility] Start: 02-26-2017 PAP TESTING PAP TESTING [facility] Start: 2013 Fasting lipid profile LIPID SCREENIN G [facility] Start: 2013 Screening mammography MAMMOGRA M SCREENING DISCUSSION [facility] Start: 1994 Screening for malign ant neoplasm of cervix CERVICAL CANCER SCREENING DISCUSSION [facility] Start: 1992 Third diphtheria, te tanus and acellular pertussis (DTaP) vaccination TDAP (ADULT) [facility] Start: 1992 Urine microalbumin profile DTAP,TDAP,TD (1 - Tdap) [facility] Start: 1991 ANNUAL PCP TEAM FIBER MACHINE TENDER OZIEL DISEASE VISIT ANNUAL PCP TEAM CHRONIC DISEASE VISIT [facility] Start: 1991 HEPATITIS C SCREENING HEPATITIS C SC REENING [facility] Start: 1991 HIV SCREENING HIV SCREENING [facility] Start: 1991 Tetanus vaccination TETANUS [facility] Start: 1985 Adult depression screening assessment DEPRESSION SCREENING [facility] Start: 1978 COVID-19 VACCINE (#1) COVID-19 VACCI NE (#1) [facility] Start: 1973 Hepatitis C antibody , confirmatory test HEPATITIS C VIRUS SCREENING [facility] Start: 1973 Thyroid stimulating hormone measurement TSH [facility] CBC W Auto Different ial panel - Blood [facility] Colonoscopy [facility] Complement C1 estera se inhibitor.functional/Comp lement C1 esterase inhibitor.total in Serum or Plasma [facility] Work Phone: Complement C4 [Mass/volume] in Serum or Plasma [facility] Work Phone: Complement total hemolytic CH50 [Units/volume] in Serum or Plasma [facility] Work Phone: Complete blood count with white cell differential, automated CBC, EDIF, PLATELET Lab Routine Dermatitis 04/28/2021 10:25 AM EDT [facility] Ferritin [Mass/volum e] in Serum or Plasma [facility] IgA [Mass/volume] in Serum or Plasma [facility] Work Phone: IgE [Units/volume] i n Serum or Plasma [facility] Work Phone: IgG [Mass/volume] in Serum or Plasma [facility] Work Phone: IgM [Mass/volume] in Serum or Plasma [facility] Work Phone: Liquid based cervica l cytology screening [facility] MG Breast - bilatera l Screening [facility] Work Phone: Patient referral [facility] Work Phone: Procedure [facility] Work Phone: Reagin Ab [Presence] in Serum by RPR RPR Lab Routine Dermatitis 04/28/2021 10:25 AM EDT [facility] SURGICAL PATHOLOGY SURGICAL PATH OLOGY Lab Routine Rash and other nonspecific skin eruption 04/28/2022 3:00 PM EDT [facility] Work Phone: Thyroperoxidase Ab [Units/volume] in Serum or Plasma [facility] Work Phone: Tryptase [Mass/volum e] in Serum or Plasma [facility] Work Phone: Vitamin B12 measurement [facility] Payers Date Payer Category Payer Self-pay [id number] 2012 Unknown [id number] 2012 Unknown [id number] 1973 Unknown [id number] Unknown [id number] Unknown [id number] Unknown [id number] [id number] Unknown [id number] [id number] Unknown [id number] [id number] Unknown [id number] Unknown [id number] Social History Date Type Detail Facility Start: 04-24-2021 End: 06-12-2025 Tobacco smoking status NHIS Never smoker [facility] Start: 04-24-2021 End: 05-12-2021 Tobacco use and exposure Never used [facility] Start: 04-24-2021 Alcohol intake Ex-drinker (finding) [facility] Start: 04-24-2021 End: 04-28-2021 History SDOH Alcohol Frequency 1 [facility] Start: 04-24-2021 Alcohol Comment occasional [facility] Start: 1975 Sex Assigned At Not on file [facility] Exposure to SARS-CoV-2 (event) Not sure [facility] Start: 04-28-2021 End: 05-12-2021 Alcohol intake Lifetime non-drinker (finding) [facility] Start: 06-17-2021 End: 11-22-2023 Tobacco smoking status RIIS Unknown if ever smoked [facility] Start: 04-11-2021 Non-smoker [facility] Start: 1975 Sex Assigned At Female [facility] Start: 06-21-2016 Alcohol intake Current drinke r of alcohol (finding) [facility] NEGATED: Highlighted row [facility] Goals Date Patient Goal Desired Activity /State Mental Status Date Assessment Result Facility 11-22-2023 Cognitive function Touch/Shaking [facility] Work Phone: 11-22-2023 Cognitive function Patient Orien tation Person;Place;Time [facility] Work Phone: Clinical Notes 04-24-2021 to 06-09-2025 Note Date & Type Note Facility 06-09-2025 Evaluation note Diagnosis Onset Date Resolution Atrophic vaginitis acute May 272024 8:56am Encounter for routine gynecological examination noneactive June 09, 2025 8:56am [facility] Work Phone: 1(850) 295-885207-14-2025 Evaluation note* Diagnosis Onset Date Resolution Status Admit Date Atrophic vaginitis acute May 272024 8:56am Encounter for routine gynecological examination noneactive May 272024 8:56am Iron deficiency acute June 8:53am Paresthesia and pain of righ t extremity acute July 03, 2025 8:53am Paresthesia of bilateral legs acute July 03, 2025 8:53am 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, 2025 8:53am 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 July 032024 8:53am [facility] Work Phone: 1(103) 334-878707-14-2025 Evaluation note* Diagnosis Onset Date Resolution Status Admit Date Atrophic vaginitis acute May 272024 8:56am Encounter for routine gynecological examination noneactive May 272024 8:56am Paresthesia and pain of righ t extremity acute July 03, 2025 8:53am Paresthesia of bilateral legs acute July 03, 2025 8:53am 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 11-22-2023 Procedure [facility]06-22-2022 Miscellaneous Notes* Telephone Encounter - Valencia Vaughn RN - 05/18/2022 10:25 AM EDT Outside medical records received including labs and history & physical Sent to scan * Telephone Encounter - Clementina Gomez LPN - 04/29/2022 10:28 AM EDT Authorization to release medical information for to CC filled out and faxed to [phone] with confirmation. [facility]waiting reports from [facility] Miscellaneous Notes* Telephone Encounter - Mojgan Rueda PA-C - 05/04/2022 4:19 PM EDT Patient contacted to discuss below biopsy results c/w dermal hypersensitivity reaction. - +URI sinus infection in January 2022 that preceded this rash - never went to doctor/provider for this, resolved - Was not tested for COVID at that time - Denies GI viral illness - Hepatitis A/B/C and HIV avail in Care everywhere from 04/2021- all negative - Has triamcinolone 0.1% cream - stopped OCPs in 2020, only on synthroid daily (has been on this medication for several years) Plan: - Discussed most likely viral etiology - Begin prednisone taper as prescribed - Re start triamcinolone cream BID (she has Rx for this at home , declines refills at this time) - Follow up VV in 8 weeks - Punch biopsy site is healing well Per patient, she will have sutures removed by PCP Mojgan Rueda PA-C May 04, 2022 4:30 PM FINAL DIAGNOSIS A. Skin, left anterior lower leg, punch biopsy: - Consistent with dermal hypersensitivity reaction (see comment). SDB/MW/mm 04/29/2022 Diagnosis Comment A. Histologic sections demonstrate mild basal epidermal vacuolization. In the dermis, there is an accompanying dense perivascular lymphocytic infiltrate with rare eosinophils. These findings are nonspecific. The differential diagnosis includes a viral exanthem and drug eruption. Clinical correlation is recommended. [facility] NoteHNO ID: [id number] Author: Mojgan Rueda PA-C Service: ? Author Type: Physician Advertising Material Distributor Type: Progress Notes Filed: 04/28/2022 4:48 PM Note Text: SKIN EXAM NEW CC: This patient is a 46 year old female. Patient presents with: Rash HPI: Location: shins, ankles, arms (left forearm) Appearance (size, shape, color): red bumps, blisters Duration: 3 months Symptoms (growing, itching, bleeding, tender): itches at times Treatments: Had it a 1 year ago for 3-4 months- went away Returned in january 2022 Had course of prednisone taper in February- rash spread No other family member in home with rash Has not been out of the country January 2021 was 2nd covid vaccine- rash started in February Booster in October 2021- rash came back in january Family history of autoimmune - maternal grandmother +MS, mother +GBS Has had lab work done - pt. Brought current labwork - arthralgias in wrists and fingers have resolved - still with some burning tingling sensation in right arm/elbow and occasional low back pain - Denies F/C, GUILLEN, N/V - No new soaps/lotions/detergents - No close contacts with this rash - Patient takes synthroid daily, otherwise no Medications - Has an appt with an Junior Electrical Engineer next month - Unsure if current rash is the same or different on rash last Spring 2020 (extensive work up with outside Derm, ID, ED visit). Had (2) punch biopsies performed by Derm , unable to state results. Was never provided with what the biopsies showed, does not have the reports, thinks it was just a red rash. - In 2020, She was on several different abx for presumed cellulitis, prednisone taper, topical steroids This rash was ultimately deemed 2/2 her OCPs, which she no longer takes. She previously saw Rheumatology /Dr Margarita Chávez in [place] Fax [phone] Was told her workup was negative for inflammatory arthritis Notes reviewed from ED visit (03/2021) The patient has had a complete work-up with lab testing does not require more now. The patient does admit that after she was put on various forms of Keflex, doxycycline, and Bactrim, the trunk rash became worse. Her initial leg rash, when viewed by me and pictures given me by the patient on her phone, appears somewhat suspicious for erythema nodosum, and I am concerned that this may been triggered with subsequent rashes either due to erythema multiforme or simply a drug rash. Because of this, I am recommending the patient go off her control pills, as she is 45 years old and no longer is at risk for conception which is the reason why she takes it. I also suggest she goes off her antibiotics at this time as there is no evidence of cellulitis. I am going to give her another loading dose of Solu-Medrol, Pepcid and Benadryl here, and then maintain her on a 5-day course of Pepcid Benadryl and prednisone. The hope is that this will improve her symptoms. She has an appoint with infectious disease in several days and I am hoping that by that time the rash may be significant improved. Notes reviewed from ID/ Dr Pacheco (04/2021), RAMOS Knowles: Patient seen, known history of hypothyroidism, and on OCP, She is presenting with >3 weeks of rashes which started from the legs, and then spread to the entire body, with some vesicles, and associated itching. Patient since then have been to the ER, and doctors, including the engineering consultant, she had been on keflex, bactrim, doxycycline, and steroid. And also she was taken off her OCP for the birthcontrol pills?. Patient denied any history of fever, no chills, no insect bites. No history of STD, no history of swimming, no lymph nodes., no oral involvement Rashes have started to improve since she had been on those therapies, and on stopping the OCP. Again on 05/12/2021: Patient in clinic for a follow up and lab discussion. She had developed some rashes in her upper extremities, and she was able to clear it with a steroid cream. Patient denied any fever, no chills, and no night sweats, no diarrhea. Patient with 1: Dermatitis, ?Allergy ? Medications, 2; Pruritus improved. 3: Leucocytosis, likely due to steriod use. Plans: I have reviewed labs with patient for std screening for now, rpr, and negative results. HIV, hepatitis. Negative results. Follow up prn. Ok to repeat cbc. Patient s/p antibiotic, and steroid po. Patient not on these any longer : famotidine, and prednisone. -Personal history of skin cancer: No -History of immunosuppression: No -History of blistering sunburns:Yes -Family history of skin cancer: No SOC: Social History Tobacco Use - Smoking status: Never Smoker - Smokeless tobacco: Never Used Substance Use Topics - Alcohol use: Yes Comment: Occasional - Drug use: No MEDS: Current outpatient prescriptions: Current Outpatient Medications on File Prior to Visit Medication Sig - Desogestrel-Ethinyl Estradiol (APRI) 0.15-0.03 mg per tablet Take 1 (more content not included)...[facility]06-02-2022 Instructions* Patient Instructions* Claudia Nur MA - 04/28/2022 2:37 PM EDT CARE OF BIOPSY SITE 1. Wash your hands with soap and water. 2. Cleanse the biopsy site with antibacterial soap for 7-10 days 3. Thoroughly dry the area and apply a small amount of Vaseline or Aquaphor to keep area greasy at all times (this prevents a scab from forming). 4. PLEASE DO NOT use polysporin, Bacitracin, triple antibiotic or similar ointments. 5. Place a small dressing or band-aid over the wound until the wound is healed. (Studies show that wounds heal better when covered with ointment and a dressing). Stitches are to be removed in 10-12 days (if applicable) If you have any questions or concerns, please contact the office at [phone] or send Nival message documented in [facility]06-[facility] History of Present illness Narrative* Mojgan Rueda PA-C - 04/28/2022 2:15 PM EDT SKIN EXAM NEW CC: This patient is a 46 year old female. Patient presents with: Rash HPI: Location: shins, ankles, arms (left forearm) Appearance (size, shape, color): red bumps, blisters Duration: 3 months Symptoms (growing, itching, bleeding, tender): itches at times Treatments: Had it a 1 year ago for 3-4 months- went away Returned in january 2022 Had course of prednisone taper in February- rash spread No other family member in home with rash Has not been out of the country January 2021 was 2nd covid vaccine- rash started in February Booster in October 2021- rash came back in january Family history of autoimmune - maternal grandmother +MS, mother +GBS Has had lab work done - pt. Brought current labwork - arthralgias in wrists and fingers have resolved - still with some burning tingling sensation in right arm/elbow and occasional low back pain - Denies F/C, GUILLEN, N/V - No new soaps/lotions/detergents - No close contacts with this rash - Patient takes synthroid daily, otherwise no Medications - Has an appt with an Junior Electrical Engineer next month - Unsure if current rash is the same or different on rash last Spring 2020 (extensive work up with outside Derm, ID, ED visit). Had (2) punch biopsies performed by Derm , unable to state results. Wasnever provided with what the biopsies showed, does not have the reports, thinks it was just a red rash. - In 2020, She was on several different abx for presumed cellulitis, prednisone taper, topical steroids This rash was ultimately deemed 2/2 her OCPs, which she no longer takes. She previously saw Rheumatology /Dr Margarita Chávez in [place] Fax [phone] Was told her workup was negative for inflammatory arthritis Notes reviewed from ED visit (03/2021) The patient has had a complete work-up with lab testing does not require more now. The patient doesadmit that after she was put on various forms of Keflex, doxycycline, and Bactrim, the trunk rash became worse. Her initial leg rash, when viewed by me and pictures given me by the patient on her phone, appears somewhat suspicious for erythema nodosum, and I am concerned that this may been triggered with subsequent rashes either due to erythema multiforme or simply a drug rash. Because of this, Wenceslao recommending the patient go off her control pills, as she is 45 years old and no longer isat risk for conception which is the reason why she takes it. I also suggest she goes off her antibio tics at this time as there is no evidence of cellulitis. I am going to give her another loading dose of Solu-Medrol, Pepcid and Benadryl here, and then maintain her on a 5-day course of Pepcid Benadryl and prednisone. The hope is that this will improve her symptoms. She has an appoint with infectious disease in several days and I am hoping that by that time the rash may be significant improved. Notes reviewed from ID/ Dr Pacheco (04/2021), RAMOS Knowles: Patient seen, known history of hypothyroidism, and on OCP, She is presenting with >3 weeks of rashes which started from the legs, and then spread to the entire body, with some vesicles, and associated itching. Patient since then have been to the ER, and doctors, including the engineering consultant, she had been on keflex, bactrim, doxycycline, and steroid. And also she was taken off her OCP for the birthcontrol pills?. Patient denied any history of fever, no chills, no insect bites. No history of STD, no history of swimming, no lymph nodes., no oral involvement Rashes have started to improve since she had been on those therapies, and on stopping the OCP. Again on 05/12/2021: Patient in clinic for a follow up and lab discussion. She had developed some rashes in her upper extremities, and she was able to clear it with a steroid cream. Patient denied any fever, no chills, and no night sweats, no diarrhea. Patient with 1: Dermatitis, ?Allergy ? Medications, 2; Pruritus improved. 3: Leucocytosis, likely due to steriod use. Plans: I have reviewed labs with patient for std screening for now, rpr, and negative results. HIV, hepatitis. Negative results. Follow up prn. Ok to repeat cbc. Patient s/p antibiotic, and steroid po. Patient not on these any longer : famotidine, and prednisone. -Personal history of skin cancer: No -History of immunosuppression: No -History of blistering sunburns:Yes -Family history of skin cancer: No SOC: Social History Tobacco Use Smoking status: Never Smoker Smokeless tobacco: Never Used Substance Use Topics Alcohol use: Yes Comment: Occasional Drug use: No MEDS: Current outpatient prescriptions: Current Outpatient Medications on File Prior to Visit Medication Sig Desogestrel-Ethinyl Estradiol (APRI) 0.15-0.03 mg per tablet Take 1 tablet by mouth once daily. LEVOTHYROXINE SODIUM (SYNTHROID ORAL) Take by mouth. FERROUS SULFATE, DRIED (IRON, DRIED, ORAL) Take by mouth. No current facility-administered medications on file prior to visit. ALLERGY: ALLERGIES No Known Allergies PAST MEDICAL HISTORY: No chronic skin disease or skin cancer FAMILY HISTORY: No chronic skin disease or skin cancer REVIEW OF SYSTEMS: Patient feels well and denies any recent fevers, chills, or nightsweats. PHYSICAL EXAM: The patient is a pleasant female in no distress. Patient is healthy, well developed,well nourished and in otherwise good health. she is alert and oriented x 3. A skin exam was done ofthe Scalp, face, ears, neck, chest, back, abdomen, bilateral upper extremities, bilateral lower extremities, buttocks, nails and hair. [place] Skin Type: II IMPRESSION: Left anterior lower leg with smooth clustered erythematous 1-2 mm papules, in oval shape plaque Bilateral posterior ankles erythematous patches with sharp borders Right dorsal forearm clusters of erythematous papules A) Left anterior lower leg- punch biopsy today A/P: (R21) Rash and other nonspecific skin eruption (primary encounter diagnosis) Plan: punch biopsy today, patient will obtain labs from Rheumatology workup, and clinic notes and Fax to office. Will hold off on obtaining additional labs until these are received. UNIVERSAL PROTOCOL / SAFETY CHECKLIST Procedure to be Performed: Punch Biopsy Sign In: A Moment of CARE was completed. Personnel directly involved with the procedure wore the appropriate PPE (Personal Protective Equipment). No special equipment needed. Patient/Surrogate Stated/Verified: PATIENT VERIFIED(optional for EMERGENT procedures): Patient name, Date of , Relevant allergies and The intended procedure Time Out Communication: Intended patient and procedure match the source documents. Relevant labs, photos, and/or imaging studies have been reviewed. Correct side/site marked and visible. Medications required for procedure verified. Fire risk assessed and interventions discussed. No implant(s) inserted. Sign Out: SIGN OUT (optional for EMERGENT procedures): All specimen containers correctly labeled. All instruments, equipment, possible retained foreign bodies accounted for. Post-procedure follow-up management communicated and Plan of Care Visit completed when applicable. Punch biopsy to establish and confirm diagnosis. Photo taken: Yes Risks, benefits, alternatives and personnel required for punch biopsy reviewed with patient. Patient and provider agree as to site(s) to be biopsied. Patient verbalizes understanding and wishes to proceed. Site(s) prepped with alcohol and anesthetized with 1% lidocaine with epinephrine. The following was sent for histologic evaluation. LESION #1 R/O: ACD vs systemic lupus vs other LOC OF LESION: A) Left anterior lower leg Size of punch used: 4 mm Hemostasis obtained with 4-0 interrupted sutures. Prolene EBL: none Bandaging applied. Patient tolerated procedure well and without complication. Written and verbal wound care instructions provided to patient, understanding verbalized. OK to call with results and [facility] instructions given verbally and in writing. Follow up pending pathology results. The patient is seen and examined by Mojgan Rueda PA-C and the following reflects his/her service. Scribed by Yvonne Bustamante LPN/Claudia Nur MA I agree with the Chief Complaint, ROS, and Past Histories independently gathered by the clinical system support technician and the remaining scribed note accurately describes my personal service to the patient. I spent a total of 35 minutes on the date of the service which included preparing to see the patient, [id number] patient care, completing clinical documentation, obtaining and/or reviewing separately obtained history, performing a medically appropriate examination, counseling and educating the pat ient/family/caregiver and ordering medications, tests, or procedures Mojgan Rueda PA-C April 28, 2022 4:47 PM documented in [facility]06-[facility] History of Present illness Narrative* Clayton Pacheco MD - 05/12/2021 9:30 AM EDT Chief Complaint Patient presents with Other follow up Other Associated symptoms include a rash. Pertinent negatives include no arthralgias, chest pain, chills,coughing, fever, joint swelling, nausea, sore throat, vomiting or weakness. Patient seen, known history of hypothyroidism, and on OCP, She is presenting with >3 weeks of rashes which started from the legs, and then spread to the entire body, with some vesicles, and associated itching. Patient since then have been to the ER, and doctors, including the engineering consultant, she had been on keflex, bactrim, doxycycline, and steroid. And also she was taken off her OCP for the birthcontrol pills?. Patient denied any history of fever, no chills, no insect bites. No history of STD, no history of swimming, no lymph nodes., no oral involvement Rashes have started to improve since she had been on those therapies, and on stopping the OCP. Again on 05/12/2021: Patient in clinic for a follow up and lab discussion. She had developed some rashes in her upper extremities, and she was able to clear it with a steroid cream. Patient denied any fever, no chills, and no night sweats, no diarrhea. Past Medical History: Diagnosis Date Hypothyroidism Outpatient Medications Prior to Visit Medication Sig Dispense Refill faMOTIdine 20 MG tablet Take 20 mg by mouth Twice daily. Ferrous Sulfate (Iron) 325 (65 Fe) MG tablet Take 65 mg by mouth daily. predniSONE 20 MG tablet Take 20 mg by mouth Twice daily. Synthroid 88 MCG tablet Take 88 mcg by mouth daily. No facility-administered medications prior to visit. No Known Allergies No family history on file. Social History Socioeconomic History Marital status: Spouse name: Not on file Number of children: Not on file Years of education: Not on file Highest education level: Not on file Occupational History Not on file Tobacco Use Smoking status: Never Smoker Smokeless tobacco: Never Used Substance and Sexual Activity Alcohol use: Never Drug use: Not Currently Sexual activity: Not on file Other Topics Concern Not on file Social History Narrative Not on file Social Determinants of Health Financial Resource Strain: Difficulty of Paying Living Expenses: Food Insecurity: Worried About Running Out of Food in the Last Year: Ran Out of Food in the Last Year: Transportation Needs: Lack of Transportation (Medical): Lack of Transportation (Non-Medical): Physical Activity: Days of Exercise per Week: Minutes of Exercise per Session: Stress: Feeling of Stress : Social Connections: Frequency of Communication with Friends and Family: Frequency of Social Gatherings with Friends and Family: Attends Judaism Services: Active Member of Clubs or Organizations: Attends Club or Organization Meetings: Marital Status: Intimate Partner Violence: Fear of Current or Ex-Partner: Emotionally Abused: Physically Abused: Sexually Abused: Review of Systems Constitutional: Negative for chills and fever. HENT: Negative for hearing loss and sore throat. Eyes: Negative for pain and itching. Respiratory: Negative for cough, shortness of breath and wheezing. Cardiovascular: Negative for chest pain, palpitations and leg swelling. Gastrointestinal: Negative for abdominal distention, blood in stool, diarrhea, nausea and vomiting. Genitourinary: Negative for difficulty urinating, dysuria, frequency and hematuria. Musculoskeletal: Negative for arthralgias and joint swelling. Skin: Positive for rash. Negative for pallor and wound. Neurological: Negative for dizziness and weakness. Psychiatric/Behavioral: Negative for confusion and sleep disturbance. Examination: BP 122/80 Pulse (Heart Rate) 80 Temp 98.2 F (36.8 C) Temp source Oral O2 Sat (%) 99 % Weight 68.6 kg (151 lb 3.2 oz) Height 1.727 m (5' 8) Physical Exam: GEN: Awake, resting comfortably EYES: EOMI, no scleral icterus HENT: MMM. No oral lesions. On face mask+ NECK: Supple, ? axilla lymphadenopathy CARDIO: RRR, PULM/CHEST: CTAB. No increased work of breathing ABD: Soft, not tender or distended MSK: no obvious effusion, swelling, increased warmth, or erythema of major joints. No pedal edema. SKIN: +rashes still fading on the legs, and arms, and face improving(with erythema improved) noted.Hands and fingers appear normal. (I did review images from her phone pictures again, and noted someareas of rashes with macular rashes, and erythema on both extremities), but healing, s/p steriod cream with triamcinolone NEURO: AOx3. Moves all four extremities. Labs: I reviewed labs from [facility]. With normal esr, crp, and PRADEEP Assess: Patient with 1: Dermatitis, ?Allergy ? Medications, 2; Pruritus improved. 3: Leucocytosis, likely due to steriod use. Plans: I have reviewed labs with patient for std screening for now, rpr, and negative results. HIV, hepatitis. Negative results. Follow up prn. Ok to repeat cbc. Patient s/p antibiotic, and steroid po. Patient not on these any longer : famotidine, and prednisone. All medications, and side effects, were adequately explained to patient. Antibiotic therapy risks and allergic reactions including rashes, diarrhea, C. diff colitis, angioedema and David-Mario like reaction were also discussed , and all questions answered, with patient expressing understanding. Over 50% of the clinic visit was involved in Discussion of Diagnosis, Plan, Infection Control , Prevention and Follow up. I have spent enough clinical quality time on face to face evaluation of patient, with/without family member, and reviewing medical records. Clayton Pacheco MD No notes on file [facility] History of Present illness Narrative* Clayton Pacheco MD - 04/28/2021 9:00 AM EDT Chief Complaint Patient presents with New Patient Other Cellulitis/abscess of leg HPI Patient seen, known history of hypothyroidism, and on OCP, She is presenting with >3 weeks of rashes which started from the legs, and then spread to the entire body, with some vesicles, and associated itching. Patient since then have been to the ER, and doctors, including the engineering consultant, she had been on keflex, bactrim, doxycycline, and steroid. And also she was taken off her OCP for the birthcontrol pills?. Patient denied any history of fever, no chills, no insect bites. No history of STD, no history of swimming, no lymph nodes., no oral involvement Rashes have started to improve since she had been on those therapies, and on stopping the OCP. Past Medical History: Diagnosis Date Hypothyroidism Outpatient Medications Prior to Visit Medication Sig Dispense Refill faMOTIdine 20 MG tablet Take 20 mg by mouth Twice daily. Ferrous Sulfate (Iron) 325 (65 Fe) MG tablet Take 65 mg by mouth daily. predniSONE 20 MG tablet Take 20 mg by mouth Twice daily. Synthroid 88 MCG tablet Take 88 mcg by mouth daily. No facility-administered medications prior to visit. No Known Allergies No family history on file. Social History Socioeconomic History Marital status: Spouse name: Not on file Number of children: Not on file Years of education: Not on file Highest education level: Not on file Occupational History Not on file Tobacco Use Smoking status: Never Smoker Smokeless tobacco: Never Used Substance and Sexual Activity Alcohol use: Never Drug use: Not Currently Sexual activity: Not on file Other Topics Concern Not on file Social History Narrative Not on file Social Determinants of Health Financial Resource Strain: Difficulty of Paying Living Expenses: Food Insecurity: Worried About Running Out of Food in the Last Year: Ran Out of Food in the Last Year: Transportation Needs: Lack of Transportation (Medical): Lack of Transportation (Non-Medical): Physical Activity: Days of Exercise per Week: Minutes of Exercise per Session: Stress: Feeling of Stress : Social Connections: Frequency of Communication with Friends and Family: Frequency of Social Gatherings with Friends and Family: Attends Judaism Services: Active Member of Clubs or Organizations: Attends Club or Organization Meetings: Marital Status: Intimate Partner Violence: Fear of Current or Ex-Partner: Emotionally Abused: Physically Abused: Sexually Abused: Review of Systems Constitutional: Negative for chills and fever. HENT: Negative for hearing loss and sore throat. Eyes: Negative for pain and itching. Respiratory: Negative for cough, shortness of breath and wheezing. Cardiovascular: Negative for chest pain, palpitations and leg swelling. Gastrointestinal: Negative for abdominal distention, blood in stool, diarrhea, nausea and vomiting. Genitourinary: Negative for difficulty urinating, dysuria, frequency and hematuria. Musculoskeletal: Negative for arthralgias and joint swelling. Skin: Positive for rash. Negative for pallor and wound. Neurological: Negative for dizziness and weakness. Psychiatric/Behavioral: Negative for confusion and sleep disturbance. Examination: BP 122/80 Pulse (Heart Rate) 80 Temp 98.2 F (36.8 C) Temp source Oral O2 Sat (%) 99 % Weight 68.6 kg (151 lb 3.2 oz) Height 1.727 m (5' 8) Physical Exam: GEN: Awake, resting comfortably EYES: EOMI, no scleral icterus HENT: MMM. No oral lesions. On face mask+ NECK: Supple, ? axilla lymphadenopathy CARDIO: RRR, PULM/CHEST: CTAB. No increased work of breathing ABD: Soft, not tender or distended MSK: no obvious effusion, swelling, increased warmth, or erythema of major joints. No pedal edema. SKIN: +rashes fading on the legs, and arms, and face(with erythema) noted. Hands and fingers appearnormal. (I did review images from her phone pictures, and noted some areas of rashes with vesicularrashes, and erythema and different stages of rashes noted) NEURO: AOx3. Moves all four extremities. Labs: I reviewed labs from [facility]. With normal esr, crp, and PRADEEP Assess: Patient with 1: Dermatitis, ?etiology. ? Medications, vs viral? 2; Pruritus improving. Plans: Will get std screening for now, rpr, gono/chlamydia HIV, hepatitis. Follow up in 2 weeks. Patient s/p antibiotic, and steroid. Patient on famotidine, and prednisone. All medications, and side effects, were adequately explained to patient. Antibiotic therapy risks and allergic reactions including rashes, diarrhea, C. diff colitis, angioedema and David-Mario like reaction were also discussed , and all questions answered, with patient expressing understanding. Over 50% of the clinic visit was involved in Discussion of Diagnosis, Plan, Infection Control , Prevention and Follow up. I have spent enough clinical quality time on face to face evaluation of patient, with/without family member, and reviewing medical records. Clayton Pacheco MD Patient here as a new patient referred by Dr. Sr for BLE cellulitis, rash on abdomen, back, face, arms > 1 month. Patient has been on Cephalexin 5-8, switched to doxycycline and triamcinolone cream 5-14. Blisters and rash started, patient was then started on Bactrim 5-19. Patient was then seen at [facility] ER 04-24, diagnosed with allergy to control medication, was given solumedrol, benadryl, famotidine and prednisone. Patient had been on control pill(Enskyce) for several years, was advised to stop due to the rash. Patient has had [employer] Covid vaccine 01/17 and 02/11. Patient did have 2 skin biopsies at [facility] in [place], diagnosed with spomgiotic dermatitisand dermal hypersensitivity reaction. Patient does report 2 episodes of cellulitis in the past (3-4 years ago) but does not feel that this time symptoms are the same. Patient denies all ill symptoms including fever, fatigue,chills, n/v/d. Patient does report at one point small blisters did form on legs, and had minimal drainage, itching. Patient has worn compression stockings off and on the last few weeks. 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 * Mary Lucio LPN - 04/28/2021 9:00 AM EDT Patient here as a new patient referred by Dr. Sr for BLE cellulitis, rash on abdomen, back, face, arms > 1 month. Patient has been on Cephalexin 5-8, switched to doxycycline and triamcinolone cream 5-14. Blisters and rash started, patient was then started on Bactrim 5-19. Patient was then seen at [facility] 04-24, diagnosed with allergy to control medication, was given solumedrol, benadryl, famotidine and prednisone. Patient had been on control pill(Enskyce) for several years, was advised to stop due to the rash. Patient has had [employer] vaccine 01/17 and 02/11. Patient did have 2 skin biopsies at [facility] in [place], diagnosed with spomgiotic dermatitisand dermal hypersensitivity reaction. Patient does report 2 episodes of cellulitis in the past (3-4 years ago) but does not feel that this time symptoms are the same. Patient denies all ill symptoms including fever, fatigue,chills, n/v/d. Patient does report at one point small blisters did form on legs, and had minimal drainage, itching. Patient has worn compression stockings off and on the last few weeks. 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 [facility] Hospital Discharge instructions* Instructions* Tino Adams MD - 04/24/2021 Please discontinue your control pill as well as all of your antibiotics, as this may be contributing or the cause of your rash. Make sure to follow-up as scheduled. You may begin having hot flashes irritability trouble sleeping and weight gain with the sudden cessation of your control, and please follow- up with your ETL PROGRAMMER regarding this. * Attachments The following attachments cannot be sent through Care Everywhere. * Erythema Multiforme (Luxembourgish) documented in this [id number] Emergency department Note* Ludy Raymond RN - 04/24/2021 11:[address] Adams was cartside and discussed pts discharge and medication orders. Pt verbalized understanding. PT c/o pain to right arm from IM injections, Ice pack provided to pt. Pt ambulated out of ED with a steady gait. Respirations even and unlabored * Tino Adams MD - 04/24/2021 11:24 AM EDT [facility] ED Attending Note: NAME: Mary Sage 45 y.o. CSN: [id number] PCP: Dimitry Sr MD History: Chief Complaint: Rash HPI: The history was obtained from the patient and Sister. Mary is a 45 y.o. female who presentswith a chief complaint of Rash. The patient is a pleasant 45-year-old female, in general good health, who presents from home with complaints of a rash to her trunk and extremities for the last 2 to 3months. She has been seen by dermatology and is doing conference and has had biopsies of where the rash began in her left leg without clear etiology. Several days ago she had a number of blood tests including a normal C-reactive protein, normal sed rate, and negative RNA negative Lyme titers. She has been on prednisone Pepcid and Benadryl with no relief of the rash which is increasingly spreading over her trunk and now on her face. It itches but does not hurt. The initial rash in the left leg appeared somewhat different, was much more coalescent, it was painful although it is at this time healed. She has no difficulty with swallowing speaking or breathing. PMHx: Past Medical History: Diagnosis Date Anemia Cellulitis PMSx: History reviewed. No pertinent surgical history. FAM. Hx: History reviewed. No pertinent family history. SOC. Hx: Social History Socioeconomic History Marital status: Spouse name: Not on file Number of children: Not on file Years of education: Not on file Highest education level: Not on file Occupational History Not on file Tobacco Use Smoking status: Never Smoker Smokeless tobacco: Never Used Substance and Sexual Activity Alcohol use: Not Currently Comment: occasional Drug use: Never Sexual activity: Not on file Other Topics Concern Not on file Social History Narrative Not on file Social Determinants of Health Financial Resource Strain: Difficulty of Paying Living Expenses: Food Insecurity: Worried About Running Out of Food in the Last Year: Ran Out of Food in the Last Year: Transportation Needs: Lack of Transportation (Medical): Lack of Transportation (Non-Medical): Physical Activity: Days of Exercise per Week: Minutes of Exercise per Session: Stress: Feeling of Stress : Social Connections: Frequency of Communication with Friends and Family: Frequency of Social Gatherings with Friends and Family: Attends Judaism Services: Active Member of Clubs or Organizations: Attends Club or Organization Meetings: Marital Status: MEDs: Previous Medications Medication Sig ferrous sulfate 325 (65 FE) MG tablet Take 325 mg by mouth daily with breakfast . sulfamethoxazole-trimethoprim (BACTRIM,SEPTRA) 200-40 mg/5 mL suspension Take by mouth 2 (two) times a day . [DISCONTINUED] predniSONE (DELTASONE) 20 MG tablet Take 20 mg by mouth daily . ALL: No Known Allergies ROS: Positives and pertinent negatives as per HPI. All other systems were reviewed and are negative. Physical Exam: Patient Vitals for the past 24 hrs: BP Temp Pulse Resp SpO2 Height Weight 04/24/21 1033 (!) 119/98 98.3 F (36.8 C) 78 18 5' 8 69.4 kg (153 lb) 04/24/21 1032 100 % Physical Exam Vitals and nursing note reviewed. Constitutional: Appearance: Normal appearance. HENT: Mouth/Throat: Mouth: Mucous membranes are moist. Cardiovascular: Rate and Rhythm: Normal rate and regular rhythm. Pulmonary: Effort: Pulmonary effort is normal. Breath sounds: Normal breath sounds. Skin: Comments: There is a maculopapular erythematous rash over the trunk and upper extremities. The leftlower leg shows a hypomelanotic area where the previous rash has almost completely resolved. There is no evidence of cellulitis. There is no vesicular formation. There is no evidence of wheals or scabies. There is no sandpaper texture. Neurological: General: No focal deficit present. Mental Status: She is alert and oriented to person, place, and time. Psychiatric: Mood and Affect: Mood normal. Behavior: Behavior normal. Laboratory & Radiological Imaging (if done): Labs Reviewed - No data to display No orders to display Procedures: Procedures ED Course / Medical Decision Making: The patient has had a complete work-up with lab testing does not require more now. The patient doesadmit that after she was put on various forms of Keflex, doxycycline, and Bactrim, the trunk rash became worse. Her initial leg rash, when viewed by me and pictures given me by the patient on her phone, appears somewhat suspicious for erythema nodosum, and I am concerned that this may been triggered with subsequent rashes either due to erythema multiforme or simply a drug rash. Because of this, Wenceslao recommending the patient go off her control pills, as she is 45 years old and no longer isat risk for conception which is the reason why she takes it. I also suggest she goes off her antibio tics at this time as there is no evidence of cellulitis. I am going to give her another loading dose of Solu-Medrol, Pepcid and Benadryl here, and then maintain her on a 5-day course of Pepcid Benadryl and prednisone. The hope is that this will improve her symptoms. She has an appoint with infectious disease in several days and I am hoping that by that time the rash may be significant improved. The patient has been informed that they may have pre-hypertension or hypertension based on a blood pressure reading in the Emergency Department. I recommend that the patient call the primary care provider listed on their discharge instructions or a physician of their choice as soon as possible to arrange follow-up in the next 4 weeks for further evaluation of possible pre-hypertension or hypertension. . Clinical Impression: 1. Rash Disposition: Patient is being discharged to home New Prescriptions predniSONE (DELTASONE) 20 MG tablet Take 1 (one) tablet (20 mg total) by mouth 2 (two) times a day for 10 doses . diphenhydrAMINE (BENADRYL) 25 mg capsule Take 2 (two) capsules (50 mg total) by mouth every 6 (six)hours as needed for itching . famotidine (PEPCID) 20 MG tablet Take 1 (one) tablet (20 mg total) by mouth 2 (two) times a day . Tino Adams MD [facility] Emergency Department (Please note that portions of this note have been completed with a voice recognition software. Efforts were made to correct any errors, but occasionally words are mis-transcribed.) Tino Adams MD 04/24/21 1136 * Melody Sandoval RN - 04/24/2021 10:26 AM EDT Pt reports to ED today with c/o rash on bilateral upper and lower extremities along with abdomen and lower back and face. Pt states rash is very itchy. Pt denies any pain at this time. Pt states thather rash had initally started in december in her left lower leg after hitting it, pt was put on keflex. Pt rash began to appear on her RLE. Pt states about 1 1/2 weeks ago her rash had expanded to her face, front and back part of her torso, to her face, and bilateral upper extremities. Pt denies any change in her body care items, diet, or detergent. Pt is currently on bactrim and prednisone. Pt took 20 mg prednisone this morning along with 2 doses of bactrim. documented in this encounterMassachusettsHealthEvaluation note* Diagnosis Rash- Primary Rash and other nonspecific skin eruption [facility]* Diagnosis Dermatitis- Primary Contact dermatitis and other eczema, due to unspecified cause [facility]* Diagnosis Dermatitis- Primary Contact dermatitis and other eczema, due to unspecified cause [facility] noteNo assessment information availableWFisher-[facility] Work Phone: Evaluation note* Diagnosis Rash and other nonspecific skin eruption- Primary [facility]* Diagnosis Dermal hypersensitivity reaction- Primary Contact dermatitis and other eczema, due to unspecified cause Rash and other nonspecific skin eruption [facility]* Diagnosis Onset Date Resolution Status Encounter for routine gynecological examination noneactive Monilial vaginitis noneactiv e 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 acute [facility] Work Phone: Evaluation note* Diagnosis Onset Date Resolution Status Atrophic vaginitis acute Encounter for routine gynecological examination noneactive [facility] Work Phone: Evaluation note* Diagnosis Onset Date Resolution Status Atrophic vaginitis acute Encounter for routine gynecological examination noneactive 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 [facility] Work Phone: Evaluation note* Diagnosis Onset Date Resolution Status 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 Dimitry Sr MD Status:[facility] Location: [address] - [facility] General Date of Service: 11/22/23 HPI Narrative MARY SAGE, is a 48 F who presents for screening colonoscopy. Patient never had previous colonoscopy. Patient denies any family history of colon cancer in immediate family. Patient's bowel movements daily denies any blood. Patient denies any chronic abdominal pain/nausea/vomiting/reflux. [facility] Medical History (Updated 11/17/23 @ 11:20 by Anna Cooper) Anemia Family hx of colon cancer History of ulceration hx of child 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 Non-smoker Post-menopausal Thyroid disease Wears contact lenses Home Medications ferrous sulfate 325 mg (65 mg iron) tablet 65 mg PO .QOD 07/04/22 [History Last Taken 11/14/23] levothyroxine 88 mcg tablet (Synthroid) 88 mcg PO .daily, 1 1/2 on #96 tabs1 [Rx Last Taken 11/19/23] estradiol 0.01% (0.1 mg/gram) vaginal cream 1 appful vaginal SUTH 11/17/23 [History Last Taken 11/17/23] levothyroxine 88 mcg capsule 132 mcg PO CHENEY 11/17/23 [History Last Taken 11/22/23] Allergy/AdvReac Type Severity Reaction Status Date / Time doxycycline Allergy Intermediate Rash Verified 11/22/23 08:22 Family History (Updated 09/20/23 @ 08:28 by Kim Bonilla) Grandfather Colon cancer Other Anemia Autoimmune disorder Surgical History (Updated 11/17/23 @ 11:20 by Anna Cooper) History of umbilical hernia repair Social History Smoking Status: Never smoker alcohol intake: current alcohol intake frequency: 0-2 drinks per day details: social substance use type: does not use caffeine: Yes what type of physical activity do you participate in: walking and additional details: treadmill frequency: 5-6 times per week seatbelt use: always do you feel safe at home: Yes additional social history: [employer] 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Past Medical/Surgical History Planned Operation Planned Operative Procedure/s: CSCOPE OA S.O.S: No Previous Hospitalizations/Surgeries HX Hospitalizations: No HX of Surgeries: VAGINAL CHILDBIRTH X 2 Any Problems With Anesthesia: No You/Your Family Experience Fever (Hyperthermia) With Anes: No Cholinesterase deficiency: No Cardiovascular Hx Chest Pain within Last 2 months: No Hx of Irregular Heartbeat and/or Afib: No Hx Heart Attack: No Hx Congestive Heart Failure: No Hx Rheumatic Fever: No Hx Hypertension: No Hx Internal Defibrillator: No Hx Pacemaker: No Hx Cardiac Catheterization: No Hx Cardiac Surgery/Stents/Etc.: No Hx Stress Test: No Hx Pain in Legs when Walking/Leg Cramps: No Respiratory Chronic Cough: No HX of Shortness of Breath: No Hoarseness: No Hx Chronic Obstructive Pulmonary Disease (COPD): No Hx Asthma: No Hx Emphysema: No Hx Sleep Apnea: No CPAP: No BIPAP: No Hx Respiratory Tract Infection/Cold (presently): No Do You Snore Loudly (louder than talking or can be heard): No Do You Often Feel Tired/ Fatigued/ Sleepy Dring Daytime?: No Has Anyone Observed You Stop Breathing During Sleep?: No Result (for STOP score): Negative Hx Smoking: No Smoking Status: Never smoker Gastrointestinal Hx Gastrointestinal Disorders: No Hx Gastrointestinal Bleed: No Hx Ulcer: Yes (AGE 6) Hx Hiatal Hernia: No Difficulty Chewing/Swallowing: No Special diet followed at home: No Hx Unplanned Weight Loss of 20#: No HX Unplanned Weight Gain of 20#: No Neurological Hx Seizures: No HX Syncope/Blackout Spells/Unconsciousness: No Hx Transient Ischemic Attacks (TIA): No Hx Multiple Sclerosis: No Hx Parkinson's Disease: No Hx Head/Neck Injury: No Hx Headaches: No Hx Back Injury/Pain: No Recent Onset of Speech Difficulty: No Restless Legs: No Does patient have nerve stimulator: No Blood Disorder Hx Leukemia: No Bleeding Tendencies: No Hx Deep Vein Thrombosis: No Hx High Cholesterol: No Blood Transmitted Disease: No Hx Hepatitis: No Hx Cirrhosis: No Hx Anemia: Yes (ON IRON) Hx Blood Disorders: No Reproduction : No Is Patient Lactating: No Hx Hysterectomy: No Hx Tubal Ligation: No Are You Post Menopause: No Genitourinary Hx Renal Disease: No Musculoskeletal Hx Arthritis: No Hx Rheumatoid Arthritis: No Hx Gout: No Recent Onset of an Orthopedic Problem: No Endocrine Hx Diabetes: No Thyroid Disease: Yes (ON MED) Hx Steroid Therapy: No Psycho/Social Hx Substance Use: No Hx Alcohol Use: Yes (OCCASIONAL SOCIAL) Hx Anxiety: No Hx Depression: No Mental Illness: No Hx Dementia: No Miscellaneous Hx Cancer: No Recent Exposure to Contagious Disease: No Hx of C-Diff: No Any Loose Teeth: No Allergies doxycycline Allergy (Intermediate, Verified 11/22/23 08:22) Rash Discharge Is Pt Admitted From a [facility], or a Care Home: No After D/C, Where Do you Plan to Go: Return Home Vital Signs Vital Signs Vital Signs: 11/22/23 08:23 11/22/23 08:23 Temperature 97.4 F L Temperature Source Temporal Pulse Rate 63 Respiratory Rate 12 Respiratory Pattern Normal Blood Pressure 99/66 Blood Pressure Mean 77 Blood Pressure Source Manual Blood Pressure Position Sitting Blood Pressure Location Left Arm Pulse Ox 100 Oxygen Delivery Method Room Air Weight Weight: 136 lb 10.986 oz Body Mass Index (BMI) 20.7 Physical Exam Const alert, oriented x3 and no apparent distress HEENT normocephalic and head/scalp atraumatic Resp normal respiratory effort Cardio regular rate GI soft to palpation and non-tender; Negative for non-distended Palpation: Negative for guarding Extremity no clubbing, cyanosis or edema Skin no rashes or lesions noted Neuro CN's II-XII intact bilaterally Psych mental status grossly normal Assessment & Plan Assessment/Plan (1) Encounter for screening for malignant neoplasm of colon: Surgery Risks - Colonoscopy Risks Include but are not Limited To: Risks include but are not limited to: Bleeding, perforation requiring further surgery, inability to complete colonoscopy requiring barium enema. 11/22/23 0839 <Electronically signed by Nilam Elliott MD> Cosigner Signature (if applicable): CC: Dr. Dimitry Sr MD; Dr. 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 Advance Directives and Livin g Will 04/24/2021 10:37 AM Advance Directive Response Recorded Date/ Time Advance Directives No April 03, 2021 11:14am Living Will No April 11, 2021 8 :34pm Power of Precision Lens Polisher No April 11, 2021 8:34pm Advance Directive Response Recorded Date/ Time Advance Directives No July 20, 2022 4:51pm Living Will No July 20 4:51pm Power of Precision Lens Polisher No July 20 022 4:51pm Advance Directive Response Recorded Date/ Time Advance Directives No July 20, 2022 3:51pm Living Will No July 20 3:51pm Power of Precision Lens Polisher No July 20 022 3:51pm Advance Directive Response Recorded Date/ Time Advance Directives No June 19 9:18am Living Will No June 19, 2023 9:18am Power of Precision Lens Polisher No June 19 9:18am Advance Directive Response Recorded Date/ Time Advance Directives No June 19 8:18am Living Will No November 17 023 11:14am Power of Precision Lens Polisher No November 17, 2023 11:14am Advance Directive Response Recorded Date/ Time Advance Directives No June 19 9:18am Advance Directive Response Recorded Date/ Time Living Will No November 17 023 12:14pm Do you have a Healthcare Power of Precision Lens Polisher? No November 17, 2023 12:14pm Advance Directives No June 19 9:18am Summary Purpose Family History No Family History Records Found Relationship Condition Age at Onset Recorded Date/T akhil Not Specified Malignant neoplasm of colon Unknown Anemia Unknown Autoimmune disorder Unknown Relationship Condition Age at Onset Recorded Date/T akhil Not Specified Anemia Unknown Autoimmune disorder Unknown grandfather Malignant neoplasm of colon Unknown Chief Complaint and Reason for Visit Chief Complaint HRA LABWORK COVID AB TESTING Chief Complaint Annual (PSYCHOLOGY PHYSICIAN) ALLERGY THYROID E-ORDER Reason for Visit Encounter for routin e gynecological examination Monilial vaginitis 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 Chief Complaint Annual (PSYCHOLOGY PHYSICIAN) ALLERGY THYROID E-ORDER INT LABS Reason for Visit Encounter for routin e gynecological examination Monilial vaginitis 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 Chief Complaint SCREENING Annual (PSYCHOLOGY PHYSICIAN) Reason for Visit Atrophic vaginitis Encounter for routine gynecological examination Chief Complaint SCREENING Annual (PSYCHOLOGY PHYSICIAN) 1 Y FU E-ORDER Reason for Visit Atrophic vaginitis Encounter for routine gynecological examination 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 Chief Complaint 1 Y FU E-ORDER Amb Documentation Reason for Visit Hypothyroidism due t o Margo's thyroiditis Encounter for screening for malignant neoplasm of colon Chief Complaint Admit Date Allergy, unspecified, initial encounter April 23, 2025 4:23pm Chief Complaint Admit Date Allergy, unspecified, initial encounter April 23, 2025 4:23pm INT LABS May 06, 2025 12:4 6pm Chief Complaint Admit Date Allergy, unspecified, initial encounter April 23, 2025 4:23pm INT LABS May 06, 2025 12:4 6pm screen for breast cancer June 09, 2025 8:19am Annual (PSYCHOLOGY PHYSICIAN) June 09, 2025 8:56 am Reason for Visit Admit Date Atrophic vaginitis June 09, 2025 8:56 am Encounter for routine gynecological exam ination June 09, 2025 8:56am Chief Complaint Admit Date Allergy, unspecified, initial encounter April 23, 2025 4:23pm INT LABS May 06, 2025 12:4 6pm screen for breast cancer June 09, 2025 8:19am Annual (PSYCHOLOGY PHYSICIAN) June 09, 2025 8:56 am 1 Y FU July 03, 2025 8:5 3am Reason for Visit Admit Date Atrophic vaginitis June 09, 2025 8:56 am Encounter for routine gynecological exam ination June 09, 2025 8:56am Iron deficiency July 03, 2025 8:5 3am Paresthesia and pain of right extremity July 03, 2025 8:53am Paresthesia of bilateral legs June 8:53am Pretibial myxedema July 03, 2025 8:5 3am Hypothyroidism due to Margo's thyroi ditis July 03, 2025 8:53am Chief Complaint Admit Date Allergy, unspecified, initial encounter April 23, 2025 4:23pm INT LABS May 06, 2025 12:4 6pm screen for breast cancer June 09, 2025 8:19am Annual (PSYCHOLOGY PHYSICIAN) June 09, 2025 8:56 am 1 Y FU July 03, 2025 8:5 3am E-ORDER July 03, 2025 11: 21am Reason for Visit Admit Date Atrophic vaginitis June 09, 2025 8:56 am Encounter for routine gynecological exam ination June 09, 2025 8:56am Paresthesia and pain of right extremity July 03, 2025 8:53am Paresthesia of bilateral legs June 8:53am Pretibial myxedema July 03, 2025 8:5 3am Hypothyroidism due to Margo's thyroi ditis July 03, 2025 8:53am Iron deficiency July 03, 2025 8:5 3am Additional Source Comments Reason for Visit (unrecogniz ed section and content) Reason Comments Rash Reason Comments New Patient Other Cellulitis/abscess o f leg Reason Comments Other follow up Reason Comments Rash Reason Comments Results Reason Comments Release Of Medical Records Received Outside Medical Records Scheduled Active and Recently Administ ered Medications (unrecognized section and content) Medication Order 04/22/2021 04/23/2021 04/24/2021 diphenhydrAMINE (BENADRYL) injection 50 mg (COMPLETED) 50 mg, Intramuscular, Once, On 04/24/21 at 1115, For 1 dose, For IV administration, give at a rate less than or equal to 25 mg/min 1133 (Given - Provid er: Melody Sandoval RN) famotidine (PEPCID) tablet 20 mg (COMPLETED) 20 mg, Oral, Once, On 04/24/21 at 1115, For 1 dose 1129 (Given - Provid er: Melody Sandoval RN) methylPREDNISolone sod suc(PF) (SOLU-medrol) Injection 125 mg (COMPLETED) 125 mg, Intramuscular, Once, On 04/24/21 at 1115, For 1 dose 1130 (Given - Provid er: Melody Sandoval RN) INFORMATION SOURCE (unrecogn ized section and content) DATE CREATED AUTHOR 05/01/2021 [facility] DATE CREATED AUTHOR AUTHOR'S ORGANIZ ATION 05/13/2021 [facility] DATE CREATED AUTHOR AUTHOR'S ORGANIZ ATION 05/19/2022 [facility] DATE CREATED AUTHOR AUTHOR'S ORGANIZ ATION 07/29/2025 [facility] Goals (unrecognized section and content) Goals may be documented in a n alternate sectionGoals may be documented in an alternate sectionGoals may be documented in an alternate sectionGoals may be documented in an alternate sectionGoals may be documented in an alternate sectionGoals may be documented in an alternate sectionGoals may be documented in an alternate sectionGoals may be documented in an alternate sectionGoals may be documented in an alternate sectionGoals may be documented in an alternate sectionGoals may be documented in an alternate sectionGoals may be documented in an alternate sectionGoals may be documented in an alternate section Source Comments (unrecognize d section and content) In the event this informatio n is protected by the Federal Confidentiality of Alcohol and Drug Abuse Patient Records regulations: The Federal rules restrict any use of the information to criminally investigate or prosecute any alcohol or drug abuse patient.[facility] Hospital[facility] the event this information is protected by the Federal Confidentiality of Alcohol and Drug Abuse Patient Records regulations: The Federal rules restrict any use of the information to criminally investigate or prosecute any alcohol or drug abuse patient.[facility] HospitalIn the event this information is protected by the Federal Confidentiality of Alcohol and Drug Abuse Patient Records regulations: The Federal rules restrict any use of the information to criminally investigate or prosecute any alcohol or drug abuse patient.[facility] Care Teams (unrecognized sec tion and content) Recordings Librarian Relationship Specialty Start Date End Date Jed Matute PCP - General Family Practice 01/31/11 Recordings Librarian Relationship Specialty Start Date End Date ChristmasJed PCP - General Family Practice 01/31/11 Recordings Librarian Relationship Specialty Start Date End Date ChristmasJed PCP - General Family Practice 01/31/11 Team Status: Active Member Role Status Dates Dr. Dimitry Sr MD Family Provider Active Team Status: Inactive Member Role Status Dates Dr. Dimitry Sr MD Referring Provider Active Lazara Hickey GEOMETRICIAN, GEOMETRICIAN-C Attending Provider Active Team Status: Inactive Member Role Status Dates Dr. Dimitry Sr MD Primary Care Provider Active Lazara Hickey GEOMETRICIAN, GEOMETRICIAN-C Attending Provider, Referring Provider Active Team Status: Active Member Role Status Dates Dr. Dimitry Sr MD Family Provider Active Dr. Dimitry Sr MD Primary Care Provider Active Team Status: Inactive Member Role Status Dates Dr. Dimitry Sr MD Referring Provider Active Dr. Eric Bonilla MD Attending Provider Active Team Status: Inactive Member Role Status Dates Dr. Dimitry Sr MD Primary Care Provider Active Dr. Eric Bonilla MD Attending Provider, Referring Provi juan francisco Active Team Status: Active Member Role Status Dates Dr. Dimitry Sr MD Primary Care Provider Active Kim Bonilla Attending Provider Active Team Status: Active Member Role Status Dates Dr. Dimitry Sr MD Primary Care Provider Active Dr. Nilam Elliott MD Attending Provi juan francisco, Referring Provider, Other Provider Active Dr. Eric Bonilla MD Other Provider Active Team Status: Inactive Member Role Status Dates Dr. Dimitry Sr MD Primary Care Provider Active Dr. Nilam Elliott MD Attending Provider, Referring Provider Active Dr. Eric Bonilla MD Other Provider Active Team Status: Inactive Member Role Status Dates Dr. Dimitry Sr MD Primary Care Provider Active Start: April 23, 2025 End: April 23, 2025 Chuckangelika De La Cruz , [place] Attending Provider Active Star t: April 23, 2025 End: April 23, 2025 Chuck De La Cruz , [place] Referring Provider Active Star t: April 23, 2025 End: April 23, 2025 Team Status: Inactive Member Role Status Dates Dr. Dimitry Sr MD Primary Care Provider Active Start: May 06, 2025 End: May 06, 2025 Dr. Eric Bonilla MD Attending Provider Active Sta rt: May 06, 2025 End: May 06, 2025 Dr. Eric Bonilla MD Referring Provider Active Sta rt: May 06, 2025 End: May 06, 2025 Team Status: Active Member Role/Relationship Status Dates Dr. Dimitry Sr MD Primary Care Provider Active Team Status: Inactive Member Role/Relationship Status Dates Dr. Dimitry Sr MD Primary Care Provider Active Start: April 23, 2025 End: April 23, 2025 Chuck De La Cruz , [place] Attending Provider Active Star t: April 23, 2025 End: April 23, 2025 Chuck De La Cruz , [place] Referring Provider Active Star t: April 23, 2025 End: April 23, 2025 Team Status: Inactive Member Role/Relationship Status Dates Dr. Dimitry Sr MD Primary Care Provider Active Start: May 06, 2025 End: May 06, 2025 Dr. Eric Bonilla MD Attending Provider Active Sta rt: May 06, 2025 End: May 06, 2025 Dr. Eric Boinlla MD Referring Provider Active Sta rt: May 06, 2025 End: May 06, 2025 Team Status: Active Member Role/Relationship Status Dates Dr. Dimitry Sr MD Primary Care Provider Active Start: June 09, 2025 Lazara Hickey GEOMETRICIAN, GEOMETRICIAN-C Attending Provider Active Start: June 09, 2025 Lazara Hickey GEOMETRICIAN, GEOMETRICIAN-C Referring Provider Active Start: June 09, 2025 Team Status: Inactive Member Role/Relationship Status Dates Dr. Dimitry Sr MD Primary Care Provider Active Start: June 09, 2025 End: June 09, 2025 Dr. Dimitry Sr MD Referring Provider Active Start: June 09, 2025 End: June 09, 2025 Lazara Hickey GEOMETRICIAN, GEOMETRICIAN-C Attending Provider Active Start: June 09, 2025 End: June 09, 2025 Team Status: Inactive Member Role/Relationship Status Dates Dr. Dimitry Sr MD Primary Care Provider Active Start: June 09, 2025 End: June 09, 2025 Lazara Hickey GEOMETRICIAN, GEOMETRICIAN-C Attending Provider Active Start: June 09, 2025 End: June 09, 2025 Lazara Hickey GEOMETRICIAN, GEOMETRICIAN-C Referring Provider Active Start: June 09, 2025 End: June 09, 2025 Team Status: Inactive Member Role/Relationship Status Dates Dr. Eric Bonilla MD Attending Provider Active Sta rt: July 03, 2025 End: July 03, 2025 Dr. Dimitry Sr MD Primary Care Provider Active Start: July 03, 2025 End: July 03, 2025 Dr. Dimitry Sr MD Referring Provider Active Start: July 03, 2025 End: July 03, 2025 Team Status: Inactive Member Role/Relationship Status Dates Dr. Dimitry Sr MD Primary Care Provider Active Start: July 03, 2025 End: July 03, 2025 Dr. Eric Bonilla MD Attending Provider Active Sta rt: July 03, 2025 End: July 03, 2025 Dr. Eric Bonilla MD Referring Provider Active Sta rt: July 03, 2025 End: July 03, 2025 FOR RECORDS PERTAINING TO PATIENTS WHO ARE OR HAVE BEEN ENROLLED IN A CHEMICAL DEPENDENCY/SUBSTANCEABUSE PROGRAM, SOME INFORMATION MAY BE OMITTED. This clinical summary was aggregated from multiple sources. Caution should be exercised in using it in the provision of clinical care. This summary normalizes information from multiple sources, and as a consequence, information in this document may materially change the coding, format and clinical context of patient data. In addition, data may be omitted in some cases. CLINICAL DECISIONS SHOULD BE BASED ON THE PRIMARY CLINICAL RECORDS. [employer] provides no warranty or guarantee of the accuracy or completeness of information in this document.
--- NOTE | 2025-07-30 15:13 | NEURO ---
NCS and/or EMG Patient Report Ordering Doctor: Eric Bonilla DATE OF SERVICE: 07/30/25 Mary presents complaints of numbness and tingling in the right arm and left leg. Electrodiagnostic findings: Right median motor nerve demonstrates prolonged latency with normal amplitude and conduction velocity. Right ulnar motor response within normal limits. Normal left peroneal and tibial motor responses. Normal F?waves. Right median sensory latency at the wrist. Needle EMG testing was performed in the right upper and left lower limb. Plus fibrillations were noted in the right pronator teres. Motor unit action potentials were normal amplitude and duration. Electrodiagnostic impression: This is an abnormal study. 1. Electrodiagnostic findings suggestive of right sided median mononeuropathy. This is consistent with a mild right carpal tunnel syndrome 2. There is no electrodiagnostic evidence for peripheral neuropathy in the left lower limb. 3. No electrodiagnostic evidence for cervical or lumbar radiculopathy. Multi Select Codes Neurology Neurology Interp Codes: 03507-88 Musc test done w/n test comp (interp) (2) and 89015-55 Nrv cndj test 11-12 studies (interp)
== END | disposition home or self-care (01) ==
PROVIDERS: PCP Family Medicine; Referring Provider Internal Medicine Endocrinology, Diabetes & Metabolism; Visit Provider Internal Medicine Endocrinology, Diabetes & Metabolism
DX: R20.2 Paresthesia of skin (principal); M79.609 Pain in unspecified limb
CPT/HCPCS: 95886; 95912